=== PATIENT | female | born 1940 | race Caucasian/White ===

== ENCOUNTER 2017-08-09 20:47 | Emergency (ER) | payer MEDICARE ==
[~2017-08-09] VITALS: Ht 147.3 cm; Wt 53.1 kg
[~2017-08-09 20:47] MED LIST: ASPIRIN CHEW81 MG PO; CLONAZEPAM0.5 MG PO; DEXILANT60 MG PO; DICYCLOMINE HCL10 MG PO; GABAPENTIN300 MG PO; GLYBURID-METFO1 EAC3 PO; HUMALOG100 UNIT/1 SQ; HYDROCODON-ACE1 EA12 PO; HYDROCODONE AP PO; IRON PO; LANTUS100 UNITS/ SQ; LEVOTHYROXINE100 MCG PO; LIPITOR20 MG PO; LOSARTAN-HCTZ1 EAC2 PO; METFORMIN HCL500 MG PO; METOPROLOL TART25 MG PO; NORCO 5-325 TA1 EACH PO; NORCO 7.5-3251 EACH PO; ONDANSETRON ODT8 MG PO; PLAVIX75 MG PO; PROTONIX40 MG PO; RANITIDINE HCL150 MG PO; RESTORIL15 MG PO; ROPINIROLE PO; TEMAZEPAM15 MG PO; Z ERYTHROMYCIN OU; Z.0.CLONAZEPAM0.5 MG PO; Z.0.GABAPENTIN300 MG PO; Z.0.LANTUS100 UNIT/1 SC; Z.0.LEVOTHYROXINE88 PO; [UNRECOGNIZED DRUG - OTHER] PO
--- OUTSIDE RECORDS SUMMARY | 2017-08-09 20:49 | XMS REPORT | Continuity of Care Document ---
Author Author [facility] Organization [facility] Address [address] [place] [address] Phone Unavailable Care Team Providers Care Physical Testing Supervisor Name Role Phone ELIDAROSEANNE DUBOIS PCP Insurance Providers Guarantor Merissa Romo Address [address] [phone] Email [email or web address] Payer [facility] Policy Number [id number] Subscriber's Name RubiMerissa trujillo Relationship 18 Self / Same As Patient Group Name RETIRED Effective Date 17 Payer Medicare A & B Policy Number [id number] Subscriber's Name RubiMerissa Centeno Relationship 18 Self / Same As Patient Group Name RETIRED Effective Date 05 Advance Directives Directive Response Recorded Date/Time Does the patient have an advance directive? No 05/28/17 11:42pm If yes, is advance directive on file with [facility]? No 05/28/17 11:42pm If not on file with [facility] will patient provide a copy? No 05/28/17 11:42pm Do you have a Directive to Physician? No 05/28/17 3:54pm Do you have a Medical Power of Process Plant Operator? No 05/28/17 3:54pm Do you have an out of hospital Do Not Resuscitate Order? No 05/28/17 3:54pm Do you have any special needs we should be aware of? No 05/28/17 3:54pm Do you have a support person here with you today? Yes 05/28/17 3:54pm Did patient receive Notice of Privacy Practices? Yes 05/28/17 3:54pm Did patient receive patient rights and responsibilities? Yes 05/28/17 3:54pm Problems Medical Problem Onset Date Status Acute urinary tract infection 01/01/2014 Acute Closed intertrochanteric fracture of right hip Unknown Hip fracture, right Unknown Hypokalemia 01/01/2014 Acute Medications Current Home Medications Medication Dose Units Route Directions Days Qty Instructions Start Date Aspirin (Aspirin Chew) 81 Mg Chew 81 Mg Oral Daily 30 Tab Atorvastatin Calcium (Lipitor) 20 Mg Tablet 40 Mg Oral Daily 30 Tab Clonazepam 0.5 Mg Tablet 0.5 Mg Oral Daily Clopidogrel Bisulfate (Plavix) 75 Mg Tablet 75 Mg Oral Daily 30 Tab Dexlansoprazole (Dexilant) 60 Mg Cap. 60 Mg Oral Daily THERAPEUTIC INTERCHANGE WITH PROTONIX PER [facility] Dicyclomine Hcl 10 Mg Capsule 10 Mg Oral Daily Gabapentin 300 Mg Capsule 300 Mg Oral Three Times A Day 60 Cap Gabapentin 300 Mg Capsule 300 Mg Oral Three Times A Day 90 Cap Hydrocodone Bit/Acetaminophen ([place] 5-325 Tablet) 1 Each Tablet 1 Each Oral As Needed Hydrocodone Bit/Acetaminophen ([place] 5-325 Tablet) 1 Each Tablet 1 Each Oral Three Times A Day 90 Tab Insulin Glargine (Lantus) 100 Units/Ml Ml 25 Units Sub-Q Twice A Day Insulin Lispro (Humalog) 100 Unit/1 Ml Cartridge 8 Units Sub-Q Three Times A Day Levothyroxine Sodium 100 Mcg Tablet 100 Mcg Oral Daily Losartan/Hydrochlorothiazide (Losartan-Hctz 100-12.5 Mg Tab) 1 Each Tablet Oral Daily Metoprolol Tartrate 25 Mg Tablet 25 Mg Oral Twice A Day Ondansetron (Ondansetron Odt) 8 Mg Tab.rapdis 8 Mg Oral As Needed Pantoprazole Sodium (Protonix) 40 Mg Suspdr.pkt 40 Mg Oral Daily 30 Tab Temazepam (Restoril) 15 Mg Capsule 15 Mg Oral Bedtime 30 Tab Temazepam 15 Mg Capsule Oral Bedtime 30 Past Home Medications Medication Directions Ordered Status Hydrocodone Bit/Acetaminophen (Hydrocodon-Acetaminoph 7.5-325) 1 Each Tablet, Oral As Needed Discontinued Hydrocodone Bit/Acetaminophen ([place] 7.5-325 Tablet) 1 Each Tablet, 1 Ea Oral Every 4 Hours as needed for Pain Discontinued Ropinirole , 2 Mg Oral Daily Discontinued Social History Social History Problem Response Recorded Date/Time Onset Date Status Hx Psychiatric Problems No 05/28/2017 11:42pm Not Applicable Not Applicable Hx Eating Disorder No 05/28/2017 11:42pm Not Applicable Not Applicable Hx Substance Use Disorder No 05/28/2017 11:42pm Not Applicable Not Applicable Hx Depression No 05/28/2017 11:42pm Not Applicable Not Applicable Hx Alcohol Use No 05/28/2017 11:42pm Not Applicable Not Applicable Hx Substance Use Treatment No 05/28/2017 11:42pm Not Applicable Not Applicable Hx Physical Abuse No 05/28/2017 11:42pm Not Applicable Not Applicable Smoking Status Start Date Stop Date Never Smoker Hospital Discharge Instructions No hospital discharge instruction information available. Plan of Care Discharge Date 06/07/17 4:53pm Disposition HOME HEALTH SERVICE Prescriptions See Medication Section Functional Status Query Response Date Recorded FUNCTIONAL STATUS ` June 02, 2017 3:00pm Assistive Devices Small Base Quad Cane May 29, 2017 12:01am Ambulation Ability Independent May 29, 2017 12:01am Toileting Ability Total Assistance June 05, 2017 5:54pm Allergies, Adverse Reactions, Alerts No known allergies. Immunizations No immunization information available. Vital Signs Acute Vital Signs Vital Response Date/Time Temperature (Fahrenheit) 97.5 degrees F (97.6 - 99.5) 06/07/2017 3:24pm Pulse Pulse Rate (adult) 68 bpm (60 - 90) 06/07/2017 3:24pm Respiratory Rate 20 bpm (12 - 24) 06/07/2017 3:24pm Blood Pressure 129/63 mm Hg 06/07/2017 3:24pm Height 4 ft 10 in 05/28/2017 2:35pm Weight 117.25 lb 05/28/2017 10:00pm Body Mass Index 24.5 kg/m^2 05/28/2017 11:42pm Results Laboratory Results Test Name Result Units Flags Reference Collection Date/Time Result Date/ Time Comments White Blood Count 12.05 x10e3/uL H 4.8-10.8 06/01/2017 6:45am 2017 7:44am Red Blood Count 3.11 x10e6/uL L 3.6-5.1 06/01/2017 6:45am 06/01/2017 7: 44am Hemoglobin 9.6 g/dL L 12.0-16.0 06/04/2017 6:35am 06/04/2017 7:21am Hematocrit 27.9 % L 34.2-44.1 06/04/2017 6:35am 06/04/2017 7:21am Mean Corpuscular Volume 85.5 fL 81-99 06/01/2017 6:45am 06/01/2017 7: 44am Mean Corpuscular Hemoglobin 28.9 pg 28-32 06/01/2017 6:45am 06/01/2017 7:44am Mean Corpuscular Hemoglobin Concent 33.8 g/dL 31-35 06/01/2017 6:45am 06/01/2017 7:44am Red Cell Distribution Width 13.8 % 11.7-14.4 06/01/2017 6:45am 2017 7:44am Platelet Count 307 x10e3/uL 140-360 06/01/2017 6:45am 06/01/2017 7: 44am Neutrophils (%) (Auto) 84.6 % H 38.7-80.0 06/01/2017 6:45am 06/01/2017 7 :44am Lymphocytes (%) (Auto) 6.6 % L 18.0-39.1 06/01/2017 6:45am 06/01/2017 7: 44am Monocytes (%) (Auto) 8.0 % 4.4-11.3 06/01/2017 6:45am 06/01/2017 7: 44am Eosinophils (%) (Auto) 0.0 % 0.0-6.0 06/01/2017 6:45am 06/01/2017 7: 44am Basophils (%) (Auto) 0.1 % 0.0-1.0 06/01/2017 6:45am 06/01/2017 7:44am IM GRANULOCYTES % 0.7 % 0.0-1.0 06/01/2017 6:45am 06/01/2017 7:44am Neutrophils # (Auto) 10.2 H 2.1-6.9 06/01/2017 6:45am 06/01/2017 7: 44am Lymphocytes # (Auto) 0.8 L 1.0-3.2 06/01/2017 6:45am 06/01/2017 7: 44am Monocytes # (Auto) 1.0 H 0.2-0.8 06/01/2017 6:45am 06/01/2017 7:44am Eosinophils # (Auto) 0.0 0.0-0.4 06/01/2017 6:45am 06/01/2017 7:44am Basophils # (Auto) 0.0 0.0-0.1 06/01/2017 6:45am 06/01/2017 7:44am Absolute Immature Granulocyte (auto 0.09 x10e3/uL 0-0.1 06/01/2017 6: 45am 06/01/2017 7:44am Prothrombin Time 13.5 seconds 11.9-14.5 05/28/2017 8:15pm 05/28/2017 8: 27pm Prothromb Time International Ratio 1.11 05/28/2017 8:15pm 2017 8:27pm Oral Anticoagulant Therapy INR Values: 1. Low Intensity Therapy 1.5 - 2.0 2. Moderate Intensity Therapy 2.0 - 3.0 3. High Intensity Therapy(1) 2.5 - 3.5 4. High Intensity Therapy(2) 3.0 - 4.0 5. Panic Value INR > 5.0 Activated Partial Thromboplast Time 27.2 seconds 23.8-35.5 05/28/2017 8: 15pm 05/28/2017 8:27pm Urine Color YELLOW YELLOW 05/31/2017 3:10pm 05/31/2017 3:20pm Urine Clarity SL CLOUDY CLEAR 05/31/2017 3:10pm 05/31/2017 3:20pm Urine Specific [place] 1.015 1.010-1.025 05/31/2017 3:10pm 2017 3:20pm Urine pH 5 5 - 7 05/31/2017 3:10pm 05/31/2017 3:20pm Urine Leukocyte Esterase NEGATIVE NEGATIVE 05/31/2017 3:10pm 2017 3:20pm Urine Nitrite NEGATIVE NEGATIVE 05/31/2017 3:10pm 05/31/2017 3:20pm Urine Protein TRACE H NEGATIVE 05/31/2017 3:10pm 05/31/2017 3:20pm Urine Glucose (UA) 3+ H NEGATIVE 05/31/2017 3:10pm 05/31/2017 3:20pm Urine Ketones NEGATIVE NEGATIVE 05/31/2017 3:10pm 05/31/2017 3:20pm Urine Urobilinogen 0.2 mg/dL 0.2 - 1 05/31/2017 3:10pm 05/31/2017 3: 20pm Urine Bilirubin NEGATIVE NEGATIVE 05/31/2017 3:10pm 05/31/2017 3: 20pm Urine Blood 2+ H NEGATIVE 05/31/2017 3:10pm 05/31/2017 3:20pm Urine WBC NONE /HPF 0-5 05/31/2017 3:10pm 05/31/2017 3:50pm Urine RBC NONE /HPF 0-5 05/31/2017 3:10pm 05/31/2017 3:50pm Urine Bacteria NONE /HPF NONE 05/31/2017 3:10pm 05/31/2017 3:50pm Urine Epithelial Cells NONE /LPF NONE 05/31/2017 3:10pm 05/31/2017 3: 50pm Urine Mucus FEW H RARE 05/28/2017 8:40pm 05/28/2017 9:07pm Sodium Level 132 mmol/L L 136-145 06/06/2017 6:30am 06/06/2017 7:23am Potassium Level 3.7 mmol/L 3.5-5.1 06/06/2017 6:30am 06/06/2017 7:23am Chloride Level 96 mmol/L L 98-107 06/06/2017 6:30am 06/06/2017 7:23am Carbon Dioxide Level 24 mmol/L 06/06/2017 6:30am 06/06/2017 7: 23am Anion Gap 15.7 mmol/L 8-06/06/2017 6:30am 06/06/2017 7:23am Blood Urea Nitrogen 15 mg/dL 11-0806/06/2017 6:30am 06/06/2017 7:23am Creatinine 0.79 mg/dL 0.57-1.11 06/06/2017 6:30am 06/06/2017 7:23am BUN/Creatinine Ratio 19 6-25 06/06/2017 6:30am 06/06/2017 7:23am Estimat Glomerular Filtration Rate > 60 ML/MIN 60- 06/06/2017 6:30am 7:23am Ranges were taken from the National Kidney Disease Education Program and the National Kid[employer] Foundation literature. Reference ranges: 60 or greater: Normal 16-59 (for 3 consecutive months): Chronic kidney disease 15 or less: Kidney failure Glucose Level 201 mg/dL H 74-118 06/06/2017 6:30am 06/06/2017 7:23am Calcium Level 8.6 mg/dL 8.4-10.2 06/06/2017 6:30am 06/06/2017 7:23am Bedside Glucose 165 mg/dL H 70-120 06/07/2017 3:35pm 06/07/2017 3:43pm Meter ID: [id number] Uric Acid 3.9 mg/dL 2.6-8.0 06/03/2017 12:17pm 06/03/2017 12:49pm Phosphorus Level 3.2 MG/DL 2.3-4.7 06/06/2017 6:30am 06/06/2017 7:23am Magnesium Level 0.9 MG/DL *L 1.3-2.1 06/06/2017 6:30am 06/06/2017 8:05am Results called to TIGIST RODRIGUEZ at 0804 on 06/06/17 by Ramona Ernst. RB OK. Total Bilirubin 1.5 mg/dL H 0.2-1.2 06/06/2017 6:30am 06/06/2017 7:23am Aspartate Amino Transf (AST/SGOT) 36 IU/L H 5-34 06/06/2017 6:30am 06/06 7:23am Alanine Aminotransferase (ALT/SGPT) 27 IU/L 0-55 06/06/2017 6:30am 7:23am Total Protein 5.9 g/dL L 6.5-8.1 06/06/2017 6:30am 06/06/2017 7:23am Albumin 2.2 g/dL L 3.5-5.0 06/06/2017 6:30am 06/06/2017 7:23am Globulin 3.7 g/dL H 2.3-3.5 06/06/2017 6:30am 06/06/2017 7:23am Albumin/Globulin Ratio 0.6 L 0.8-2.0 06/06/2017 6:30am 06/06/2017 7: 23am Alkaline Phosphatase 102 IU/L 40-150 06/06/2017 6:30am 06/06/2017 7: 23am Triglycerides Level 110 MG/DL 0-149 06/03/2017 12:17pm 06/03/2017 12: 49pm Cholesterol Level 78 MD/DL 0-199 06/03/2017 12:17pm 06/03/2017 12:49pm Less than 200 mg/dL Low Risk 201 - 239 mg/dL Borderline Risk 240 mg/dl and greater High Risk LDL Cholesterol 37 MG/DL L 60-130 06/03/2017 12:17pm 06/03/2017 12:49pm HDL Cholesterol 19 MG/DL L 40-60 06/03/2017 12:17pm 06/03/2017 12:49pm Cholesterol/HDL Ratio 4.1 H 3.0-3.6 06/03/2017 12:17pm 06/03/2017 12: 49pm Creatine Kinase 77 IU/L 29-168 06/03/2017 6:44am 06/03/2017 8:44am Creatine Kinase MB 1.50 ng/mL 0-5.0 06/03/2017 6:44am 06/03/2017 8: 50am Troponin I 0.00 ng/mL 0.0-0.78 06/03/2017 6:44am 06/03/2017 8:50am Thyroid Stimulating Hormone (TSH) 5.356 uIU/mL H 0.350-4.940 06/03/2017 12:17pm 06/03/2017 1:08pm Procedures Procedure Status Date Provider(s) Computed tomography of brain without radiopaque contrast Active 05/28/17 LLUVIA DIEGO NP MRI jnt of lwr extre w/o dye Active 05/28/17 LLUVIA DIEGO NP Magnetic resonance imaging of pelvis without contrast Active 05/28/17 DIEGO ,LLUVIA L HOUSING PROPERTY MANAGER Encounters Encounter Location Arrival/Admit Date Discharge/Depart Date Attending Provider Discharged Inpatient [facility] 05/28/17 9:54pm 06/07/17 4:53pm ROSEANNE MARRERO
--- NOTE | 2017-08-09 21:41 | Diagnostic Imaging Report ---
HIP LEFT 2-3 VW (+/- PELVIS) HISTORY: Hip pain. COMPARISON: MRI of the pelvis on 05/28/2017 FINDINGS: Bones: No displaced fracture. Postsurgical repair of intertrochanteric fracture with intramedullary gabriela and interlocking screw on the right hip Osseous alignment is within normal limits. Joints: Mild degenerative change of the symphysis pubis and left hip joint. Degenerative changes of the lower lumbar spine. Soft tissues: The soft tissues appear unremarkable. IMPRESSION: No acute osseous abnormality. Signed by: Dr. Meng Lay M.D. on 08/09/2017 9:37 PM
--- NOTE | 2017-08-10 00:28 | Diagnostic Imaging Report ---
TECHNIQUE: Computed tomography imaging of the LEFT HIP was performed WITHOUT injected contrast. HISTORY: Pain, evaluate for occult fracture COMPARISON: None available. FINDINGS: No displaced fracture. 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 Calcification within the left hamstring origin. Vascular calcifications. The bladder is distended. IMPRESSION: No displaced left hip fracture. Calcium pyrophosphate deposition within the left hip Signed by: Dr. Ari Marrero M.D. on 08/10/2017 7:07 AM
[2017-08-10 00:38] VITALS: BP 127/77
== END 2017-08-10 00:46 | disposition home or self-care (01) ==
LOC: ER 20:47 → MERGE 20:47 → ER 08-10 00:46
DX: M25.552 Pain in left hip (principal); M16.12 Unilateral primary osteoarthritis, left hip; I10 Essential (primary) hypertension; E11.9 Type 2 diabetes mellitus without complications; E03.9 Hypothyroidism, unspecified
CPT/HCPCS: 99284

== ENCOUNTER → 2017-10-05 | Day surgery (SDC) | payer MEDICARE ==
[2017-10-02 15:52] LABS: BASOPHILS # (AUTO) 0.1 (0.0-0.1); BASOPHILS % 1.1 % (0.0-1.0); EOSINOPHILS # (AUTO) 0.2 (0.0-0.4); EOSINOPHILS % 3.3 % (0.0-6.0); HEMATOCRIT 34.1 % (34.2-44.1); HEMOGLOBIN 12.2 g/dL (12.0-16.0); LYMPHOCYTES # (AUTO) 2.3 (1.0-3.2); LYMPHOCYTES % 41.3 % (18.0-39.1); MEAN CORPUSCULAR HEMOGLOBIN 31.1 pg (28-32); MEAN CORPUSCULAR HGB CONC 35.8 g/dL (31-35); MONOCYTES # (AUTO) 0.5 (0.2-0.8); MONOCYTES % 8.6 % (4.4-11.3); NEUTROPHILS # (AUTO) 2.5 (2.1-6.9); NEUTROPHILS % 44.8 % (38.7-80.0); PLATELET COUNT 315 x10e3/uL (140-360); RED BLOOD COUNT 3.92 x10e6/uL (3.6-5.1); RED CELL DISTRIBUTION WIDTH 14.5 % (11.7-14.4)
[~2017-10-05] MED LIST changes: +LABETALOL HCL 20 ML ONE; +MIDAZOLAM HCL 2 MG/2 ML VIAL ONE; +PROPOFOL IV EMULSION 10 MG/ML 20 ML VIAL ONE
--- NOTE | 2017-10-05 17:23 | Operative Report ---
DATE OF PROCEDURE: October 05, 2017 REFERRING PHYSICIAN: Dr. Dupont. PROCEDURE PERFORMED: Esophagogastroduodenoscopy with esophageal dilatation and biopsy. INDICATIONS FOR ESOPHAGOGASTRODUODENOSCOPY: Dysphagia. MEDICATION: Patient was done under MAC. Please see anesthesiologist's note. PROCEDURE: With the patient in lateral decubitus position, flexible fiberoptic Olympus gastroscope was introduced into the esophagus under direct visualization without any difficulty. There was some patchy erythema noted in distal esophagus. There was a mild stricture noted at the GE junction that was dilated to size 52-[place] Peace. The scope was then advanced with ease into the stomach. Mucosa overlying the antrum and the body revealed some patchy areas of erythema. A minute gastric ulcer was noted in the peripyloric area without active bleeding and that was biopsied. The pylorus appeared to be of normal contour and shape. Was intubated with ease and the scope was advanced all the way to the 2nd portion of the duodenum. The scope was then withdrawn slowly. There were some mild inflammatory changes noted in the proximal 2nd portion. In the duodenal bulb several ulcers were noted. They were superficial up to 8 mm in size without active bleeding or stigmata of recent hemorrhage. The scope was then withdrawn back into the stomach and retroflexed, and mucosa overlying the fundus and the cardia appeared to be within normal limits. The scope was then straightened out and was subsequently withdrawn. Patient tolerated procedure well. IMPRESSION: 1. Distal esophagitis, mild. 2. Esophageal stricture at gastroesophageal junction dilated to a size 52-[place] Peace. 3. Gastritis, mild. 4. Gastric ulcer, antrum, biopsied. 5. Duodenal ulcers , bulb, multiple, largest approximately 8 mm in size without active bleeding or stigmata of recent hemorrhage. PLAN: Follow up histology. Initiate Protonix 40 mg 1 p.o. q.a.m. a.c. Job#: [id number] cc:ROSEANNE DUPONT MD
== END | disposition home or self-care (01) ==
LOC: OR 12:45
PROVIDERS: ATTEND Internal Medicine Gastroenterology
DX: K22.2 Esophageal obstruction (principal); K29.50 Unspecified chronic gastritis without bleeding; K25.9 Gastric ulcer, unspecified as acute or chronic, without hemorrhage or perforation; K26.9 Duodenal ulcer, unspecified as acute or chronic, without hemorrhage or perforation; K20.9 Esophagitis, unspecified; K21.9 Gastro-esophageal reflux disease without esophagitis; E11.9 Type 2 diabetes mellitus without complications; I10 Essential (primary) hypertension; I25.2 Old myocardial infarction; I25.10 Atherosclerotic heart disease of native coronary artery without angina pectoris; E03.9 Hypothyroidism, unspecified; G62.9 Polyneuropathy, unspecified; E78.00 Pure hypercholesterolemia, unspecified; R05 Cough; F41.9 Anxiety disorder, unspecified; Z01.810 Encounter for preprocedural cardiovascular examination; Z01.812 Encounter for preprocedural laboratory examination; Z79.02 Long term (current) use of antithrombotics/antiplatelets; Z79.4 Long term (current) use of insulin; Z79.82 Long term (current) use of aspirin; Z95.5 Presence of coronary angioplasty implant and graft
CPT/HCPCS: 36415; 43239; 43450; 85025; 88305; 88312; 93005; J2250; J3490

== ENCOUNTER → 2018-05-02 | Outpatient (CLI) | payer MEDICARE ==
[~2018-05-02] MED LIST changes: -LABETALOL HCL 20 ML ONE; -MIDAZOLAM HCL 2 MG/2 ML VIAL ONE; -PROPOFOL IV EMULSION 10 MG/ML 20 ML VIAL ONE
--- NOTE | 2018-05-03 07:47 | Diagnostic Imaging Report ---
MRI SPINE LUMBAR WO HISTORY: Sciatica, left hip pain COMPARISON: None. TECHNIQUE: Sagittal T1, sagittal T2, sagittal STIR, axial T2, coronal T2, and axial proton density weighted images of the lumbar spine were obtained without contrast. DISCUSSION: There are 5 nonrib-bearing lumbar vertebral bodies. L5 is sacralized with bilateral pseudoarthroses and rudimentary L5-S1 disc. There may be rudimentary ribs at T12. The vertebral bodies are numbered accordingly. Alignment: Slight straightening of the lumbar lordosis. Thoracolumbar levoscoliosis is centered at L1-L2. Vertebrae: No definite evidence for fracture or neoplasm. Conus medullaris: Normal, ends at L1. Cauda equina: There is mild cauda equina crowding at L3-L4. No masses or arachnoiditis. Posterior paraspinal muscles: There is bilateral paraspinal muscle atrophy at the lumbosacral junction. Soft tissues: No signal abnormalities. Multilevel disc degeneration is advanced at L1-L2, L3-L4, and L4-L5. There are nonspecific minimal multilevel inflammatory endplate changes. T12-L1: Patent canal and foramina. L1-L2: Mild canal stenosis due to disc bulge and ligamentum flavum thickening. Moderate right foraminal stenosis due to disc bulge and facet arthrosis. No significant left foraminal stenosis. L2-L3: Mild canal stenosis due to disc bulge and ligamentum flavum thickening. Mild to moderate right and mild left foraminal stenoses due to disc bulge and facet arthrosis. Small bilateral facet effusions are present, right greater than left. L3-L4: There is mild left lateral listhesis of L3 on L4. Moderate canal stenosis due to disc bulge and ligamentum flavum thickening. Both lateral recesses are effaced. Moderate to severe right and moderate left foraminal stenoses due to disc bulge and facet arthrosis. There is impingement of the exiting right L3 nerve root. Small bilateral facet effusions are present. L4-L5: Moderate canal stenosis due to disc bulge and ligamentum flavum thickening. Both lateral recesses are slightly effaced. Severe left foraminal stenosis due to disc bulge and facet arthrosis. There is impingement of the exiting left L4 nerve root. No significant right foraminal stenosis. Small bilateral facet effusions are present. L5-S1: Patent canal and foramina. IMPRESSION: 1. Multilevel disc degeneration, advanced at L1-L2, L3-L4, and L4-L5, with nonspecific minimal multilevel inflammatory endplate changes. Associated thoracolumbar levoscoliosis centered at L1-L2. 2. Multilevel degenerative canal stenoses - moderate at L3-L4 and L4-L5. 3. Multilevel bilateral degenerative foraminal stenoses - moderate to severe on the right at L3-L4 and severe on the left at L4-L5. Signed by: Dr. Dennis Resendiz M.D. on 05/03/2018 7:44 AM
== END ==
LOC: MRI 16:06
PROVIDERS: ATTEND Specialist
DX: M54.30 Sciatica, unspecified side (principal)
CPT/HCPCS: 72148

== ENCOUNTER → 2018-09-23 | Day surgery (SDC) | payer MEDICARE ==
[2018-09-16 17:26] LABS: BASOPHILS # (AUTO) 0.1 (0.0-0.1); BASOPHILS % 0.5 % (0.0-1.0); EOSINOPHILS # (AUTO) 0.1 (0.0-0.4); HEMATOCRIT 42.6 % (34.2-44.1); HEMOGLOBIN 13.9 g/dL (12.0-16.0); LYMPHOCYTES # (AUTO) 2.7 (1.0-3.2); LYMPHOCYTES % 25.6 % (18.0-39.1); MEAN CORPUSCULAR HEMOGLOBIN 30.2 pg (28-32); MEAN CORPUSCULAR HGB CONC 32.6 g/dL (31-35); MEAN CORPUSCULAR VOLUME 92.6 fL (81-99); MONOCYTES # (AUTO) 0.6 (0.2-0.8); MONOCYTES % 5.4 % (4.4-11.3); NEUTROPHILS % 66.8 % (38.7-80.0); PLATELET COUNT 277 x10e3/uL (140-360); RED CELL DISTRIBUTION WIDTH 13.9 % (11.7-14.4)
[~2018-09-23] MED LIST changes: +CLOPIDOGREL75 MG PO; +FENTANYL CITRATE/PF 100MCG/2 ML INJ ONE; +LIDOCAINE HCL 2% LOCAL INJ 5 ML SDV VIAL INJ ONE; +MIDAZOLAM HCL 2 MG/2 ML VIAL ONE; +OMEPRAZOLE40 MG PO; +PROPOFOL IV EMULSION 10 MG/ML 50 ML VIAL ONE
[2018-09-23 11:10] VITALS: BP 123/70
--- NOTE | 2018-09-23 17:16 | Operative Report ---
DATE OF PROCEDURE: 09/23/2018 SURGEON: Fidel Hilario MD REFERRING PHYSICIAN: Dr. Dupont. PROCEDURE: EGD with esophageal dilatation and pyloric channel dilatation per TTS balloon dilators. INDICATIONS FOR PROCEDURE: Dysphagia to solids. MEDICATIONS: The patient was done under MAC, please see anesthesiologist's note. PROCEDURE IN DETAIL: With the patient in left lateral decubitus position, flexible fiberoptic Olympus gastroscope was introduced into the esophagus under direct visualization without any difficulty. There was some patchy erythema noted in the distal esophagus. A mild stricture was noted at the GE junction and was dilated to size 52-[place] Peace. The scope was then advanced with ease into the stomach. Mucosa overlying the antrum and the distal body revealed some diffuse erythema and low-grade to moderate edema. Biopsies were obtained and sent to stain for H. pylori. Large amount of retained undigested food was also noted in the stomach precluding visualization of the fundus and the proximal half of the body. The pyloric channel was strictured and that was dilated to size 20 mm per TTS balloon dilators. The scope was then advanced with ease into the duodenum all the way to the second portion of the duodenum and it was then withdrawn slowly. Mucosa overlying the proximal and second portion and duodenal bulb appeared to be within normal limits. The scope was subsequently withdrawn. The patient tolerated the procedure well. IMPRESSION: 1. Distal esophagitis, mild. 2. Esophagus dilated to size 52-[place] Peace. 3. Gastritis, biopsied. Biopsies sent to stain for H. pylori. Large amount of retained undigested food in stomach precluding visualization of fundus and proximal half of the body. 4. Pyloric channel stricture dilated to size 20 mm per TTS balloon dilators. PLAN: Follow up histology. Increase omeprazole to 40 mg one p.o. a.c. b.i.d. Fidel Hilario MD [facility] [place] /[id number] cc: Diomedes Dupont MD
== END | disposition home or self-care (01) ==
LOC: OR 08:05
PROVIDERS: ATTEND Internal Medicine Gastroenterology
DX: K22.2 Esophageal obstruction (principal); R13.10 Dysphagia, unspecified; R12 Heartburn; R14.0 Abdominal distension (gaseous); Z01.810 Encounter for preprocedural cardiovascular examination; Z01.812 Encounter for preprocedural laboratory examination; K64.8 Other hemorrhoids; Z86.010 Personal history of colon polyps; K57.90 Diverticulosis of intestine, part unspecified, without perforation or abscess without bleeding; K20.8 Other esophagitis; I10 Essential (primary) hypertension; K26.9 Duodenal ulcer, unspecified as acute or chronic, without hemorrhage or perforation; E11.9 Type 2 diabetes mellitus without complications; E03.9 Hypothyroidism, unspecified; K21.9 Gastro-esophageal reflux disease without esophagitis; I25.2 Old myocardial infarction; Z95.5 Presence of coronary angioplasty implant and graft; Z80.9 Family history of malignant neoplasm, unspecified; Z83.3 Family history of diabetes mellitus; Z82.49 Family history of ischemic heart disease and other diseases of the circulatory system; K29.70 Gastritis, unspecified, without bleeding; K31.1 Adult hypertrophic pyloric stenosis; I25.10 Atherosclerotic heart disease of native coronary artery without angina pectoris
CPT/HCPCS: 36415 ×2; 43239; 43245; 43450; 82948; 85025; 88305; 88312; 93005; C1726; J2001; J2250; J2704

== ENCOUNTER 2019-07-31 05:55 | Inpatient (IN) | payer MEDICARE, OTHER ==
[2019-07-31] VITALS (11 sets, daily range): BP systolic 95–142; BP diastolic 55–88
[~2019-07-31] VITALS: Ht 147.3 cm; Wt 69.6 kg
[~2019-07-31 05:55] MED LIST changes: -FENTANYL CITRATE/PF 100MCG/2 ML INJ ONE; +KLONOPIN0.5 MG PO; +LEVOTHYROXINE100 MC1 PO; -LIDOCAINE HCL 2% LOCAL INJ 5 ML SDV VIAL INJ ONE; -MIDAZOLAM HCL 2 MG/2 ML VIAL ONE; +OMEPRAZOLE20 MG PO; -PROPOFOL IV EMULSION 10 MG/ML 50 ML VIAL ONE
--- OUTSIDE RECORDS SUMMARY | 2019-07-31 05:59 | XMS REPORT ---
Author Author [facility] Address Unknown Phone Unavailable Care Team Providers Care Financial Accounting Manager Name Role Phone NO, PCP PP Unavailable Sebastián NELSON Unavailable Unavailable KAM ARRINGTON Unavailable Unavailable Yang JACOBSEN Unavailable Unavailable ELIDA LUCIADAVARACHANI Unavailable Unavailable BANDHAKAVI, SUBHADRA Unavailable Unavailable NARESH PINEDA Unavailable Unavailable LYNSEY GARCIA Unavailable Unavailable Payers Payer Name Policy Type Policy Number Effective Date Expiration Date Medicare A & B [id number] 2005 00:00:00 [facility] [id number] [facility] [id number] 2017 00:00:00 Medicare A & B [id number] 2005 00:00:00 [facility] [id number] 2017 00:00:00 Medicare A & B [id number] 2005 00:00:00 Problems Condition Name Condition Details Condition Category Status Onset Date Resolution Date Last Treatment Date Treating Clinician Comments Acute urinary tract infection Problem Active 2014-01-01 00:00:00 Hypokalemia Problem Active 2014-01-01 00:00:00 Closed intertrochanteric fracture of right femur Closed intertrochanteric fracture of right hip Problem Active Fracture of right hip Hip fracture, right Problem Active Allergies, Adverse Reactions, Alerts This patient has no known allergies or adverse reactions. Medications Ordered Medication Name Filled Medication Name Start Date Stop Date Current Medication? Ordering Clinician Indication Dosage Frequency Signature (SIG) Comments Components Atorvastatin Calcium (Lipitor) 20 Mg Tablet Atorvastatin Calcium (Lipitor) 20 Mg Tablet Yes 40 Bedtime Clonazepam (Klonopin) 0.5 Mg Tablet Clonazepam (Klonopin) 0.5 Mg Tablet Yes .5 Daily Clopidogrel Bisulfate (Plavix) 75 Mg Tablet Clopidogrel Bisulfate (Plavix) 75 Mg Tablet Yes 75 Daily Hydrocodone Bit/Acetaminophen ([place] 5-325 Tablet) 1 Each Tablet Hydrocodone Bit/Acetaminophen ([place] 5-325 Tablet) 1 Each Tablet Yes 1 Every 8 Hours as needed for Pain Levothyroxine Sodium 100 Mcg Vial Levothyroxine Sodium 100 Mcg Vial Yes 150 Daily Metoprolol Tartrate 25 Mg Tablet Metoprolol Tartrate 25 Mg Tablet Yes 25 Twice A Day Omeprazole 20 Mg Capsule. Omeprazole 20 Mg Capsule. Yes 20 Daily Temazepam 15 Mg Capsule Temazepam 15 Mg Capsule Yes 15 Bedtime Aspirin (Aspirin Chew) 81 Mg Chew Aspirin (Aspirin Chew) 81 Mg Chew Yes 81 Daily Atorvastatin Calcium (Lipitor) 20 Mg Tablet Atorvastatin Calcium (Lipitor) 20 Mg Tablet Yes 40 Daily Clonazepam 0.5 Mg Tablet Clonazepam 0.5 Mg Tablet Yes .5 Daily Clopidogrel Bisulfate (Plavix) 75 Mg Tablet Clopidogrel Bisulfate (Plavix) 75 Mg Tablet Yes 75 Daily Dexlansoprazole (Dexilant) 60 Mg Cap. Dexlansoprazole (Dexilant) 60 Mg Cap. Yes 60 Daily Dicyclomine Hcl 10 Mg Capsule Dicyclomine Hcl 10 Mg Capsule Yes 10 Daily Gabapentin 300 Mg Capsule Gabapentin 300 Mg Capsule Yes 300 Three Times A Day Gabapentin 300 Mg Capsule Gabapentin 300 Mg Capsule Yes 300 Three Times A Day Hydrocodone Bit/Acetaminophen ([place] 5-325 Tablet) 1 Each Tablet Hydrocodone Bit/Acetaminophen ([place] 5-325 Tablet) 1 Each Tablet Yes 1 As Needed Hydrocodone Bit/Acetaminophen ([place] 5-325 Tablet) 1 Each Tablet Hydrocodone Bit/Acetaminophen ([place] 5-325 Tablet) 1 Each Tablet Yes 1 Three Times A Day Insulin Glargine (Lantus) 100 Units/Ml Ml Insulin Glargine (Lantus) 100 Units/Ml Ml Yes 25 Twice A Day Insulin Lispro (Humalog) 100 Unit/1 Ml Cartridge Insulin Lispro (Humalog) 100 Unit/1 Ml Cartridge Yes 8 Three Times A Day Levothyroxine Sodium 100 Mcg Tablet Levothyroxine Sodium 100 Mcg Tablet Yes 100 Daily Losartan/Hydrochlorothiazide (Losartan-Hctz 100-12.5 Mg Tab) 1 Each Tablet Losartan/Hydrochlorothiazide (Losartan-Hctz 100-12.5 Mg Tab) 1 Each Tablet Yes Daily Metoprolol Tartrate 25 Mg Tablet Metoprolol Tartrate 25 Mg Tablet Yes 25 Twice A Day Ondansetron (Ondansetron Odt) 8 Mg Tab.rapdis Ondansetron (Ondansetron Odt) 8 Mg Tab.rapdis Yes 8 As Needed Pantoprazole Sodium (Protonix) 40 Mg Suspdr.pkt Pantoprazole Sodium (Protonix) 40 Mg Suspdr.pkt Yes 40 Daily Temazepam (Restoril) 15 Mg Capsule Temazepam (Restoril) 15 Mg Capsule Yes 15 Bedtime Temazepam 15 Mg Capsule Temazepam 15 Mg Capsule Yes Bedtime Hydrocodone Bit/Acetaminophen (Hydrocodon-Acetaminoph 7.5-325) 1 Each Tablet, Oral Hydrocodone Bit/Acetaminophen (Hydrocodon-Acetaminoph 7.5-325) 1 Each Tablet, Oral 2016-06-21 00:00:00 No As Needed Hydrocodone Bit/Acetaminophen ([place] 7.5-325 Tablet) 1 Each Tablet, 1 Ea Oral Hydrocodone Bit/Acetaminophen ([place] 7.5-325 Tablet) 1 Each Tablet, 1 Ea Oral 2016-06-21 00:00:00 No 1 Every 4 Hours as needed for Pain Ropinirole , 2 Mg Oral Ropinirole , 2 Mg Oral 2014-01-01 00:00:00 No 2 Daily Procedures and Interventions Procedure Date / Time Performed Performing Clinician Computed tomography, lower extremity; without contrast material 2017-08-09 00:00:00 AUSTIN JACOBSEN TRANSFUSE NONAUT RED BLOOD CELLS IN PERIPH VEIN, PERC 2017-06-03 00:00:00 ELIDA, THANDAVARAJAN INSERTION OF INTRAMED FIX INTO R UP FEMUR, PERC APPROACH 2017-06-02 00:00:00 KAM ARRINGTON Computed tomography of brain without radiopaque contrast 2017-05-28 00:00:00 LLUVIA DIEGO MRI jnt of lwr extre w/o dye 2017-05-28 00:00:00 LLUVIA DIEGO Magnetic resonance imaging of pelvis without contrast 2017-05-28 00:00:00 LLUVIA DIEGO Encounters Start Date/Time End Date/Time Encounter Type Admission Type Attending Clinicians Care Facility Care Department Encounter ID 2018-08-06 17:47:00 2018-08-08 13:03:00 Discharged Inpatient (obs) 1 EDIL NELSON [facility] [id number] 2017-08-09 20:47:00 2017-08-10 00:46:00 Departed Emergency Room ER AUSTIN JACOBSEN [facility] [id number] 2017-05-28 21:54:00 2017-06-07 16:53:00 Discharged Inpatient ER ROSEANNE MARRERO [facility] [id number] Results Test Description Test Time Test Comments Text Results Atomic Results Result Comments Bedside Glucose 2018-08-08 07:27:00 Bedside Glucose (test ofum=25103-1) 295 70-120 Meter ID: [id number] Kinase ME2656-21-54 13:57:00* Test Item Value Reference Range Comments Creatine Kinase MB (test btko=85786-2) 1.90 0-5.0 Troponin E0051-95-49 13:57:00* Test Item Value Reference Range Comments Troponin I (test bvfw=JRG8380) 0.010 0-0.300 Creatine Kctzgj9625-41-59 13:49:00* Test Item Value Reference Range Comments Creatine Kinase (test rcjj=4888-6) 57 29-168 Triglycerides Jaupk0196-86-51 06:09:00* Test Item Value Reference Range Comments Triglycerides Level (test uiay=8788-1) 109 0-149 Cholesterol Bzfce7610-20-66 06:09:00* Test Item Value Reference Range Comments Cholesterol Level (test ppae=4692-4) 96 0-199 Less than 200 mg/dL Low Xgou340 - 239 mg/dL Borderline Kupa046 m g/dl and greater High Risk LDL Emxnyyhgtpc0862-34-20 06:09:00* Test Item Value Reference Range Comments LDL Cholesterol (test aify=0018-2) 38 60-130 HDL Nfraglkehkc8655-61-89 06:09:00* Test Item Value Reference Range Comments HDL Cholesterol (test liwd=5337-2) 36 40-60 Cholesterol/HDL Csogx6581-03-80 06:09:00* Test Item Value Reference Range Comments Cholesterol/HDL Ratio (test ccxh=4867-0) 2.7 3.0-3.6 Urine BII7250-72-59 15:23:00* Test Item Value Reference Range Comments Urine WBC (test jwdt=8537-5) NONE 0-5 Urine ZRB5374-55-83 15:23:00* Test Item Value Reference Range Comments Urine RBC (test jtmf=13585-5) NONE 0-5 Urine Yxfwngnj4633-45-27 15:23:00* Test Item Value Reference Range Comments Urine Bacteria (test tjyj=84425-4) FEW NONE Urine Epithelial Opfsl9376-61-96 15:23:00* Test Item Value Reference Range Comments Urine Epithelial Cells (test jvvm=35859-5) MODERATE NONE Influenza Virus Types A,B Zlkclke4772-48-18 15:10:00* Test Item Value Reference Range Comments Influenza Virus Types A,B Antigen (test hfoi=88671-0) NEGATIVE NEGATIVE CHEST SINGLE (PORTABLE)2018-08-06 15:10:00 [place] [address] Patient Name: DEMETRIUS ECHEVERRIA MR #: [id number] : 1940 Age/Sex: 77/F Req #: [id number] Adm Physician: Ordered by: SHAKIRA STROUD NP Report #: [id number] Location: ER Room/Bed: Procedure: [id number] DX/CHEST SINGLE (PORTABLE) Exam Date: 08/06/18 Exam Time: 1430 REPORT STATUS: Signed Examination: Single AP view of the chest. COMPARISON: None. INDICATI ON: Chest pain DISCUSSION: Lines/tubes: None. Lungs: The l ungs are well inflated and clear. No pneumonia or pulmonary edema. Pleura: No pleural effusion or pneumothorax. Heart and mediastinum: The heart and the mediastinum are unremarkable. Bones and soft tissues: No acute bony a bnormalities. IMPRESSION: 1. No acute cardiopulmonary abnormaliti es. Signed by: Dr. No Figueroa M.D. on 08/06/2018 3:11 PM Dictate d By: NO FIGUEROA MD 1511 COPY TO: MARIALUISA STROUD COMIC ARTIST B-Type Natriuretic Pnqvzpf2815-30-69 15:09:00* Test Item Value Reference Range Comments B-Type Natriuretic Peptide (test yecm=31656-8) 64.9 0-100 Sodium Neygv5243-57-18 15:03:00* Test Item Value Reference Range Comments Sodium Level (test pimg=9037-1) 135 136-145 Potassium Qynzr4761-06-69 15:03:00* Test Item Value Reference Range Comments Potassium Level (test fomd=0139-6) 3.4 3.5-5.1 Chloride Zagur4388-83-07 15:03:00* Test Item Value Reference Range Comments Chloride Level (test vvye=2872-6) 98 98-107 Carbon Dioxide Lcowk2407-61-83 15:03:00* Test Item Value Reference Range Comments Carbon Dioxide Level (test yqiy=9415-4) 26 22-29 Anion Apv5810-37-52 15:03:00* Test Item Value Reference Range Comments Anion Gap (test cmkg=12381-4) 14.4 8-16 Blood Urea Iuptilfb8938-14-70 15:03:00* Test Item Value Reference Range Comments Blood Urea Nitrogen (test vmwq=9709-2) 24 7-26 Dwcxlniprc9054-62-25 15:03:00* Test Item Value Reference Range Comments Creatinine (test fdjh=4294-2) 0.87 0.57-1.11 BUN/Creatinine Uidye5080-81-44 15:03:00* Test Item Value Reference Range Comments BUN/Creatinine Ratio (test ycsy=2043-7) 28 6-25 Estimat Glomerular Filtration Bnxg3522-77-34 15:03:00* Test Item Value Reference Range Comments Estimat Glomerular Filtration Rate (test oyui=098887971) > 60 >60 Ranges were taken from the National Kidney Disease Education Program and the [facility] Kidney Foundation literature.Reference ranges:60 or greater: Claxvm18-78 ( for 3 consecutive months): Chronic kidney disease 15 or less: Kidney failure Glucose Dnbxs3695-40-55 15:03:00* Test Item Value Reference Range Comments Glucose Level (test vobj=HAN9550) 185 74-118 Calcium Ccpvv1190-60-14 15:03:00* Test Item Value Reference Range Comments Calcium Level (test mgap=15372-2) 9.9 8.4-10.2 Magnesium Bhwqy8371-46-18 15:03:00* Test Item Value Reference Range Comments Magnesium Level (test pulq=66295-4) 1.4 1.3-2.1 Total Wlbbkbggo8211-36-90 15:03:00* Test Item Value Reference Range Comments Total Bilirubin (test kkcv=5614-7) 1.3 0.2-1.2 Aspartate Amino Transf (AST/SGOT)2018-08-06 15:03:00* Test Item Value Reference Range Comments Aspartate Amino Transf (AST/SGOT) (test code=Aspartate Amino Transf (AST/SGOT)) 34 5-34 Alanine Aminotransferase (ALT/SGPT)2018-08-06 15:03:00* Test Item Value Reference Range Comments Alanine Aminotransferase (ALT/SGPT) (test nxjo=0441-3) 83 0-55 Total Solupnj8349-70-52 15:03:00* Test Item Value Reference Range Comments Total Protein (test mani=8866-8) 6.8 6.5-8.1 Bouelhh5516-25-20 15:03:00* Test Item Value Reference Range Comments Albumin (test dsit=8578-9) 3.3 3.5-5.0 Aiultyhv3361-69-03 15:03:00* Test Item Value Reference Range Comments Globulin (test zzsu=11508-9) 3.5 2.3-3.5 Albumin/Globulin Edqlb8370-15-18 15:03:00* Test Item Value Reference Range Comments Albumin/Globulin Ratio (test shnr=7410-8) 0.9 0.8-2.0 Alkaline Wzaulstgnir8553-90-95 15:03:00* Test Item Value Reference Range Comments Alkaline Phosphatase (test qkbr=8938-5) 91 40-150 Urine Yllqg9429-52-40 15:01:00* Test Item Value Reference Range Comments Urine Color (test usys=7148-6) YELLOW YELLOW Urine Mkwcgpv1850-95-80 15:01:00* Test Item Value Reference Range Comments Urine Clarity (test uact=41235-9) SL CLOUDY CLEAR Urine Specific Djyxufe7928-45-46 15:01:00* Test Item Value Reference Range Comments Urine Specific [place] (test cqoq=9712-0) 1.015 1.010-1.025 Urine tI4091-98-09 15:01:00* Test Item Value Reference Range Comments Urine pH (test yois=92976-2) 6 5-7 Urine Leukocyte Blheeiha8876-13-13 15:01:00* Test Item Value Reference Range Comments Urine Leukocyte Esterase (test korj=7891-9) TRACE NEGATIVE Urine Alflxpw0998-66-24 15:01:00* Test Item Value Reference Range Comments Urine Nitrite (test gzqt=01303-6) NEGATIVE NEGATIVE Urine Laprdcf5704-00-01 15:01:00* Test Item Value Reference Range Comments Urine Protein (test wkus=0548-5) 1+ NEGATIVE Urine Glucose (UA)2018-08-06 15:01:00* Test Item Value Reference Range Comments Urine Glucose (UA) (test mmfc=2991-7) 2+ NEGATIVE Urine Qxqvqvs0352-89-36 15:01:00* Test Item Value Reference Range Comments Urine Ketones (test qwup=55508-9) 1+ NEGATIVE Urine Pgzwecilldje4835-67-24 15:01:00* Test Item Value Reference Range Comments Urine Urobilinogen (test wcfv=91903-1) 0.2 0.2-1 Urine Iedtflcco8713-31-77 15:01:00* Test Item Value Reference Range Comments Urine Bilirubin (test khlo=5195-0) 1+ NEGATIVE Urine Unsqy8667-98-09 15:01:00* Test Item Value Reference Range Comments Urine Blood (test yefh=82544-8) NEGATIVE NEGATIVE Prothrombin Laot9899-01-15 14:59:00* Test Item Value Reference Range Comments Prothrombin Time (test vcyw=2124-8) 13.2 11.9-14.5 Prothromb Time International Wgipj6754-32-62 14:59:00* Test Item Value Reference Range Comments Prothromb Time International Ratio (test qoye=1044-7) 0.95 Oral Anticoagulant Therapy INR Values:1. Low Intensity Therapy 1.5 - 2.02 . Moderate Intensity Therapy 2.0 - 3.03. High Intensity Therapy(1) 2.5 - 3. 54. High Intensity Therapy(2) 3.0 - 4.05. Panic Value INR > 5.0 Activated Partial Thromboplast Iqgw5347-14-06 14:59:00* Test Item Value Reference Range Comments Activated Partial Thromboplast Time (test zkcf=70942-0) 20.0 23.8-35.5 NO CLOT DETECTED White Blood Fpxbq6580-57-89 14:49:00* Test Item Value Reference Range Comments White Blood Count (test bfhk=8537-9) 9.71 4.8-10.8 Red Blood Pkeym9097-46-79 14:49:00* Test Item Value Reference Range Comments Red Blood Count (test noxu=041-8) 4.46 3.6-5.1 Hxypgnyrbt4682-69-01 14:49:00* Test Item Value Reference Range Comments Hemoglobin (test hdqu=05672-4) 13.6 12.0-16.0 Khhcmrxkal3998-61-42 14:49:00* Test Item Value Reference Range Comments Hematocrit (test riga=6393-4) 38.2 34.2-44.1 Mean Corpuscular Uwqctg4655-47-16 14:49:00* Test Item Value Reference Range Comments Mean Corpuscular Volume (test kxsl=211-1) 85.7 81-99 Mean Corpuscular Osxixubfgn6937-55-59 14:49:00* Test Item Value Reference Range Comments Mean Corpuscular Hemoglobin (test ggdc=680-5) 30.5 28-32 Mean Corpuscular Hemoglobin Jxvzdyp1921-78-40 14:49:00* Test Item Value Reference Range Comments Mean Corpuscular Hemoglobin Concent (test fuej=840-4) 35.6 31-35 Red Cell Distribution Lushn9595-51-62 14:49:00* Test Item Value Reference Range Comments Red Cell Distribution Width (test ujsy=58539-0) 12.4 11.7-14.4 Platelet Bgkkt4793-98-64 14:49:00* Test Item Value Reference Range Comments Platelet Count (test qeys=648-7) 295 140-360 Neutrophils (%) (Auto)2018-08-06 14:49:00* Test Item Value Reference Range Comments Neutrophils (%) (Auto) (test ztqw=51370-5) 67.5 38.7-80.0 Lymphocytes (%) (Auto)2018-08-06 14:49:00* Test Item Value Reference Range Comments Lymphocytes (%) (Auto) (test rqdr=833-4) 25.5 18.0-39.1 Monocytes (%) (Auto)2018-08-06 14:49:00* Test Item Value Reference Range Comments Monocytes (%) (Auto) (test tqda=0160-0) 5.8 4.4-11.3 Eosinophils (%) (Auto)2018-08-06 14:49:00* Test Item Value Reference Range Comments Eosinophils (%) (Auto) (test biil=866-4) 0.3 0.0-6.0 Basophils (%) (Auto)2018-08-06 14:49:00* Test Item Value Reference Range Comments Basophils (%) (Auto) (test ukse=453-0) 0.2 0.0-1.0 IM GRANULOCYTES %2018-08-06 14:49:00* Test Item Value Reference Range Comments IM GRANULOCYTES % (test code=IM GRANULOCYTES %) 0.7 0.0-1.0 Neutrophils # (Auto)2018-08-06 14:49:00* Test Item Value Reference Range Comments Neutrophils # (Auto) (test remd=692-4) 6.6 2.1-6.9 Lymphocytes # (Auto)2018-08-06 14:49:00* Test Item Value Reference Range Comments Lymphocytes # (Auto) (test gins=13219-2) 2.5 1.0-3.2 Monocytes # (Auto)2018-08-06 14:49:00* Test Item Value Reference Range Comments Monocytes # (Auto) (test virn=691-6) 0.6 0.2-0.8 Eosinophils # (Auto)2018-08-06 14:49:00* Test Item Value Reference Range Comments Eosinophils # (Auto) (test mntw=003-4) 0.0 0.0-0.4 Basophils # (Auto)2018-08-06 14:49:00* Test Item Value Reference Range Comments Basophils # (Auto) (test hypl=588-5) 0.0 0.0-0.1 Absolute Immature Granulocyte (diny3620-20-46 14:49:00* Test Item Value Reference Range Comments Absolute Immature Granulocyte (auto (test code=Absolute Immature Granulocyte (auto) 0.07 0-0.1 MRI SPINE LUMBAR DV5258-71-73 07:30:00 [place] [address] Patient Name: TALA ROMO MR #: [id number] : 1940 Age/Sex: 77/F Req #: [id number] Adm Physician: Ordered by: KAM ARRINGTON MD Report #: [id number] Location: MRI Room/Bed: Procedure: [id number] MRI/MRI SPINE LUMBAR WO Exam Date: 05/02/18 Exam Time: 1650 REPORT STATUS: Signed MRI SPINE LUMBAR WO HISTORY: Sciatica, left hip pain COMPARISON: No ne. TECHNIQUE: Sagittal T1, sagittal T2, sagittal STIR, axial T2, coronal T2, and axial proton density weighted images of the lumbar spine were obtained without contrast. DISCUSSION: There are 5 nonrib-bearing lumbar ve rtebral bodies. 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 There may be rudimentary ribs at T12. The vertebral bodies are n umbered accordingly. Alignment: Slight straightening of the lumbar lordosis . Thoracolumbar levoscoliosis is centered at L1-L2. Vertebrae: No definite e vidence for fracture or neoplasm. Conus medullaris: Normal, ends at L1. Caud a equina: There is mild cauda equina crowding at L3-L4. No masses or arachnoi ditis. Posterior paraspinal muscles: There is bilateral paraspinal muscle atro phy at the lumbosacral junction. Soft tissues: No signal abnormalities. Multilevel disc degeneration is advanced at L1-L2, L3-L4, and L4-L5. There are nonspecific minimal multilevel inflammatory endplate changes. T12-L1: Pat ent canal and foramina. L1-L2: Mild canal stenosis due to disc bulge and li gamentum flavum thickening. Moderate right foraminal stenosis due to disc bulg e and facet arthrosis. No significant left foraminal stenosis. L2-L3: Mil d canal stenosis due to disc bulge and ligamentum flavum thickening. Mild to m oderate right and mild left foraminal stenoses due to disc bulge and facet art hrosis. Small bilateral facet effusions are present, right greater than left. L3-L4: There is mild left lateral listhesis of L3 on L4. Moderate canal s tenosis due to disc bulge and ligamentum flavum thickening. Both lateral reces ses are effaced. Moderate to severe right and moderate left foraminal stenoses due to disc bulge and facet arthrosis. There is impingement of the exiting ri ght L3 nerve root. Small bilateral facet effusions are present. L4-L5: Mode rate canal stenosis due to disc bulge and ligamentum flavum thickening. Both l ateral recesses are slightly effaced. Severe left foraminal stenosis due to di sc bulge and facet arthrosis. There is impingement of the exiting left L4 nerv e root. No significant right foraminal stenosis. Small bilateral facet effusio ns are present. L5-S1: Patent canal and foramina. IMPRESSION: 1. Mu ltilevel disc degeneration, advanced at L1-L2, L3-L4, and L4-L5, with nonspeci fic minimal multilevel inflammatory endplate changes. Associated thoracolumbar levoscoliosis centered at L1-L2. 2. Multilevel degenerative canal stenoses - moderate at L3-L4 and L4-L5. 3. Multilevel bilateral degenerative foraminal stenoses - moderate to severe on the right at L3-L4 and severe on the left at L4-L5. Signed by: Dr. Dennis Resendiz M.D. on 05/03/2018 7:44 AM Dict ated By: DENNIS RESENDIZ MD 3 COPY TO: KAM ARRINGTON MD 25-Hydroxy Vitamin D Faqnw5222-20-51 06:30:00* Test Item Value Reference Range Comments 25-Hydroxy Vitamin D Total (test jprs=50052-1) 15 . Reference Range:All Ages: Target levels 30 - [address]5839-[place] Vitamin Y98426-91-19 06:30:00* Test Item Value Reference Range Comments 25-Hydroxy Vitamin D3 (test yblc=13857-3) 15 . Performed at: [facility] [address] [place] [address] [id number] Director: Go Gold MD, Phone: [phone]-Gacrcax Vitamin T22430-37-18 06:30:00* Test Item Value Reference Range Comments 25-Hydroxy Vitamin D2 (test htxy=4680-0) -1.0 . Bedside Izfofso2152-68-20 15:43:00* Test Item Value Reference Range Comments Bedside Glucose (test ztbd=48381-0) 165 70-120 Meter ID: [id number] Iblyk5141-63-13 08:05:00* Test Item Value Reference Range Comments Magnesium Level (test rnje=82276-5) 0.9 1.3-2.1 Results called to TIGIST RODRIGUEZ at 0804 on 06/06/17 by Ramona Ernst. RB OK. Sodium Enlan4948-95-37 07:23:00* Test Item Value Reference Range Comments Sodium Level (test cavz=6584-6) 132 136-145 Potassium Lcjlz2369-46-20 07:23:00* Test Item Value Reference Range Comments Potassium Level (test kwja=2053-4) 3.7 3.5-5.1 Chloride Sjknk6109-43-39 07:23:00* Test Item Value Reference Range Comments Chloride Level (test jpaq=3537-4) 96 98-107 Carbon Dioxide Txhim3188-74-68 07:23:00* Test Item Value Reference Range Comments Carbon Dioxide Level (test qxuh=8541-6) 24 22-29 Anion Lhe9232-22-02 07:23:00* Test Item Value Reference Range Comments Anion Gap (test qvnp=24017-7) 15.7 8-16 Blood Urea Gnztzmzo1607-37-08 07:23:00* Test Item Value Reference Range Comments Blood Urea Nitrogen (test qmfs=6081-0) 15 7-26 Gcdnxlulcx0792-34-14 07:23:00* Test Item Value Reference Range Comments Creatinine (test rpex=0461-1) 0.79 0.57-1.11 BUN/Creatinine Meoej1797-15-45 07:23:00* Test Item Value Reference Range Comments BUN/Creatinine Ratio (test sfqi=1393-8) 19 6-25 Estimat Glomerular Filtration Crka4617-36-46 07:23:00* Test Item Value Reference Range Comments Estimat Glomerular Filtration Rate (test eyse=97291-3) 60- >60 Ranges were taken from the National Kidney Disease Education Program and the [facility] Kid[facility] Foundation literature.Reference ranges:60 or greater: Lshsto28-26 ( for 3 consecutive months): Chronic kidney disease 15 or less: Kidney failure Glucose Hveky6628-77-02 07:23:00* Test Item Value Reference Range Comments Glucose Level (test qmuq=NQS5663) 201 74-118 Calcium Zaguu5248-45-58 07:23:00* Test Item Value Reference Range Comments Calcium Level (test cuhm=71340-1) 8.6 8.4-10.2 Phosphorus Smupq4609-10-46 07:23:00* Test Item Value Reference Range Comments Phosphorus Level (test qnwo=QBN3843) 3.2 2.3-4.7 Total Nptxsqwfi2796-23-11 07:23:00* Test Item Value Reference Range Comments Total Bilirubin (test odyd=4477-4) 1.5 0.2-1.2 Aspartate Amino Transf (AST/SGOT)2017-06-06 07:23:00* Test Item Value Reference Range Comments Aspartate Amino Transf (AST/SGOT) (test code=Aspartate Amino Transf (AST/SGOT)) 36 5-34 Alanine Aminotransferase (ALT/SGPT)2017-06-06 07:23:00* Test Item Value Reference Range Comments Alanine Aminotransferase (ALT/SGPT) (test evzn=5300-1) 27 0-55 Total Xdsevyw3686-26-97 07:23:00* Test Item Value Reference Range Comments Total Protein (test fxet=6589-3) 5.9 6.5-8.1 Gvbxusx5951-10-17 07:23:00* Test Item Value Reference Range Comments Albumin (test ukjc=5797-1) 2.2 3.5-5.0 Xpbxbcno2167-75-14 07:23:00* Test Item Value Reference Range Comments Globulin (test nvcr=77306-9) 3.7 2.3-3.5 Albumin/Globulin Ywjdv3027-18-68 07:23:00* Test Item Value Reference Range Comments Albumin/Globulin Ratio (test igkh=5546-7) 0.6 0.8-2.0 Alkaline Vnnaxwntwdu4467-30-97 07:23:00* Test Item Value Reference Range Comments Alkaline Phosphatase (test nejy=7477-2) 102 40-150 Iooxkvcoky0412-15-45 07:21:00* Test Item Value Reference Range Comments Hemoglobin (test xlbt=70322-4) 9.6 12.0-16.0 Vzcdsmshea7924-36-60 07:21:00* Test Item Value Reference Range Comments Hematocrit (test vekx=6116-5) 27.9 34.2-44.1 Thyroid Stimulating Hormone (TSH)2017-06-03 13:08:00* Test Item Value Reference Range Comments Thyroid Stimulating Hormone (TSH) (test yhuo=23593-7) 5.356 0.350-4.940 Uric Lhwt1814-84-07 12:49:00* Test Item Value Reference Range Comments Uric Acid (test secp=3749-6) 3.9 2.6-8.0 Triglycerides Sdekx7138-73-77 12:49:00* Test Item Value Reference Range Comments Triglycerides Level (test zspm=0741-4) 110 0-149 Cholesterol Gkjox1607-82-46 12:49:00* Test Item Value Reference Range Comments Cholesterol Level (test ivbz=3002-4) 78 0-199 Less than 200 mg/dL Low Encu518 - 239 mg/dL Borderline Tniq741 m g/dl and greater High Risk LDL Zfgguphxpsg3379-42-22 12:49:00* Test Item Value Reference Range Comments LDL Cholesterol (test drev=3209-8) 37 60-130 HDL Kamjabqizxy8568-38-66 12:49:00* Test Item Value Reference Range Comments HDL Cholesterol (test nllp=2991-1) 19 40-60 Cholesterol/HDL Yzwbc5436-88-20 12:49:00* Test Item Value Reference Range Comments Cholesterol/HDL Ratio (test meat=8543-3) 4.1 3.0-3.6 Creatine Kinase KL7881-20-46 08:50:00* Test Item Value Reference Range Comments Creatine Kinase MB (test byxo=14974-6) 1.50 0-5.0 Troponin S6990-68-29 08:50:00* Test Item Value Reference Range Comments Troponin I (test mncy=UNG2175) 0.00 0.0-0.78 Creatine Snnjmz7316-87-95 08:44:00* Test Item Value Reference Range Comments Creatine Kinase (test irga=1361-4) 77 29-168 White Blood Rgxlm9394-23-73 07:44:00* Test Item Value Reference Range Comments White Blood Count (test plco=1964-0) 12.05 4.8-10.8 Red Blood Mwesc2515-16-32 07:44:00* Test Item Value Reference Range Comments Red Blood Count (test ywih=049-9) 3.11 3.6-5.1 Mean Corpuscular Jiwtxb1622-82-43 07:44:00* Test Item Value Reference Range Comments Mean Corpuscular Volume (test afcz=491-4) 85.5 81-99 Mean Corpuscular Rrhwysupne6433-04-86 07:44:00* Test Item Value Reference Range Comments Mean Corpuscular Hemoglobin (test dpyh=457-1) 28.9 28-32 Mean Corpuscular Hemoglobin Hiqonyx4046-00-08 07:44:00* Test Item Value Reference Range Comments Mean Corpuscular Hemoglobin Concent (test ahko=135-7) 33.8 31-35 Red Cell Distribution Tggvj8282-20-83 07:44:00* Test Item Value Reference Range Comments Red Cell Distribution Width (test tsfg=69418-3) 13.8 11.7-14.4 Platelet Voxmy1274-33-23 07:44:00* Test Item Value Reference Range Comments Platelet Count (test yabd=499-4) 307 140-360 Neutrophils (%) (Auto)2017-06-01 07:44:00* Test Item Value Reference Range Comments Neutrophils (%) (Auto) (test vbzi=92234-9) 84.6 38.7-80.0 Lymphocytes (%) (Auto)2017-06-01 07:44:00* Test Item Value Reference Range Comments Lymphocytes (%) (Auto) (test gyxz=891-3) 6.6 18.0-39.1 Monocytes (%) (Auto)2017-06-01 07:44:00* Test Item Value Reference Range Comments Monocytes (%) (Auto) (test indl=5157-6) 8.0 4.4-11.3 Eosinophils (%) (Auto)2017-06-01 07:44:00* Test Item Value Reference Range Comments Eosinophils (%) (Auto) (test wpjl=036-0) 0.0 0.0-6.0 Basophils (%) (Auto)2017-06-01 07:44:00* Test Item Value Reference Range Comments Basophils (%) (Auto) (test fvlx=318-2) 0.1 0.0-1.0 IM GRANULOCYTES %2017-06-01 07:44:00* Test Item Value Reference Range Comments IM GRANULOCYTES % (test code=IM GRANULOCYTES %) 0.7 0.0-1.0 Neutrophils # (Auto)2017-06-01 07:44:00* Test Item Value Reference Range Comments Neutrophils # (Auto) (test hhwz=563-5) 10.2 2.1-6.9 Lymphocytes # (Auto)2017-06-01 07:44:00* Test Item Value Reference Range Comments Lymphocytes # (Auto) (test uzvq=49959-0) 0.8 1.0-3.2 Monocytes # (Auto)2017-06-01 07:44:00* Test Item Value Reference Range Comments Monocytes # (Auto) (test lgtr=181-0) 1.0 0.2-0.8 Eosinophils # (Auto)2017-06-01 07:44:00* Test Item Value Reference Range Comments Eosinophils # (Auto) (test sdds=273-8) 0.0 0.0-0.4 Basophils # (Auto)2017-06-01 07:44:00* Test Item Value Reference Range Comments Basophils # (Auto) (test ascv=667-5) 0.0 0.0-0.1 Absolute Immature Granulocyte (dnkv3995-46-74 07:44:00* Test Item Value Reference Range Comments Absolute Immature Granulocyte (auto (test code=Absolute Immature Granulocyte (auto) 0.09 0-0.1 Urine PVT0455-61-94 15:50:00* Test Item Value Reference Range Comments Urine WBC (test plrs=4032-4) NONE 0-5 Urine ZYD5953-95-74 15:50:00* Test Item Value Reference Range Comments Urine RBC (test sjgh=66181-0) NONE 0-5 Urine Ywvfqleu9826-71-31 15:50:00* Test Item Value Reference Range Comments Urine Bacteria (test fgqw=54440-2) NONE NONE Urine Epithelial Qpqbb0034-15-18 15:50:00* Test Item Value Reference Range Comments Urine Epithelial Cells (test mfxm=22354-7) NONE NONE Urine Jlscy9076-33-16 15:20:00* Test Item Value Reference Range Comments Urine Color (test gxgm=0088-4) YELLOW YELLOW Urine Uebsumr2408-74-37 15:20:00* Test Item Value Reference Range Comments Urine Clarity (test lkvf=42119-0) SL CLOUDY CLEAR Urine Specific Ixylysj5708-73-05 15:20:00* Test Item Value Reference Range Comments Urine Specific [place] (test xiho=8388-3) 1.015 1.010-1.025 Urine aX5333-71-36 15:20:00* Test Item Value Reference Range Comments Urine pH (test okvx=37771-7) 5 5-7 Urine Leukocyte Wooebbdr6166-55-29 15:20:00* Test Item Value Reference Range Comments Urine Leukocyte Esterase (test sotu=2148-3) NEGATIVE NEGATIVE Urine Ttwubks0526-57-77 15:20:00* Test Item Value Reference Range Comments Urine Nitrite (test elyv=71086-1) NEGATIVE NEGATIVE Urine Bqggufs6105-71-22 15:20:00* Test Item Value Reference Range Comments Urine Protein (test gmbq=5101-5) TRACE NEGATIVE Urine Glucose (UA)2017-05-31 15:20:00* Test Item Value Reference Range Comments Urine Glucose (UA) (test drpm=9179-5) 3+ NEGATIVE Urine Egnscno8568-53-06 15:20:00* Test Item Value Reference Range Comments Urine Ketones (test tugy=84295-8) NEGATIVE NEGATIVE Urine Glsshnppfiyp4671-36-08 15:20:00* Test Item Value Reference Range Comments Urine Urobilinogen (test xrpj=79632-7) 0.2 0.2-1 Urine Ldvogkpwt0173-43-70 15:20:00* Test Item Value Reference Range Comments Urine Bilirubin (test grhj=8170-4) NEGATIVE NEGATIVE Urine Yjhzt4876-79-76 15:20:00* Test Item Value Reference Range Comments Urine Blood (test hfvt=03758-3) 2+ NEGATIVE Urine Uavny6552-51-86 21:07:00* Test Item Value Reference Range Comments Urine Mucus (test dsom=8863-8) FEW RARE Prothrombin Gqeo1783-04-99 20:27:00* Test Item Value Reference Range Comments Prothrombin Time (test pvwb=3084-2) 13.5 11.9-14.5 Prothromb Time International Wfrft5448-95-44 20:27:00* Test Item Value Reference Range Comments Prothromb Time International Ratio (test epyz=3036-0) 1.11 Oral Anticoagulant Therapy INR Values:1. Low Intensity Therapy 1.5 - 2.02 . Moderate Intensity Therapy 2.0 - 3.03. High Intensity Therapy(1) 2.5 - 3. 54. High Intensity Therapy(2) 3.0 - 4.05. Panic Value INR > 5.0 Activated Partial Thromboplast Iqdr0339-74-63 20:27:00* Test Item Value Reference Range Comments Activated Partial Thromboplast Time (test tgcf=43479-5) 27.2 23.8-35.[address] [facility] [address] [address] Patient Name: TALA ROMO MR #: [id number] : 1940 Age/Sex: 76/F Req #: [id number] Adm Physician: Ordered by: AUSTIN JACOBSEN MD Report #: [id number] Location: ER Room/Bed: Procedure: [id number] CT/CT HIP LEFT WO Exam Date: 08/09/17 Exam Time: 3 REPORT STAT US: Signed TECHNIQUE: Computed tomography imaging of the LEFT HIP was perfo rmed WITHOUT injected contrast. HISTORY: Pain, evaluate for occult frac ture COMPARISON: None available. FINDINGS: No displaced fracture. 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 Calcification within the left ham string origin. Vascular calcifications. The bladder is distended. IMPRESSION: No displaced left hip fracture. Calcium pyrophospha te deposition within the left hip Signed by: Dr. No Figueroa M.D. on 7:07 AM Dictated By: NO FIGUEROA MD 0707 Transcribed By: EFREM on 08/10/17 070 7 COPY TO: AUSTIN JACOBSEN MD CT HIP LEFT WO [place] [address] Patient Name: TALA ROMO MR #: [id number] : 1940 Age/Sex: 76/F Req #: [id number] Adm Physician: Ordered by: AUSTIN JACOBSEN MD Report #: [id number] Location: ER Room/Bed: Procedure: CT/CT HIP LEFT WO Exam Date: 08/09/17 Exam Time: 2243 REPORT STAT US: Signed TECHNIQUE: Computed tomography imaging of the LEFT HIP was perfo rmed WITHOUT injected contrast. HISTORY: Pain, evaluate for occult frac ture COMPARISON: None available. FINDINGS: No displaced fracture. 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 Calcification within the left ham string origin. Vascular calcifications. The bladder is distended. IMPRESSION: No displaced left hip fracture. Calcium pyrophospha te deposition within the left hip Signed by: Dr. No Figueroa M.D. on 7:07 AM Dictated By: NO FIGUEROA MD Transcribed By: EFREM on 08/10/17 070 7 COPY TO: AUSTIN JACOBSNE MD HIP LEFT 2-3 VW (+/- PELVIS) [place] [address] Patient Name: TALA ROMO MR #: [id number] D OB: 1940 Age/Sex: 76/F Req #: [id number] Adm Physic rodrick: Ordered by: AUSTIN JACOBSEN MD Report #: [id number] Location: E R Room/Bed: Procedure: DX/HIP LEFT 2-3 VW (+/- PELVIS) Exam Date: Exam Time: REPORT ST ATUS: Signed HIP LEFT 2-3 VW (+/- PELVIS) HISTORY: Hip pain. IRAJ RISON: MRI of the pelvis on 05/28/2017 FINDINGS: Bones: No displace d fracture. Postsurgical repair of intertrochanteric fracture with intramedu llary gabriela and interlocking screw on the right hip Osseous alignment is within normal limits. Joints: Mild degenerative change of the symphysis pubis an d left hip joint. Degenerative changes of the lower lumbar spine. Soft ti ssues: The soft tissues appear unremarkable. IMPRESSION: No acute o sseous abnormality. Signed by: Dr. Megn Lay M.D. on 08/09/2017 9:37 PM Dictated By: MENG CARTER MD 36 Transcribed By: EFREM on 08/09/172136 C OPY TO: AUSTIN JACOBSEN MD HIP LEFT 2-3 VW (+/- PELVIS) [place] [address] Patient Name: TALA ROMO MR #: [id number] : 1940 Age/Sex: 76/F Req #: [id number] Adm Physician: Ordered by: AUSTIN JACOBSEN MD Report #: [id number] Location: ER Room/Bed: Procedure: [id number] DX/HIP LEFT 2-3 VW (+/- PELVIS) Exam Date: Exam Time: REPORT ST ATUS: Signed HIP LEFT 2-3 VW (+/- PELVIS) HISTORY: Hip pain. IRAJ RISON: MRI of the pelvis on 05/28/2017 FINDINGS: Bones: No displace d fracture. Postsurgical repair of intertrochanteric fracture with intramedu llary gabriela and interlocking screw on the right hip Osseous alignment is within normal limits. Joints: Mild degenerative change of the symphysis pubis an d left hip joint. Degenerative changes of the lower lumbar spine. Soft ti ssues: The soft tissues appear unremarkable. IMPRESSION: No acute o sseous abnormality. Signed by: Dr. Meng Lay M.D. on 08/09/2017 9:37 PM Dictated By: MENG CARTER MD 36 Transcribed By: EFREM on 08/09/172136 C OPY TO: AUSTIN JACOBSEN MD CHEST SINGLE (PORTABLE) [place] [address] Patient Name: TALA ROMO MR #: [id number] : 1940 Age/Sex: 76/F Req #: [id number] Adm Physician: ROSEANNE MARRERO Ordered by: ELIDA FLORES, ROSEANNE FLORES Report #: [id number] Location: MED/SURG Room/Bed: [facility] Procedure: [id number] DX/CHEST SINGLE (PORTABLE) Exam Date: 06/05/17 Exam Time: 1130 REPORT STATUS: Signed PROCEDU RE: A single AP view of the chest. COMPARISON: [facility], DX, CHEST SINGLE (PORTABLE), 05/28/2017, 20:22. INDICATIONS: WHEEZING FINDINGS: Lines/tubes: None. Lungs: Lungs are well-inflated. Mild bibasilar atelectatic changes. No definite consolidation. Mild perihilar interstitial opacities and peribronchial cuffing Pleura: There is no pleural effusion or pneumothorax. Heart and mediastinum: Cardiac silhouett e is unremarkable. Mild central pulmonary venous congestion Bones: No acute bony abnormality. IMPRESSION: 1. mild perihilar interstitial opacities and peribronchial cuffing and central vascular venous congestion. T his may reflect reactive airway disease versus viral infection. No definite c onsolidation. Hakan Bowie M.D. Dictated by: Hakan rodrigues M.D. on 06/05/2017 at 12:00 Electronically approved by: Hakan mccloud M.D. on 06/05/2017 at 12:00 Dictated By: HAKAN BOWIE MD 1200 Transcribed B y: INFCE on 06/05/17 1200 COPY TO: ROSEANNE MARRERO CHEST SINGLE (PORTABLE) [place] [address] Patient Name: TALA ROMO MR #: [id number] : 1940 Age/Sex: 76/F Req #: [id number] Adm Physician: ROSEANNE MARRERO Ordered by: ELIDA FLORES, ROSEANNE FLORES Report #: [id number] Location: MED/SURG Room/Bed: [facility] Procedure: [id number] DX/CHEST SINGLE (PORTABLE) Exam Date: 06/05/17 Exam Time: 1130 REPORT STATUS: Signed PROCEDU RE: A single AP view of the chest. COMPARISON: [facility], DX, CHEST SINGLE (PORTABLE), 05/28/2017, 20:22. INDICATIONS: WHEEZING FINDINGS: Lines/tubes: None. Lungs: Lungs are well-inflated. Mild bibasilar atelectatic changes. No definite consolidation. Mild perihilar interstitial opacities and peribronchial cuffing Pleura: There is no pleural effusion or pneumothorax. Heart and mediastinum: Cardiac silhouett e is unremarkable. Mild central pulmonary venous congestion Bones: No acute bony abnormality. IMPRESSION: 1. mild perihilar interstitial opacities and peribronchial cuffing and central vascular venous congestion. T his may reflect reactive airway disease versus viral infection. No definite c onsolidation. Hakan Bowie M.D. Dictated by: Hakan rodrigues M.D. on 06/05/2017 at 12:00 Electronically approved by: Hakan mccloud M.D. on 06/05/2017 at 12:00 Dictated By: HAKAN BOWIE MD 1200 Transcribed B y: INFCE on 06/05/17 1200 COPY TO: ROSEANNE MARRERO PELVIS AP 1-2 VIEWS [place] [address] Patient Name: TALA ROMO MR #: [id number] : 1940 Age/Sex: 76/F Req #: [id number] Adm Physician: ROSEANNE MARRERO Ordered by: KAM ARRINGTON MD Report #: [id number] Location: MED/SURG Room/Bed: 106-1 Proce dure: [id number] DX/PELVIS AP 1-2 VIEWS Exam Date: 06/02/17 Exam Time: 1215 REPORT STATUS: Signed HIP RIGHT ONE VW (+/- PELV IS), PELVIS AP 1-2 VIEWS HISTORY: Closed, postop COMPARISON: Hip and pe lvic MRI 05/28/2017 FINDINGS: See impression. IMPRESSION: Pos tsurgical changes related to placement of a right femoral intramedullary gabriela w ithout radiographically apparent complications. Signed by: DR. Harlan rueda MD on 06/02/2017 12:56 PM Dictated By: HARLAN ZIMMERMAN MD 1256 Transcribed By: EFREM on 1256 COPY TO: KAM ARRINGTON MD HIP RIGHT ONE VW (+/- PELVIS) [place] [address] Patient Name: TALA ROMO MR #: [id number] D OB: 1940 Age/Sex: 76/F Req #: [id number] Adm Physic rodrick: ROSEANNE MARRERO Ordered by: KAM ARRINGTON MD Report #: [id number] Location: MED/SURG Room/Bed: [facility] Proce dure: [id number] DX/HIP RIGHT ONE VW (+/- PELVIS) Exam Date: Exam Time: REPORT STATUS: Signed HIP RIGHT ONE VW (+/- PELVIS ), PELVIS AP 1-2 VIEWS HISTORY: Closed, postop COMPARISON: Hip and pelv ic MRI 05/28/2017 FINDINGS: See impression. IMPRESSION: Posts urgical changes related to placement of a right femoral intramedullary gabriela wit hout radiographically apparent complications. Signed by: DR. Harlan Zimmerman MD on 06/02/2017 12:56 PM Dictated By: HARLAN ZIMMERMAN MD Electronically S igned By: HARLAN ZIMMERMAN MD on 06/02/171255 Transcribed By: EFREM on 06/02/171255 COPY TO: KAM ARRINGTON MD PELVIS AP 1-2 VIEWS [place] [address] Patient Name: TALA ROMO MR #: [id number] : 1940 Age/Sex: 76/F Req #: [id number] Adm Physician: ROSEANNE MARRERO Ordered by: KAM ARRINGTON MD Report #: [id number] Location: MED/SURG Room/Bed: [facility] Proce dure: [id number] DX/PELVIS AP 1-2 VIEWS Exam Date: 06/02/17 Exam Time: 1215 REPORT STATUS: Signed HIP RIGHT ONE VW (+/- PELV IS), PELVIS AP 1-2 VIEWS HISTORY: Closed, postop COMPARISON: Hip and pe lvic MRI 05/28/2017 FINDINGS: See impression. IMPRESSION: Pos tsurgical changes related to placement of a right femoral intramedullary gabriela w ithout radiographically apparent complications. Signed by: DR. Harlan rueda MD on 06/02/2017 12:56 PM Dictated By: HARLAN ZIMMERMAN MD 55 Transcribed By: EFREM on 125 COPY TO: KAM ARRINGTON MD HIP RIGHT ONE VW (+/- PELVIS) [place] [address] Patient Name: TALA ROMO MR #: [id number] D OB: 1940 Age/Sex: 76/F Req #: [id number] Adm Physic rodrick: ROSEANNE MARRERO Ordered by: KAM ARRINGTON MD Report #: [id number] Location: MED/SURG Room/Bed: 106-1 Proce dure: [id number] DX/HIP RIGHT ONE VW (+/- PELVIS) Exam Date: Exam Time: REPORT STATUS: Signed HIP RIGHT ONE VW (+/- PELVIS ), PELVIS AP 1-2 VIEWS HISTORY: Closed, postop COMPARISON: Hip and pelv ic MRI 05/28/2017 FINDINGS: See impression. IMPRESSION: Posts urgical changes related to placement of a right femoral intramedullary gabriela wit hout radiographically apparent complications. Signed by: DR. Harlan Zimmerman MD on 06/02/2017 12:56 PM Dictated By: HARLAN ZIMMERMAN MD Electronically S igned By: HARLAN ZIMMERMAN MD on 06/02/17 1256 Transcribed By: EFREM on 06/02/17 1256 COPY TO: KAM ARRINGTON MD [facility] (PORTABLE) [place] [address] Patient Name: TALA ROMO MR #: [id number] : 1940 Age/Sex: 76/F Req #: [id number] Adm Physician: ROSEANNE MARRERO Ordered by: LLUVIA DIEGO NP Report #: [id number] Location: MED/SURG Room/Bed: 106 Proce dure: DX/CHEST SINGLE (PORTABLE) Exam Date: Exam Time: REPORT STATUS: Signed Examination: Single AP view of the chest. COMPARISON: None. INDICATION: Preoperative evaluation DISCUSSION: Lines/tubes: None. Lungs: The lungs are well inflated and clear. No pneumonia or pulmonary edema. Pleura: There is no pleural ef fusion or pneumothorax. Heart and mediastinum: The heart and the mediastin um are unremarkable. Bones and soft tissues: No acute bony abnormalities. IMPRESSION: 1. No acute cardiopulmonary abnormalities. Si gned by: Dr. No Figueroa M.D. on 05/28/2017 8:43 PM Dictated By: RIA FIGUEROA MD 42 Transcribed By: EFREM on 05/28/172042 COPY TO: LLUVIA DIEGO NP CHEST SINGLE (PORTABLE) [place] [address] Patient Name: TALA ROMO MR #: [id number] : 1940 Age/Sex: 76/F Req #: [id number] Adm Physician: Ordered by: LLUVIA DIEGO NP Report #: [id number] Location: ER Room/Bed: Procedure: [id number] DX/CHEST SINGLE (PORTAB LE) Exam Date: Exam Time: REPORT STATUS: Sig suresh Examination: Single AP view of the chest. COMPARISON: None. IND ICATION: Preoperative evaluation DISCUSSION: Lines/tubes: None. Lungs: The lungs are well inflated and clear. No pneumonia or pulmonary ed kristine. Pleura: There is no pleural effusion or pneumothorax. Heart and mediastinum: The heart and the mediastinum are unremarkable. Bones and sof t tissues: No acute bony abnormalities. IMPRESSION: 1. No acu te cardiopulmonary abnormalities. Signed by: Dr. No Figueroa M.D. on 03/2018 8:43 PM Dictated By: NO FIGUEROA MD 42 Transcribed By: EFREM on 05/28/17 COPY TO: LLUVIA DIEGO NP MRI PELVIS WO [place] [address] Patient Name: TALA ROMO MR #: [id number] : 1940 Age/Sex: 76/F Req #: [id number] Adm Physician: ROSEANNE MARRERO Ordered by: LLUVIA DIEGO NP Report #: [id number] Location: MED/SURG Room/Bed: [facility] Proce dure: [id number] MRI/MRI PELVIS WO Exam Date: Exam T rj: REPORT STATUS: Signed TECHNIQUE: Magnetic resonance imaging of the pelvis and right hip was performed WITHOUT injected contrast using standar d departmental protocols. HISTORY: Right hip pain COMPARISON: None. FINDINGS: Bone and bone marrow: Nondisplaced fracture of the intertr ochanteric region of the right femur. No other fracture. Articular cartil age: Partial thickness cartilage loss. Soft tissues: Iliopsoas tendon s intact. Mild proximal branching origin tendinosis. Gluteal tendon insertions are intact. Soft tissue edema adjacent to the right proximal femur. I MPRESSION: Nondisplaced right intertrochanteric femur fracture. Venus d by: Dr. No Figueroa M.D. on 05/28/2017 6:33 PM Dictated By: NO FIGUEROA MD 32 Tra nscribed By: EFREM on 05/28/171832 COPY TO: LLUVIA DIEGO NP MRI HIP RIGHT WO [place] [address] Patient Name: TALA ROMO MR #: [id number] : 1940 Age/Sex: 76/F Req #: [id number] Adm Physician: ROSEANNE MARRERO Ordered by: LLUVIA DIEGO NP Report #: [id number] Location: MED/SURG Room/Bed: [facility] Proce dure: [id number] MRI/MRI HIP RIGHT WO Exam Date: Time: REPORT STATUS: Signed TECHNIQUE: Magnetic resonance imaging of the pelvis and right hip was performed WITHOUT injected contrast using [facility] departmental protocols. HISTORY: Right hip pain COMPARISON: None . FINDINGS: Bone and bone marrow: Nondisplaced fracture of the inte rtrochanteric region of the right femur. No other fracture. Articular car tilage: Partial thickness cartilage loss. Soft tissues: Iliopsoas ten dons intact. Mild proximal branching origin tendinosis. Gluteal tendon inserti ons are intact. Soft tissue edema adjacent to the right proximal femur. IMPRESSION: Nondisplaced right intertrochanteric femur fracture. Si gned by: Dr. No Figueroa M.D. on 05/28/2017 6:33 PM Dictated By: RIA FIGUEROA MD 32 Transcribed By: EFREM on 05/28/171832 COPY TO: LLUVIA DIEGO NP MRI PELVIS WO [place] [address] Patient Name: TALA ROMO MR #: [id number] : 1940 Age/Sex: 76/F Req #: [id number] Adm Physician: Ordered by: LLUVIA DIEGO NP Report #: [id number] Location: ER Room/Bed: Procedure: [id number] MRI/MRI PELVIS WO Exam Date: Exam Time: REPORT STATUS: Signed TE CHNIQUE: Magnetic resonance imaging of the pelvis and right hip was performed WITHOUT injected contrast using standard departmental protocols. HISTORY: Right hip pain COMPARISON: None. FINDINGS: Bone and bone marrow: Nondisplaced fracture of the intertrochanteric region of the right femur. No other fracture. Articular cartilage: Partial thickness cartilage loss. Soft tissues: Iliopsoas tendons intact. Mild proximal branching origin tendinosis. Gluteal tendon insertions are intact. Soft tissue edema adjacent to the right proximal femur. IMPRESSION: Nondisplaced right int ertrochanteric femur fracture. Signed by: Dr. No Figueroa M.D. on 2017 6:33 PM Dictated By: NO FIGUEROA MD 32 Transcribed By: EFREM on 05/28/171832 COPY TO: LLUVIA DIEGO NP MRI HIP RIGHT WO [place] [id number] [place] [address] Patient Name: TALA ROMO MR #: [id number] : 1940 Age/Sex: 76/F Req #: [id number] Adm Physician: Ordered by: LLUVIA DIEGO NP Report #: [id number] Location: ER Room/Bed: Procedure: [id number] MRI/MRI HIP RIGHT WO E xam Date: Exam Time: REPORT STATUS: Signed TECHNIQUE: Magnetic resonance imaging of the pelvis and right hip was perform ed WITHOUT injected contrast using standard departmental protocols. HISTO RY: Right hip pain COMPARISON: None. FINDINGS: Bone and bone marrow : Nondisplaced fracture of the intertrochanteric region of the right femur . No other fracture. Articular cartilage: Partial thickness cartilage loss. Soft tissues: Iliopsoas tendons intact. Mild proximal branching or igin tendinosis. Gluteal tendon insertions are intact. Soft tissue edema adjac ent to the right proximal femur. IMPRESSION: Nondisplaced right intertrochanteric femur fracture. Signed by: Dr. No Figueroa M.D. on 03/2018 6:33 PM Dictated By: NO FIGUEROA MD 32 Transcribed By: EFREM on 05/28/17 COPY TO: LLUVIA DIEGO NP CT BRAIN WO [facility] [address] [place] [address] Patient Name: TALA ROMO MR #: [id number] : 1940 Age/Sex: 76/F Req #: [id number] Adm Physician: ROSEANNE MARRERO Ordered by: LLUVIA DIEGO NP Report #: [id number] Location: MED/SURG Room/Bed: [facility] Proce dure: [id number] CT/CT BRAIN WO Exam Date: Exam Time : REPORT STATUS: Signed EXAMINATION: Head CT HISTORY: Status pos t fall, trauma, pain COMPARISON: Head CT from 01/01/2014 TECHNIQUE: Multidete ctor axial images were obtained without contrast from the foramen magnum to th e vertex . The images were reconstructed using brain and bone algorithms. Thi n section brain images were reformatted into coronal and sagittal planes. Mo tion/streaking artifact limits the evaluation of the skull base and posterior cranial fossa. FINDINGS: Parenchyma: 1. Persistent mild chron ic microvascular ischemic changes. Otherwise no abnormal density in the brain parenchyma. 2. No mass or hemorrhage. No CT evidence of acute territorial vas cular insult. Extra-axial spaces:No abnormal density. No extra- axial fluid collections Brain volume: Normal for age. Ventricles : No hydrocephalus or displacement. Arteries: No density suggestive of thrombus. Dural sinuses: No abnormal density. Extra-axial spaces : No abnormal density. Foramen magnum: No mass, Chiari malformation, or basilar invagination. Sella: No obvious mass. Paranasal/mastoid sinuses: Imaged portions unremarkable. Skull/Scalp: No lytic or blastic lesions. No fractures. IMPRESSION: 1. No acute post traumatic intr acranial abnormalities, particularly no hemorrhage. 2. Unchanged mild ch ronic microvascular ischemic changes. Signed by: Dr. Cynthia Sutherland M.D. on 3:20 PM Dictated By: CYNTHIA SUTHERLAND MD 152 Transcribed By: EFREM on 05/28/17 1520 C OPCrista TO: LLUVIA DIEGO NP HIP RIGHT 2-3 VW (+/- PELVIS) [place] [address] Patient Name: TALA ROMO MR #: [id number] : 1940 Age/Sex: 76/F Req #: [id number] Adm Physician: ROSEANNE MARRERO Ordered by: LLUVIA DIEGO NP Report #: [id number] Location: MED/SURG Room/Bed: [facility] [place] Proce dure: [id number] DX/HIP RIGHT 2-3 VW (+/- PELVIS) Exam Date: Exam Time: REPORT STATUS: Signed PROCEDURE: HIP RIGHT 2-3 VW (+/- PELVIS) COMPARISON: To priors. INDICATIONS: FALL, RIGHT HIP AND LEG PAIN FINDINGS: BONES: No evidence of fracture or disloca tion. Mild degenerative changes are present. The adjacent pubic rami appear i ntact. There is no diastases the pubic symphysis and sacroiliac joints. The l eft hip is intact with mild degenerative changes. There are moderate changes of the lower lumbar spine superimposed on dextroscoliosis. SOFT TISSUES : There are calcifications in the soft tissues and in the vascular structur es. OTHER: Negative. CONCLUSION: No evidence of fracture or dislocation by x-ray. If there is persistent clinical concern, li mited CT of the bony pelvis performed for further characterization. Di ctated by: Kathie Paredes M.D. on 05/28/2017 at 16:27 Electronically ap proved by: Kathie Paredes M.D. on 05/28/2017 at 16:27 Dictat ed By: KATHIE PAREDES MD 26 COPY TO: ANDREAS DIEGO COMIC ARTIST FEMUR TWO VIEW MINIMUM RIGHT [place] [address] Patient Name: TALA ROMO MR #: [id number] : 1940 Age/Sex: 76/F Req #: [id number] Adm Physician: ROSEANNE MARRERO Ordered by: LLUVIA DIEGO COMIC ARTIST Report #: [id number] Location: MED/SURG Room/Bed: [facility] [place] Proce dure: [id number] DX/FEMUR TWO VIEW MINIMUM RIGHT Exam Date: Exam Time: REPORT STATUS: Signed PROCEDURE: FEMUR TWO VIEW M INIMUM RIGHT COMPARISON: Hip x-rays performed at the same time IND ICATIONS: FALL, RIGHT HIP AND LEG PAIN FINDINGS: There are mild deg enerative changes of the right hip. The femur is intact and normally minerali zed without focal osseous lesions. A traction enthesophyte arises from the gr eater trochanter. There are degenerative changes of the knee. Visualize d bones of the pelvis are intact. There calcifications in the soft tissues and in the vascular structures. CONCLUSION: No evidence of fracture or dislocation. Degenerative changes as described above. Di ctated by: Kathie Paredes M.D. on 05/28/2017 at 16:29 Electronically ap proved by: Kathie Paredes M.D. on 05/28/2017 at 16:29 Dictat ed By: KATHIE PAREDES MD 28 COPY TO: ANDREAS DIEGO COMIC ARTIST CT BRAIN WO [place] [id number] [place] [address] Patient Name: TALA ROMO MR #: [id number] : 1940 Age/Sex: 76/F Req #: [id number] Adm Physician: Ordered by: LLUVIA DIEGO NP Report #: [id number] Location: ER Room/Bed: Procedure: [id number] CT/CT BRAIN WO Exam Da te: Exam Time: REPORT STATUS: Signed EXAMI NATION: Head CT HISTORY: Status post fall, trauma, pain COMPARISON: Head CT from 01/01/2014 TECHNIQUE: Multidetector axial images were obtained without contrast from the foramen magnum to the vertex . The images were reconstructed using brain and bone algorithms. Thin section brain images were reformatted into coronal and sagittal planes. Motion/streaking artifact limits the eval uation of the skull base and posterior cranial fossa. FINDINGS: Parenchyma: 1. Persistent mild chronic microvascular ischemic changes. Othe rwise no abnormal density in the brain parenchyma. 2. No mass or hemorrhage . No CT evidence of acute territorial vascular insult. Extra-ax ial spaces:No abnormal density. No extra-axial fluid collections Brain v olume: Normal for age. Ventricles: No hydrocephalus or displacement. Arteries: No density suggestive of thrombus. Dural sinuses: No abn ormal density. Extra-axial spaces: No abnormal density. Foramen magnum: No mass, Chiari malformation, or basilar invagination. Sella: No obvious mass. Paranasal/mastoid sinuses: Imaged portions unremarkable. Skull/Scalp: No lytic or blastic lesions. No fractures. IMPRESSI ON: 1. No acute post traumatic intracranial abnormalities, particularly no hemorrhage. 2. Unchanged mild chronic microvascular ischemic changes. Signed by: Dr. Cynthia Sutherland M.D. on 05/28/2017 3:20 PM Dictated By: JERMAINE SUTHERLAND MD 1520 Transcr ibed By: EFREM on 05/28/17 1520 COPY TO: LLUVIA DIEGO NP HIP RIGHT 2-3 VW (+/- PELVIS) [place] [address] Patient Name: TALA ROMO MR #: [id number] : 1940 Age/Sex: 76/F Req #: [id number] Adm Physician: Ordered by: LLUVIA DIEGO COMIC ARTIST Report #: [id number] Location: ER Room/Bed: Procedure: [id number] DX/HIP RIGHT 2-3 VW (+/ - PELVIS) Exam Date: Exam Time: REPORT STATU S: Signed PROCEDURE: HIP RIGHT 2-3 VW (+/- PELVIS) COMPARISON: To p riors. INDICATIONS: FALL, RIGHT HIP AND LEG PAIN FINDINGS: BERNADETTE QUIN: No evidence of fracture or dislocation. Mild degenerative changes are present. The adjacent pubic rami appear intact. There is no diastases the pub ic symphysis and sacroiliac joints. The left hip is intact with mild degenera tive changes. There are moderate changes of the lower lumbar spine superimpos ed on dextroscoliosis. SOFT TISSUES: There are calcifications in the sof t tissues and in the vascular structures. OTHER: Negative. CONCLUSION: No evidence of fracture or dislocation by x-ray. If th ere is persistent clinical concern, limited CT of the bony pelvis performed f or further characterization. Dictated by: Kathie Paredes M.D. on 03/2018 at 16:27 Electronically approved by: Kathie Paredes M.D. on 03/2018 at 16:27 Dictated By: KATHIE PAREDES MD Electronic ally Signed By: KATHIE PAREDES MD on 05/28/171626 Transcribed By: QIAN on 05/28/171626 COPY TO: LLUVIA DIEGO NP FEMUR TWO VIEW MINIMUM RIGHT [place] [address] Patient Name: TALA ROMO MR #: [id number] : 1940 Age/Sex: 76/F Req #: [id number] Adm Physician: Ordered by: LLUVIA DIEGO NP Report #: [id number] Location: ER Room/Bed: Procedure: [id number] DX/FEMUR TWO VIEW MINIM UM RIGHT Exam Date: Exam Time: REPORT STATUS : Signed PROCEDURE: FEMUR TWO VIEW MINIMUM RIGHT COMPARISON: Hip x- rays performed at the same time INDICATIONS: FALL, RIGHT HIP AND LEG TORSTEN N FINDINGS: There are mild degenerative changes of the right hip. The femur is intact and normally mineralized without focal osseous lesions. A traction enthesophyte arises from the greater trochanter. There are degenera tive changes of the knee. Visualized bones of the pelvis are intact. There calcifications in the soft tissues and in the vascular structures. CONCLUSION: No evidence of fracture or dislocation. Degenerative changes as described above. Dictated by: Kathie Paredes M.D. on 03/2018 at 16:29 Electronically approved by: Kathie Paredes M.D. on 03/2018 at 16:29 Dictated By: KATHIE PAREDES MD Electronic ally Signed By: KATHIE PAREDES MD on 05/28/171628 Transcribed By: QIAN on 05/28/171628 COPY TO: LLUVIA DIEGO NP CT ABDOMEN/PELVIS W [place] [address] Patient Name: TALA ROMO MR #: [id number] D OB: 1940 Age/Sex: 76/F Req #: [id number] Adm Physic rodrick: QUINTON VILLAR MD Ordered by: UNA REYNOSO MD Report #: [id number] Location: [facility] Room/Bed: [facility] Procedure: [id number] CT/CT ABDOMEN/PELVIS W Exam Date: 01/01/14 Ex am Time: 1650 REPORT STATUS: Signed PROCEDURE: CT ABDOMEN AND PELVIS CONTRAST TECHNIQUE: The abdomen and pelvis were scanned utilizing a multidetector helical scanner from the diaphragm to the lesser trochanter aft er the IV administration of 100 cc of Omnipaque 350 and the oral administrati on of Gastrografin. Coronal and sagittal multiplanar reformations were ob tained. COMPARISON: None. INDICATIONS: RUQ PAIN, VOMITING, NAUSEA FINDINGS: LOWER THORAX: Lung bases are clear. Atherosclerotic calcificat ion of the coronary arteries HEPATOBILIARY: No focal hepatic lesions. No b iliary ductal dilatation. Gallbladder is unremarkable, without radiopaque sto quin, wall thickening or pericholecystic fluid. SPLEEN: No splenomegaly. P ANCREAS: No focal masses or ductal dilatation. Fatty replacement, predominant ly in the pancreatic head and uncinate process ADRENALS: No adrenal nodules. KIDNEYS/URETERS: No hydronephrosis, stones, or solid mass lesions. PELVIC ORG ANS/BLADDER: Markedly distended bladder with mild circumferential wall thicke rafy. Uterus is absent. No adnexal masses. PERITONEUM / RETROPERITONEUM: No fr ee air or fluid. LYMPH NODES: No intra-abdominal, retroperitoneal, pelvic or i nguinal adenopathy. VESSELS: Celiac trunk, superior and inferior mesenteric and bilateral renal arteries are patent. Portal, superior mesenteric and spl enic veins are patent. Atherosclerotic calcification of the infrarenal abd ominal aorta and proximal iliac vessels. GI TRACT: Mild wall thickening in the stomach antrum (series 2, image 34). The bowel shows no wall thickening or d ilation. No evidence of obstruction. Appendix is well identified and normal i n caliber. BONES AND SOFT TISSUES: No acute bony abnormalities. Marked dege nerative disc disease predominantly at L2-L3, L4-L5 and L5-S1. Degenerative j oint disease in the form of facet hypertrophy is noted that L4-L5 and L5-S1. No lytic lesions. Soft tissues are unremarkable.. IMPRESSION: 1. mil d wall thickening in the stomach antrum. This may reflect gastritis, in the s etting of abdominal pain and vomiting. Rest of the bowel is unremarkable, wit hout wall thickening, dilation or evidence of obstruction. 2. Markedly dist ended bladder with mild circumferential wall thickening. Correlate for cystit is and bladder outlet obstruction. Hakan Bowie M.D. Dic tated by: Hakan Bowie M.D. on 01/01/2014 at 17:40 Electronically a pproved by: Hakan Bowie M.D. on 01/01/2014 at 17:40 Dic tated By: HAKAN BOWIE MD 1740 COPY TO: UNA REYNOSO MD CT BRAIN WO [place] [address] Patient Name: TALA ROMO MR #: [id number] : 1940 Age/Sex: 76/F Req #: [id number] Adm Physician: QUINTON VILLAR MD Ordered by: UNA REYNOSO MD Report #: [id number] Location: MED/SURG3 Room/Bed: [facility] Procedure: [id number] CT/CT BRAIN WO Exam Date: 01/01/14 Exam Time: 1650 REPORT STATUS: Signed History: Vomiting Comparison studies:None Technique: Axial images were obtained from the skull base to the vertex. Coronal and sagittal images reconstructed from the axial data. Intravenous contrast: None Findings: Scalp: No abnormalities. Bones: No fracture s, blastic or lytic lesions. Extra-axial spaces: No masses. No fluid colle ctions. Brain sulci: Normal Ventricles: Mild compensatory dilatation. No hydrocephalus. Parenchyma: Mild supratentorial white matter hypodensitie s are nonspecific , likely small vessel ischemic changes. No masses, hemorrh age, acute or chronic vascular insults. Sellar/suprasellar region: No abnor malities. Craniocervical junction: Patent foramen magnum. No Chiari one malfor mation. Incidental findings: Atherosclerotic calcifications in the caroti d siphons . Impression: 1. No acute abnormalities. 2. Mild s upratentorial microvascular white matter small vessel ischemic changes. D iscussed with Dr Reynoso on January 01, 2014 at 5:32 pm Dictated By: MAYO HERMOSILLO MD 33 Trans cribed By: EFREM on 01/01/141732 COPY TO: UNA REYNOSO MD CHEST [facility] (PORTABLE) [place] [address] Patient Name: TALA ROMO MR #: [id number] : 1940 Age/Sex: 76/F Req #: [id number] Adm Physician: NARESH PINEDA MD Ordered by: LISA ARCE MD, MD Report #: [id number] Location: ICU Room/Bed: ICU [facility] Procedure: [id number] DX/CHEST SINGLE (PORTABLE) Exam Date: 11/06/13 Exam Time: 1140 REPORT STATUS: Signed PROCEDURE: CHEST SINGLE (POR TABLE) COMPARISON: None. INDICATIONS: CHEST PAIN FINDINGS: SHERIDAN GS: Bibasilar and perihilar airspace opacities is most compatible with pulmon tera edema. PLEURA: No effusions or pneumothorax. HEART MEDIASTI NUM: The heart is enlarged. BONES SOFT TISSUES: No acute findings. CONCLUSION: Bibasilar and perihilar air space opacities most compat ible with pulmonary edema. Dayo Bray D.O. Dictated by: Deirdre Bray D.O. on 11/06/2013 at 12:05 Electronically approved by: Nai Bray D.O. on 11/06/2013 at 12:05 Dictated By: DAYO FITZGERALD DO 1152 Transcribed By: QIAN on 11/06/13 1205 COPY TO: LISA ARCE BA. [place] [address] Patient Name: TALA ROMO MR #: [id number] : 1940 Age/Sex: 76/F Req #: [id number] Adm Physician: Ordered by: LYNSEY GARCIA MD Report #: [id number] Location: DX Room/Bed: Procedure: [id number] DX/MODIFIED BA. SWALLOW Exam Date: 08/04/13 Exam Time: 1406 REPORT STAT US: Signed PROCEDURE: X-RAY MODIFIED BARIUM SWALLOW COMPARISON: Non e. INDICATIONS: DYSPHAGIA, ESOPHAGEAL REFLUX DISCUSSION: Fluoros copic examination was performed in conjunction with speech pathology, during swallowing of a variety of thin and thick liquid consistencies. CONCLUS ION: Flash penetration. No aspiration. Please see the report from speech pathology for complete details. Dictated by: Gm Martinez M.D. on at 14:28 Electronically approved by: Gm Martinez M.D. on 2013 at 14:28 Dictated By: GM MARTINEZ MD 1426 Transcribed By: QIAN on 08/04/13 1424 COPY TO: LYNSEY GARCIA MD
[2019-07-31] MEDS ORDERED: SODIUM CHLORIDE 0.9% 1000ML 1,000 ML IV SCH ×2 (06:00→08:34)
[2019-07-31] MEDS ORDERED: INSULIN REGULAR, HUMAN 100 UNIT/1 ML 3ML VIAL SQ ONE (06:00)
[2019-07-31] MEDS ORDERED: INSULIN REGULAR, HUMAN 100 UNIT/1 ML 3ML VIAL IV ONE (06:00)
[2019-07-31] MEDS ORDERED: SODIUM CHLORIDE 0.9% 1000ML 1,000 ML ONE (06:11)
[2019-07-31] MEDS ORDERED: INSULIN REGULAR, HUMAN 100 UNIT/1 ML 3ML VIAL ONE (06:11)
[2019-07-31 06:18] LABS: BASOPHILS # (AUTO) 0.1 (0.0-0.1); BASOPHILS % 0.6 % (0.0-1.0); EOSINOPHILS # (AUTO) 0.1 (0.0-0.4); EOSINOPHILS % 1.1 % (0.0-6.0); HEMATOCRIT 39.9 % (34.2-44.1); HEMOGLOBIN 12.9 g/dL (12.0-16.0); LYMPHOCYTES # (AUTO) 3.6 (1.0-3.2); LYMPHOCYTES % 43.2 % (18.0-39.1); MEAN CORPUSCULAR HEMOGLOBIN 30.4 pg (28-32); MEAN CORPUSCULAR HGB CONC 32.3 g/dL (31-35); MEAN CORPUSCULAR VOLUME 94.1 fL (81-99); MONOCYTES # (AUTO) 0.8 (0.2-0.8); NEUTROPHILS # (AUTO) 3.8 (2.1-6.9); NEUTROPHILS % 45.5 % (38.7-80.0); PLATELET COUNT 304 x10e3/uL (140-360); RED BLOOD COUNT 4.24 x10e6/uL (3.6-5.1); RED CELL DISTRIBUTION WIDTH 12.9 % (11.7-14.4)
[2019-07-31 06:25] LABS: INR 1.06; PROTHROMBIN TIME 14.5 seconds (11.9-14.5)
[2019-07-31 06:26] LABS: PARTIAL THROMBOPLASTIN TIME 22.3 seconds (23.8-35.5)
--- NOTE | 2019-07-31 06:30 | NUR ---
Patient had seizure x3 since admission in ED lasted 20 mins [address] Mendez at bedside when pt had a tonic-clonic seizure with no post ictal episode. Pt AAOx3 post seizure, no chest pain or SOB.
--- NOTE | 2019-07-31 06:38 | Diagnostic Imaging Report ---
CT BRAIN WO HISTORY: Seizure COMPARISON: None. Technique: Noncontrast axial scans were obtained from skull base to the vertex. Coronal and sagittal reconstructions obtained from the axial data. One or more of the following dose reduction techniques were used: Automated exposure control, adjustment of the mA and/or kV according to patient size, and/or utilization of iterative reconstruction technique. DISCUSSION: Scalp/Skull: Unremarkable. Brain sulci: Mildly prominent. Ventricles: Compensatory dilatation. Extra-axial spaces: No masses or fluid collections. Carotid and vertebral artery calcifications are present. Parenchyma: Mild bilateral deep white matter hypodensity is likely chronic microvascular ischemic change. Otherwise, no masses, hemorrhage, or large vascular territory acute infarct. Dural sinuses: No abnormal densities. Sellar/Suprasellar region: Intact. Skull base: Intact. Incidental findings: Bilateral ocular lens replacement. IMPRESSION: 1. No acute intracranial abnormalities. 2. Mild supratentorial chronic microvascular ischemic change. Mild generalized cerebral volume loss. Signed by: Dr. Dennis Resendiz M.D. on 07/31/2019 6:34 AM
[2019-07-31 06:41] LABS: ALANINE AMINOTRANSFERASE 22 IU/L (0-55); ALBUMIN 3.9 g/dL (3.5-5.0); ALBUMIN/GLOBULIN RATIO 1.2 (0.8-2.0); ALKALINE PHOSPHATASE 130 IU/L (40-150); ANION GAP 23.8 mmol/L (8-16); BLOOD UREA NITROGEN 31 mg/dL (7-26); BUN/CREATININE RATIO 15 (6-25); CARBON DIOXIDE 18 mmol/L (22-29); CHLORIDE 82 mmol/L (98-107); CREATINE KINASE 31 IU/L (29-168); CREATININE, SERUM 2.01 mg/dL (0.57-1.11); EST GLOMERULAR FILTRATION RATE 24 ML/MIN (60-); POTASSIUM 4.8 mmol/L (3.5-5.1)
[2019-07-31 06:45] LABS: GLUCOSE 1295 mg/dL (74-118)
[2019-07-31 06:46] LABS: CALCIUM 10.6 mg/dL (8.4-10.2)
[2019-07-31] MEDS ORDERED: DEXTROSE 5%/0.45% SOD CHL 1,000 ML IV SCH ×2 (06:50→08:34)
--- NOTE | 2019-07-31 06:54 | NUR ---
Handoff report given to FLOR Sanchez.
[2019-07-31] MEDS: SODIUM CHLORIDE 0.9% 1000ML 1,000 ML IV SCH ×5 (06:57→22:50)
[2019-07-31] MEDS ORDERED: POTASSIUM CHLORIDE 20MEQ/100ML 200 ML IV PRN ×2 (07:00→08:45)
[2019-07-31] MEDS ORDERED: INSULIN REGULAR, HUMAN 3ML VL 100 UNIT in SODIUM CHLORIDE 0.9% 99 ML IV SCH ×4 (07:00→08:45)
[2019-07-31] MEDS ORDERED: MAGNESIUM SULF 1GRAM/DEXTROSE 100 ML IV PRN ×2 (07:00→08:45)
--- NOTE | 2019-07-31 07:00 | Diagnostic Imaging Report ---
EXAMINATION: CHEST SINGLE (PORTABLE) INDICATION: New onset seizure COMPARISON: None FINDINGS: TUBES and LINES: None. LUNGS: Normal lung volumes. Mild right perihilar/infrahilar haziness No consolidations. PLEURA: No pleural effusion or pneumothorax. HEART AND MEDIASTINUM: The cardiomediastinal silhouette is within normal size limits. Aortic calcifications.. Calcific coronary artery atherosclerosis. BONES AND SOFT TISSUES: No acute osseous lesion. Soft tissues are unremarkable. Degenerative changes in the spine and shoulders. UPPER ABDOMEN: No free air under the diaphragm. IMPRESSION: Nonspecific right perihilar/infrahilar haziness, possibly due to atelectasis. Calcific coronary artery disease. Signed by: Ariel Mcmahan DO on 07/31/2019 6:56 AM
[2019-07-31 07:01] LABS: CLARITY,URINE CLEAR (CLEAR); COLOR,URINE YELLOW (YELLOW); LEUKOCYTE ESTERASE ,URINE NEGATIVE (NEGATIVE); NITRITE,URINE NEGATIVE (NEGATIVE)
[2019-07-31 07:02] LABS: BILIRUBIN,URINE NEGATIVE (NEGATIVE); KETONES,URINE NEGATIVE (NEGATIVE); PROTEIN,URINE DIPSTICK NEGATIVE (NEGATIVE); URINE UROBILINOGEN 0.2 mg/dL (0.2 - 1)
--- NOTE | 2019-07-31 07:15 | NUR ---
Patient experienced an approximately 30 second tonic clonic seizure at 0712, witnessed by documenting nurse. Patient immediately alert and oriented x3 after the seizure. Bedside fingerstick glucose attempted at 0715. Result was "HIGH". Insulin drip started at 5units per hour and NS infusing at 250ml/hr. Will continue to monitor.
[2019-07-31 07:18] LABS: BACTERIA,URINE RARE /HPF; EPITHELIAL CELLS,URINE RARE /LPF
--- NOTE | 2019-07-31 07:38 | NUR ---
0735 - Patient had another tonic clonic seizure lasting approximately 45 - 60 seconds. No loss of bowel or bladder control. Pure Wik placed for urine control.
--- NOTE | 2019-07-31 08:24 | NUR ---
Bedside fingerstick glucose at [address] Snyder made aware.
[2019-07-31 08:34] LABS: POTASSIUM 2.9 mmol/L (3.6-5.1)
[2019-07-31] MEDS ORDERED: POTASSIUM CHLORIDE 20MEQ/100ML 100 ML INJ PRN (08:45)
[2019-07-31 08:56] LABS: SODIUM 119 mmol/L (136-145)
[2019-07-31] MEDS ORDERED: POTASSIUM CHLORIDE 20MEQ/100ML 100 ML IV PRN (09:00)
--- NOTE | 2019-07-31 09:29 | NUR ---
Bedside glucose at 0920 was 562. Insulin drip protocol ongoing. Patient without seizure activity in almost two hours. Will continue to monitor.
[2019-07-31] MEDS ORDERED: HYDROCODONE/APAP 5MG-325MG TAB PO ONE (09:30)
[2019-07-31 09:39] LABS: CALCIUM 10.5 mg/dL (8.4-10.2); CREATININE, SERUM 1.65 mg/dL (0.57-1.11); MAGNESIUM 1.5 MG/DL (1.3-2.1)
[2019-07-31 09:50] LABS: ANION GAP 23.9 mmol/L (8-16)
--- NOTE | 2019-07-31 10:20 | NUR ---
1020 - Bedside fingerstick glucose obtained with a value of 460. Insulin infusing per protocol at 5u/hr.
[2019-07-31 10:23] LABS: ANION GAP 14.3 mmol/L (8-16); CALCIUM 9.6 mg/dL (8.4-10.2); CREATININE, SERUM 1.18 mg/dL (0.57-1.11); MAGNESIUM 1.3 MG/DL (1.3-2.1); POTASSIUM 3.3 mmol/L (3.5-5.1)
--- NOTE | 2019-07-31 13:28 | Consultation ---
DATE OF CONSULTATION: Pulmonary Critical Care Consultation CHIEF COMPLAINT: Obtundation and abnormal movements. HISTORY OF PRESENT ILLNESS: The patient is a 78-year-old woman. She has a history of diabetes and peripheral neuropathy. She also has a history of retinopathy and hypothyroidism. She has had prior problems with esophageal strictures. She came to the emergency department with obtundation. She had some abnormal movements, which were believed to be seizure-like movements. After arrival in the emergency department, she was found to have an elevated blood sugar and anion gap consistent with diabetic ketoacidosis. She received intravenous fluids as well as an insulin drip. PAST SURGICAL HISTORY: 1. Status post repair of right intertrochanteric fracture on May of 2018. 2. History of an esophageal dilatation. PAST MEDICAL HISTORY: 1. Diabetes. 2. Peripheral neuropathy. 3. Esophagitis distal esophageal strictures. 4. Osteoporosis. SOCIAL HISTORY: The patient is not an active smoker or drinker. FAMILY HISTORY: Family history is noncontributory. ALLERGIES: THERE ARE NO KNOWN DRUG ALLERGIES. REVIEW OF SYSTEMS: The patient did not have fevers. She was more obtunded. She was not having headache or neck pain. There was no chest pain. She did not have difficulty breathing. There was no nausea or vomiting. She did have some abnormal possible seizure-like movements. PHYSICAL EXAMINATION: VITAL SIGNS: The blood pressure is 128/71, saturation is 98% and the pulse is 109. HEENT: Shows no facial swelling or erythema. The nasal mucosa is normal. The oropharynx is normal. LYMPHATIC: Shows no submandibular, cervical, or supraclavicular adenopathy. CARDIAC: Reveals a regular rate and rhythm with normal S1, S2. LUNGS: Auscultation of lungs reveals clear breath sounds bilaterally. There is no wheezing. ABDOMEN: Soft, nontender. There is no rebound or guarding. EXTREMITIES: Show no leg edema or calf tenderness. NEUROLOGICAL: Shows the patient to be awake. She is moving all extremities well. LABORATORY DATA: The sodium is 119, which has improved to 134. BUN to creatinine was 31/2.01 and has improved to 24/1.18. Her potassium is 3.3 and her carbon dioxide has improved from 18-23. Her anion gap is decreased to 14. White blood cell count is 8.4 and hemoglobin is 12.9. The platelet count is 304. RADIOGRAPHIC DATA: Chest x-ray shows some perihilar haziness of unclear etiology. CT scan of the brain shows no acute abnormalities. IMPRESSION: 1. Diabetic ketoacidosis. 2. Obtundation secondary to hyperosmolar state. 3. Acute kidney injury. 4. Anemia secondary to chronic blood loss. 5. Hypokalemia. 6. Hypothyroidism. 7. Diabetes with neuropathy and retinopathy. 8. History of esophageal problems. PLAN: 1. Continue IV hydration. 2. Continue insulin drip according to DKA protocol. 3. Continue to monitor renal status. 4. Continue to monitor neurological status. 5. Continue to monitor neurological function. Pedro Shah MD [facility]/MODL /[id number]
--- NOTE | 2019-07-31 15:00 | NUR ---
CALL PLACED TO PT'S DAUGHTER TO BRING PT'S DENTURES/GLASSES
[2019-07-31 15:29] LABS: ANION GAP 10.4 mmol/L (8-16); BLOOD UREA NITROGEN 17 mg/dL (7-26); BUN/CREATININE RATIO 23 (6-25); CALCIUM 8.8 mg/dL (8.4-10.2); CARBON DIOXIDE 22 mmol/L (22-29); CHLORIDE 108 mmol/L (98-107); CREATININE, SERUM 0.75 mg/dL (0.57-1.11); EST GLOMERULAR FILTRATION RATE > 60 ML/MIN (60-); GLUCOSE 114 mg/dL (74-118); MAGNESIUM 1.6 MG/DL (1.3-2.1); POTASSIUM 3.4 mmol/L (3.5-5.1); SODIUM 137 mmol/L (136-145)
--- NOTE | 2019-07-31 16:00 | NUR ---
DR. MULLER AT BS SPEAKING WITH PT
[2019-07-31] MEDS: HYDROCODONE/APAP 7.5MG-325MG 1 EA TAB PO PRN (16:30)
--- NOTE | 2019-07-31 16:36 | NUR ---
CONSULT CALLED TO DR. LACKEY
[2019-07-31] MEDS ORDERED: SODIUM CHLORIDE 0.45% 1,000 ML IV ONE (16:45)
--- NOTE | 2019-07-31 16:53 | NUR ---
1653: PT SITTING UP IN THE BED EATING DINNER
--- NOTE | 2019-07-31 17:00 | NUR ---
PT'S DAUGHTER BROUGHT PT'S DENTURES AND GLASSES
[2019-07-31] MEDS ORDERED: DEXTROSE 50% SYRINGE 50 ML IV PRN (18:00)
[2019-07-31] MEDS: INSULIN LISPRO 100 UNIT/1 ML 3ML VIAL SQ SCH ×2 (18:00→18:25)
[2019-07-31] MEDS: METOPROLOL TARTRATE 25 MG TAB PO SCH (18:41)
[2019-07-31 18:47] LABS: ANION GAP 7.5 mmol/L (8-16); CALCIUM 8.4 mg/dL (8.4-10.2); CREATININE, SERUM 0.93 mg/dL (0.57-1.11); MAGNESIUM 1.5 MG/DL (1.3-2.1); POTASSIUM 3.5 mmol/L (3.5-5.1)
--- NOTE | 2019-07-31 20:29 | History and Physical ---
CHIEF COMPLAINT: Seizures. HISTORY OF PRESENT ILLNESS: A 78-year-old female patient with history of diabetes mellitus, coronary artery disease, history of myocardial infarction, stent placement, hypertension, chronic radiculopathy, osteoporosis, DJD on pain medication, brought to the emergency room with seizures witnessed in the ER from home. The patient was having uncontrolled diabetes and hyperosmolar state with a blood sugar of more than 800. Her potassium was 2.9. Anion gap of 23.9. The patient admitted for diabetic ketoacidosis, hyperosmolar state, and hypokalemia, pseudohyponatremia. She is more awake now this morning because she denies any fever. She did not miss her pain medication. PAST MEDICAL HISTORY: Hypertension, diabetes mellitus, hypothyroidism, esophageal stricture status post dilatation, hyperlipidemia, osteoporosis, and gastroesophageal reflux disease, coronary artery disease status post stent placement. SOCIAL HISTORY: No history of smoking, alcohol, or drug use. PAST SURGICAL HISTORY: Right hip replacement and cardiac stent placement. MEDICATIONS: 1. Pantoprazole 40 mg daily. 2. Levothyroxine 150 mcg daily. 3. [place] 5/325 one p.o. t.i.d. 4. Plavix 100 mg daily. 5. Atorvastatin 40 mg daily. PHYSICAL EXAMINATION: VITAL SIGNS: Blood pressure 169/87, pulse of 130. HEAD AND ENT: Normal. NECK: No JVD. LUNGS: Clear. CVS: Normal. ABDOMEN: Soft. Bowel sounds normal. EXTREMITIES: Lower extremities, no edema. EEO OFFICER: Awake, alert, and oriented x3. Has mild cognitively impairment. ASSESSMENT: 1. Seizure, secondary to electrolyte abnormality from hyperosmolar state. 2. Diabetes mellitus, poorly controlled due to noncompliance. PLAN: Continue IV fluids and insulin. May transfer to the [facility] when stable. Diomedes Dupont MD [facility]/MODL /[id number]
[2019-07-31] MEDS ORDERED: INSULIN GLARGINE 100 UNITS/ML VIAL SQ SCH (21:00)
[2019-07-31] MEDS: INSULIN GLARGINE 100 UNITS/ML VIAL SQ SCH (21:24)
[2019-07-31] MEDS: TEMAZEPAM 15 MG CAP PO SCH (21:25)
[2019-08-01] VITALS (20 sets, daily range): BP systolic 95–166; BP diastolic 47–92
[2019-08-01] MEDS: HYDROCODONE/APAP 7.5MG-325MG 1 EA TAB PO PRN ×3 (00:34→20:35)
[2019-08-01 01:52] LABS: ANION GAP 9.4 mmol/L (8-16); BLOOD UREA NITROGEN 14 mg/dL (7-26); BUN/CREATININE RATIO 18 (6-25); CALCIUM 8.3 mg/dL (8.4-10.2); CARBON DIOXIDE 21 mmol/L (22-29); CHLORIDE 106 mmol/L (98-107); CREATININE, SERUM 0.78 mg/dL (0.57-1.11); EST GLOMERULAR FILTRATION RATE > 60 ML/MIN (60-); GLUCOSE 159 mg/dL (74-118); MAGNESIUM 1.4 MG/DL (1.3-2.1); POTASSIUM 3.4 mmol/L (3.5-5.1); SODIUM 133 mmol/L (136-145)
[2019-08-01] MEDS: SODIUM CHLORIDE 0.9% 1000ML 1,000 ML IV SCH ×2 (03:00→06:50)
[2019-08-01 04:52] LABS: BASOPHILS # (AUTO) 0.1 (0.0-0.1); BASOPHILS % 0.6 % (0.0-1.0); EOSINOPHILS # (AUTO) 0.2 (0.0-0.4); HEMATOCRIT 31.6 % (34.2-44.1); HEMOGLOBIN 10.9 g/dL (12.0-16.0); LYMPHOCYTES # (AUTO) 3.4 (1.0-3.2); LYMPHOCYTES % 36.4 % (18.0-39.1); MEAN CORPUSCULAR HEMOGLOBIN 29.7 pg (28-32); MEAN CORPUSCULAR HGB CONC 34.5 g/dL (31-35); MONOCYTES # (AUTO) 0.6 (0.2-0.8); MONOCYTES % 6.7 % (4.4-11.3); NEUTROPHILS # (AUTO) 5.1 (2.1-6.9); NEUTROPHILS % 53.8 % (38.7-80.0); PLATELET COUNT 253 x10e3/uL (140-360); RED BLOOD COUNT 3.67 x10e6/uL (3.6-5.1); RED CELL DISTRIBUTION WIDTH 13.2 % (11.7-14.4)
[2019-08-01 04:54] LABS: MEAN CORPUSCULAR VOLUME 86.1 fL (81-99)
[2019-08-01 05:12] LABS: ANION GAP 8.4 mmol/L (8-16); BLOOD UREA NITROGEN 13 mg/dL (7-26); BUN/CREATININE RATIO 17 (6-25); CALCIUM 8.2 mg/dL (8.4-10.2); CARBON DIOXIDE 21 mmol/L (22-29); CHLORIDE 108 mmol/L (98-107); CREATININE, SERUM 0.77 mg/dL (0.57-1.11); EST GLOMERULAR FILTRATION RATE > 60 ML/MIN (60-); GLUCOSE 187 mg/dL (74-118); POTASSIUM 3.4 mmol/L (3.5-5.1); SODIUM 134 mmol/L (136-145)
[2019-08-01] MEDS: LEVOTHYROXINE SODIUM 75 MCG TAB PO SCH (06:30)
[2019-08-01] MEDS: CLOPIDOGREL BISULFATE 75 MG TAB PO SCH (08:03)
[2019-08-01] MEDS: METOPROLOL TARTRATE 25 MG TAB PO SCH ×2 (08:03→18:08)
[2019-08-01] MEDS: ATORVASTATIN 40 MG TAB PO SCH (08:03)
[2019-08-01] MEDS: INSULIN LISPRO 100 UNIT/1 ML 3ML VIAL SQ SCH ×7 (08:04→21:00)
[2019-08-01] MEDS: INSULIN GLARGINE 100 UNITS/ML VIAL SQ SCH ×2 (08:05→21:00)
[2019-08-01] MEDS: PANTOPRAZOLE SOD 40 MG TABEC PO SCH (08:05)
[2019-08-01] MEDS ORDERED: ATORVASTATIN 20 MG TAB PO SCH (09:00)
[2019-08-01] MEDS ORDERED: LEVOTHYROXINE SODIUM 88 MCG TAB PO SCH (09:00)
[2019-08-01 13:46] LABS: FREE T4 (FREE THYROXINE) 1.21 ng/dL (0.8-1.8); THYROID STIMULATING HORMONE 0.963 uIU/mL (0.350-4.940)
[2019-08-01] MEDS: DEXTROSE 5%/0.9% SOD CHL 1,000 ML IV SCH (14:22)
--- NOTE | 2019-08-01 15:03 | Progress Note ---
DATE: SUBJECTIVE: The patient is better. She is eating. She is off the insulin drip. PHYSICAL EXAMINATION: VITAL SIGNS: The blood pressure is 119/63, saturation is 99%. HEENT: Shows no facial swelling or erythema. CARDIAC: Reveals a regular rate and rhythm with a normal S1 and S2. LUNGS: Auscultation of lungs reveals decreased breath sounds at the bases. There is no wheezing. ABDOMEN: Soft and nontender. There is no rebound or guarding. EXTREMITIES: Shows no leg edema or calf tenderness. There is no cyanosis or clubbing. SKIN: Shows no rashes. NEUROLOGICAL: Shows no focal abnormalities. LABORATORY DATA: BUN to creatinine ratio is normal. Other electrolytes are within normal limits. Hemoglobin A1c is 19.2. IMPRESSION: 1. Diabetic ketoacidosis. 2. Peripheral neuropathy. 3. History of esophageal strictures. 4. Acute kidney injury. 5. Anemia. PLAN: 1. Transition to subcu insulin. 2. Continue to monitor renal status. 3. Continue to monitor neurological status. 4. Transfer out of intensive care unit. Pedro Shah MD [facility]/MODL /[id number]
--- NOTE | 2019-08-01 18:28 | Consultation ---
DATE OF CONSULTATION: 07/31/2019 Endocrine Consultation Thank you very much for referring this patient. This is a patient of Dr. Mcclelland. HISTORY OF PRESENT ILLNESS: This is a 78-year-old white female, who was referred to me for evaluation of uncontrolled diabetes mellitus and diabetic ketoacidosis. The patient is a known diabetic for almost 25 years and takes a combination of Lantus 50 units twice a day and Humalog 15 to 20 three times a day. According the patient, she came to the hospital with altered mental status, nausea, and vomiting. She was found in severe diabetic ketoacidosis. Her blood sugar was 1295, anion gap was 23.8, and the sodium was only 119. On direct questioning, the patient states that she has not been taking her insulin. Her hemoglobin A1c was 19.7, which is significantly elevated. The patient has history of coronary artery disease, congestive cardiac failure in the past. She also has history of hypertension and GERD. No history of CVA in the past. Her other routine medications besides insulin include Plavix 75 mg once daily, synthroid 0.15 mg once daily. PHYSICAL EXAMINATION: GENERAL: Today, the patient is alert, awake, and little bit apprehensive. She looks slightly dehydrated. VITAL SIGNS: Her heart rate is around 72, blood pressure is 118/70 mmHg. HEENT: Essentially unremarkable. Thyroid is palpable. Clinically, she looks near euthyroid. CHEST: Bilateral vesicular breathing. She has mild bronchospasm. CARDIAC: First and second heart sounds. There is no third or fourth heart sound. Ejection systolic murmur grade 2/6. 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 CLINICAL IMPRESSION: 1. Diabetes mellitus type 2. 2. Diabetic ketoacidosis. 3. Dehydration. 4. Noncompliance of taking the medications. 5. Coronary artery disease. 6. Altered mental status. 7. Rule out seizures. 8. Hypothyroidism. PLAN: At this time insulin drip has been tapered off. I adjust IV fluids and we also start her on the combination of the Lantus and Humalog insulin. The patient also has been advised to increase her p.o. feedings. Thanks again for referring this patient. I will be following this patient with you. MD KACY Marcum/JEREMIAHL /[id number]
[2019-08-01] MEDS: TEMAZEPAM 15 MG CAP PO SCH (20:35)
[2019-08-02] VITALS (8 sets, daily range): BP systolic 107–158; BP diastolic 58–73
[2019-08-02] MEDS: LEVOTHYROXINE SODIUM 75 MCG TAB PO SCH (06:37)
[2019-08-02] MEDS: INSULIN LISPRO 100 UNIT/1 ML 3ML VIAL SQ SCH ×7 (07:30→21:00)
--- NOTE | 2019-08-02 07:47 | NUR ---
RECEIVED REPORT FROM PRESCHOOL TEACHER'S ASSISTANT NURSE, PATIENT IS SLEEPING IN BED, NO DISTRESS NOTED. BED IS LOW AND LOCKED, SIDE RAILS UPX2, CALL LIGHT WITHIN REACH.
[2019-08-02] MEDS: INSULIN GLARGINE 100 UNITS/ML VIAL SQ SCH ×2 (08:30→21:31)
[2019-08-02] MEDS ORDERED: POTASSIUM CHLORIDE 20 MEQ TAB CR PO NR (09:15)
[2019-08-02] MEDS: ATORVASTATIN 40 MG TAB PO SCH (09:27)
[2019-08-02] MEDS: PANTOPRAZOLE SOD 40 MG TABEC PO SCH (09:27)
[2019-08-02] MEDS: METOPROLOL TARTRATE 25 MG TAB PO SCH ×2 (09:28→18:00)
[2019-08-02] MEDS: CLOPIDOGREL BISULFATE 75 MG TAB PO SCH (09:28)
[2019-08-02] MEDS: DEXTROSE 5%/0.9% SOD CHL 1,000 ML IV SCH ×2 (10:58→17:51)
--- NOTE | 2019-08-02 19:26 | NUR ---
GAVE REPORT TO SENIOR SECURITY ARCHITECT NURSE, PATIENT AWAKE IN BED, A&OX3, NO DISTRESS NOTED. BED LOW AND LOCKED, SIDE RAILS UPX2, CALL LIGHT WITHIN REACH.
[2019-08-02] MEDS: HYDROCODONE/APAP 7.5MG-325MG 1 EA TAB PO PRN (21:31)
[2019-08-02] MEDS: TEMAZEPAM 15 MG CAP PO SCH (23:03)
[2019-08-03] VITALS (8 sets, daily range): BP systolic 101–152; BP diastolic 57–74
[2019-08-03] MEDS: DEXTROSE 5%/0.9% SOD CHL 1,000 ML IV SCH ×3 (00:28→22:27)
[2019-08-03] MEDS: LEVOTHYROXINE SODIUM 75 MCG TAB PO SCH (05:35)
--- NOTE | 2019-08-03 07:00 | NUR ---
RECEIVED PATIENT AWAKE RESTING IN BED NO S/S OF DISTRESS. BED LOW, WHEELS LOCKED, SIDE RAILS X2. CALL LIGHT IN REACH WILL CONTINUE TO MONITOR PATIENT.
[2019-08-03] MEDS: INSULIN LISPRO 100 UNIT/1 ML 3ML VIAL SQ SCH ×7 (07:30→20:53)
[2019-08-03] MEDS: PANTOPRAZOLE SOD 40 MG TABEC PO SCH (08:52)
[2019-08-03] MEDS: ATORVASTATIN 40 MG TAB PO SCH (08:52)
[2019-08-03] MEDS: METOPROLOL TARTRATE 25 MG TAB PO SCH ×2 (08:53→17:00)
[2019-08-03] MEDS: CLOPIDOGREL BISULFATE 75 MG TAB PO SCH (08:53)
[2019-08-03] MEDS: INSULIN GLARGINE 100 UNITS/ML VIAL SQ SCH ×2 (08:55→20:53)
[2019-08-03] MEDS ORDERED: POTASSIUM CHLORIDE 20 MEQ TAB CR PO NR (12:30)
[2019-08-03] MEDS: HYDROCODONE/APAP 7.5MG-325MG 1 EA TAB PO PRN ×2 (12:47→22:30)
[2019-08-03] MEDS: TEMAZEPAM 15 MG CAP PO SCH (20:53)
[2019-08-04] VITALS (8 sets, daily range): BP systolic 112–142; BP diastolic 55–71
[2019-08-04] MEDS: LEVOTHYROXINE SODIUM 75 MCG TAB PO SCH (05:36)
[2019-08-04 06:11] LABS: ANION GAP 10.7 mmol/L (8-16); BLOOD UREA NITROGEN 8 mg/dL (7-26); BUN/CREATININE RATIO 11 (6-25); CALCIUM 8.5 mg/dL (8.4-10.2); CARBON DIOXIDE 23 mmol/L (22-29); CHLORIDE 110 mmol/L (98-107); CREATININE, SERUM 0.74 mg/dL (0.57-1.11); EST GLOMERULAR FILTRATION RATE > 60 ML/MIN (60-); GLUCOSE 115 mg/dL (74-118); POTASSIUM 3.7 mmol/L (3.5-5.1); SODIUM 140 mmol/L (136-145)
[2019-08-04] MEDS: INSULIN LISPRO 100 UNIT/1 ML 3ML VIAL SQ SCH ×7 (07:30→20:25)
[2019-08-04] MEDS: CLOPIDOGREL BISULFATE 75 MG TAB PO SCH (09:12)
[2019-08-04] MEDS: ATORVASTATIN 40 MG TAB PO SCH (09:12)
[2019-08-04] MEDS: PANTOPRAZOLE SOD 40 MG TABEC PO SCH (09:12)
[2019-08-04] MEDS: METOPROLOL TARTRATE 25 MG TAB PO SCH ×2 (09:12→17:28)
[2019-08-04] MEDS: INSULIN GLARGINE 100 UNITS/ML VIAL SQ SCH ×2 (12:04→20:57)
[2019-08-04] MEDS: HYDROCODONE/APAP 7.5MG-325MG 1 EA TAB PO PRN (12:32)
[2019-08-04] MEDS: DEXTROSE 5%/0.9% SOD CHL 1,000 ML IV SCH (12:45)
[2019-08-04] MEDS: TEMAZEPAM 15 MG CAP PO SCH (20:37)
[2019-08-04] MEDS: ACETAMINOPHEN 325 MG TAB PO PRN (20:37)
[2019-08-05] VITALS (8 sets, daily range): BP systolic 105–159; BP diastolic 58–77
[2019-08-05] MEDS: HYDROCODONE/APAP 7.5MG-325MG 1 EA TAB PO PRN (04:11)
[2019-08-05] MEDS: LEVOTHYROXINE SODIUM 75 MCG TAB PO SCH (05:48)
[2019-08-05] MEDS: DEXTROSE 5%/0.9% SOD CHL 1,000 ML IV SCH ×2 (05:48→17:12)
[2019-08-05] MEDS: INSULIN LISPRO 100 UNIT/1 ML 3ML VIAL SQ SCH ×7 (07:30→20:31)
[2019-08-05] MEDS: CLOPIDOGREL BISULFATE 75 MG TAB PO SCH (09:16)
[2019-08-05] MEDS: PANTOPRAZOLE SOD 40 MG TABEC PO SCH (09:17)
[2019-08-05] MEDS: ATORVASTATIN 40 MG TAB PO SCH (09:17)
[2019-08-05] MEDS: METOPROLOL TARTRATE 25 MG TAB PO SCH ×2 (09:17→17:01)
--- NOTE | 2019-08-05 10:31 | Discharge Summary ---
HOSPITAL COURSE: A 78-year-old female patient admitted with a seizure. The patient's blood sugar was uncontrolled. She was hyperosmolar and DKA, also other electrolyte abnormality. The patient was treated with fluids and IV insulin. Her symptoms improved. She has uncontrolled diabetes. Her A1c was more than 15. The patient has been noncompliant. During the hospital course, her sugar is controlled, stable. She will be discharged home. Medication called into pharmacy. DISCHARGE DIAGNOSES: 1. Diabetic ketoacidosis, hyperosmolar state. 2. Seizure secondary to electrolyte abnormality and hyperosmolar state. DISCHARGE MEDICATIONS: Reconciled. Diomedes Dupont MD [facility]/MODL /[id number]
[2019-08-05] MEDS: INSULIN GLARGINE 100 UNITS/ML VIAL SQ SCH ×2 (10:37→21:06)
--- NOTE | 2019-08-05 11:25 | NUR ---
Pt. expressed no spiritual or emotional concerns at this time. Senior [employer] Programmer provided hospitality and information on how to reach bandoleer straightener stamper, if needed. No need to follow at this time. KAITLIN BATES Senior [employer] Programmer Spiritual Care Department O: [phone]
--- NOTE | 2019-08-05 15:15 | NUR ---
call to Dr. Coleman about pt temperature, temp. 102.1, orders to have cxr and consult Dr. Chávez.
--- NOTE | 2019-08-05 15:30 | NUR ---
call to Dr. Chávez, he will see pt.
--- NOTE | 2019-08-05 15:51 | NUR ---
CONSULT [id number]
[2019-08-05] MEDS: CEFTRIAXONE SOD 1 GM/NS 50 ML 50 ML IV SCH (17:01)
--- NOTE | 2019-08-05 17:08 | Diagnostic Imaging Report ---
EXAMINATION: CHEST SINGLE (PORTABLE) INDICATION: ^temperature. ^[id number] ^1620 COMPARISON: 07/31/2019 FINDINGS: AP view TUBES and LINES: None. LUNGS: Lungs are well inflated. No definite focal consolidation. Minimal bibasilar haziness. PLEURA: No pleural effusion or pneumothorax. HEART AND MEDIASTINUM: The cardiomediastinal silhouette is unremarkable. BONES AND SOFT TISSUES: No acute osseous lesion. Soft tissues are unremarkable. UPPER ABDOMEN: No free air under the diaphragm. IMPRESSION: Minimal bibasilar haziness, likely subsegmental atelectasis. However, developing pneumonia cannot be entirely excluded in the appropriate clinical context. Signed by: Dr. Abhinav Gutierrez MD on 08/05/2019 5:05 PM
[2019-08-05] MEDS: ACETAMINOPHEN 325 MG TAB PO PRN (17:12)
--- NOTE | 2019-08-05 19:30 | NUR ---
walking round complete, report given to on coming nurse.
--- NOTE | 2019-08-05 19:32 | NUR ---
Received bedside report from day nurse. Patient awake and resting in bed, no s/s of distress at this time. Bed locked and in low position, alarm on, call light placed within reach. Instructed to call for assistance if needed, verbalized understanding. All safety measures in place. Will continue to monitor.
[2019-08-05 20:30] LABS: BILIRUBIN,URINE NEGATIVE (NEGATIVE); CLARITY,URINE HAZY (CLEAR); COLOR,URINE YELLOW (YELLOW); KETONES,URINE NEGATIVE (NEGATIVE); LEUKOCYTE ESTERASE ,URINE LARGE (NEGATIVE); NITRITE,URINE NEGATIVE (NEGATIVE); PROTEIN,URINE DIPSTICK 1+ (NEGATIVE); URINE UROBILINOGEN 1 mg/dL (0.2 - 1)
[2019-08-05 20:43] LABS: BACTERIA,URINE MODERATE /HPF; WBC,URINE (MAN) >50 /HPF (0-5)
[2019-08-05] MEDS: TEMAZEPAM 15 MG CAP PO SCH (21:06)
--- NOTE | 2019-08-05 21:48 | Consultation ---
DATE OF CONSULTATION: HISTORY OF PRESENT ILLNESS: Ms. Craven is a 78-year-old white female, who originally came on July 31, 2019, to the emergency room with seizure. The patient, who does have history of diabetes mellitus, coronary artery disease, myocardial infarction, status post stent placement, chronic radiculopathy, osteoporosis, disease, comes to the emergency room for seizure. Patient has been here, she was getting better, she was going to be discharged home today. She spiked fever. I was asked to see her. The patient was lying in bed comfortably. She denies any cough, shortness of breath. She says she has been living with her daughter for weeks, no visitors because of the COVID-19. She also tells me that she has been having some urgency, frequency today. PAST MEDICAL HISTORY: Hypertension, diabetes mellitus, hypothyroidism, esophageal strictures, status post dilatation, hyperlipidemia, osteoporosis, gastroesophageal reflux disease, coronary artery disease, status post stent placement. PAST SURGICAL HISTORY: Hip replacement, cardiac stent SOCIAL HISTORY: There is no smoking or drug abuse or alcohol use. HOME MEDICATION: Levothyroxine, [place], Plavix, and atorvastatin. REVIEW OF SYSTEMS: At the present time: HEENT: Negative. PULMONARY: Negative. CARDIAC: Negative. : There is some urgency, frequency, otherwise unremarkable. LABORATORY DATA: White count is 9.4. Hemoglobin 10.9. Sodium of 140, potassium 3.7, her total bilirubin 1.3. PHYSICAL EXAMINATION: GENERAL: She is currently alert, oriented, does not seem to be in acute distress. VITAL SIGNS: Stable, afebrile. HEENT: Normocephalic, not icteric. NECK: Supple. CHEST: Clear. HEART: S1 and S2. ABDOMEN: Soft. Bowel sounds present. EXTREMITIES: No edema. SKIN: No rash. IMPRESSION: Fever, concerned about urinary tract infection. We will get blood cultures, urine cultures. We will her Cipro 1 g a day with a chest x-ray to rule out aspiration pneumonia. Further recommendations to follow. MD MOHINDER Zamarripa/MIKA /[id number]
[2019-08-06] VITALS (7 sets, daily range): BP systolic 117–151; BP diastolic 58–81
[2019-08-06] MEDS: HYDROCODONE/APAP 7.5MG-325MG 1 EA TAB PO PRN ×2 (01:42→21:09)
[2019-08-06 05:53] LABS: BASOPHILS % 0.4 % (0.0-1.0); EOSINOPHILS # (AUTO) 0.2 (0.0-0.4); EOSINOPHILS % 2.3 % (0.0-6.0); HEMATOCRIT 27.9 % (34.2-44.1); HEMOGLOBIN 9.3 g/dL (12.0-16.0); LYMPHOCYTES % 26.2 % (18.0-39.1); MEAN CORPUSCULAR HEMOGLOBIN 30.3 pg (28-32); MEAN CORPUSCULAR HGB CONC 33.3 g/dL (31-35); MEAN CORPUSCULAR VOLUME 90.9 fL (81-99); MONOCYTES % 12.9 % (4.4-11.3); NEUTROPHILS # (AUTO) 4.4 (2.1-6.9); NEUTROPHILS % 57.6 % (38.7-80.0); PLATELET COUNT 283 x10e3/uL (140-360); RED BLOOD COUNT 3.07 x10e6/uL (3.6-5.1); RED CELL DISTRIBUTION WIDTH 13.5 % (11.7-14.4)
[2019-08-06] MEDS: LEVOTHYROXINE SODIUM 75 MCG TAB PO SCH (06:21)
--- NOTE | 2019-08-06 07:00 | NUR ---
RECEIVED PATIENT AWAKE RESTING IN BED NO S/S OF DISTRESS. BED LOW, WHEELS LOCKED, SIDE RAILS X2. CALL LIGHT IN REACH WILL CONTINUE TO MONITOR PATIENT.
--- NOTE | 2019-08-06 07:01 | NUR ---
Bedside report given to day nurse. Patient awake and resting in bed, no s/s of distress at this time. All safety measures in place.
[2019-08-06] MEDS: INSULIN LISPRO 100 UNIT/1 ML 3ML VIAL SQ SCH ×7 (07:30→21:00)
[2019-08-06] MEDS: INSULIN GLARGINE 100 UNITS/ML VIAL SQ SCH ×2 (09:00→21:00)
[2019-08-06] MEDS: DEXTROSE 5%/0.9% SOD CHL 1,000 ML IV SCH ×2 (09:02→21:57)
[2019-08-06] MEDS: ATORVASTATIN 40 MG TAB PO SCH (09:02)
[2019-08-06] MEDS: METOPROLOL TARTRATE 25 MG TAB PO SCH ×2 (09:02→17:16)
[2019-08-06] MEDS: PANTOPRAZOLE SOD 40 MG TABEC PO SCH (09:02)
[2019-08-06] MEDS: CLOPIDOGREL BISULFATE 75 MG TAB PO SCH (09:02)
--- NOTE | 2019-08-06 09:49 | Progress Note ---
DATE: SUBJECTIVE: Ms. Venegas is a pleasant 78-year-old female, who was originally admitted secondary to seizure disorder. The patient was about to be discharged when she spiked a 102 temperature. Infectious Disease was consulted for evaluation for fever. The patient had some complaint of dysuria and urgency at that time. Urine culture was ordered and the patient was placed on IV antibiotics. REVIEW OF SYSTEMS: Currently, no nausea, no vomiting, no fever, no chills, no chest pain, no shortness of breath. She has poor appetite and no new complaints. OBJECTIVE: VITAL SIGNS: Temperature 99.8, pulse is 86, respirations 16, blood pressure 151/69, fever has resolved since yesterday afternoon at 1640. GENERAL: Alert and oriented, in no acute distress. CV: S1 and S2. CHEST: Equal expansion, clear to auscultation. No acute distress. HEENT: Moist. No pallor. No JVD. EXTREMITIES: No edema. Weak. MEDICATIONS: Medication list reviewed. As far as Infectious Disease point of view, the patient is on Rocephin. LABORATORY STUDIES: White blood cells 7.7, hemoglobin 9.3, and platelets 283. No new BMP from today; however, the last estimated GFR was greater than 60, which has improved from 24. MICROBIOLOGY STUDIES: Blood culture and urine culture pending. RADIOLOGY STUDIES: She had a chest x-ray yesterday, which was 08/05/2019, showing minimal bibasilar haziness, likely subsegmental atelectasis; however, developing pneumonia cannot be entirely excluded in the appropriate clinical context. ASSESSMENT AND PLAN: 1. Fever, improved. 2. Concerning urinary tract infection. 3. Concerning pneumonia per chest x-ray. 4. Hypothyroidism. 5. Diabetes. 6. History of coronary artery disease, status post stent placement in the past. 7. Chronic radiculopathy. 8. Osteoporosis. Follow up with the cultures, which are pending so far. Fever resolved. Continue with ceftriaxone. Further management of this patient is based on daily findings on laboratory and physical examination. Discussed with Dr. Chávez in detail. Please refer to chart for more information. Dictated by Nino Schroeder PA-C (Al) Silvia Chávez MD /MODL /[id number]
--- NOTE | 2019-08-06 15:49 | NUR ---
Nutrition Screen Note RD Recommendation for Physician: -Continue 1800 kcal consistent carbohydrate diet -Recommend Glucerna nutrition supplement as needed (if meal intake is <50%) Plan of Care: RD following, monitoring for tolerance and adequacy Nutrition reason for involvement: Length of stay Primary Diagnose(s): HHNC (hyperglycemic hyperosmolar nonketotic coma) PMH: Hypertension, diabetes mellitus, hypothyroidism, esophageal stricture status post dilatation, hyperlipidemia, osteoporosis, and gastroesophageal reflux disease, coronary artery disease status post stent placement. Ht: 58 in Wt:101 lb BMI: 21.1 kg/m2 IBW:[address] Assessment: (08/06/19) Chart reviewed. Labs and meds reviewed. Pt is a 78 year old female admitted with HHNC (hyperglycemic hyperosmolar nonketotic coma). It is noted that pts HgbA1c lab value is 19.2%. Pt reports eating most of her meals. Per meal consumption record in chart pt has varied intake ranging from 0-100% of meals during admission. No weight loss reported and pt mentioned she usually weighs 97 lbs. No N/V/D/C or chewing/swallowing issues. Recommend Glucerna nutrition supplement as needed (if meal intake is <50%) Will continue to monitor. Current Diet: 1800 kcal consistent carbohydrate diet Malnutrition Evaluation (08/06/19) The patient does not meet criteria for a specified degree of malnutrition at this time. Will re-evaluate at follow-up as appropriate. Diet Education Needs Assessment: Diet education indicated, but pt declined Nutrition Care Level: low Signed: Ladonna Calderon, RD, LD
[2019-08-06] MEDS: CEFTRIAXONE SOD 1 GM/NS 50 ML 50 ML IV SCH (17:16)
--- NOTE | 2019-08-06 20:45 | NUR ---
PATIENT IS RESTING IN BED IN STABLE CONDITION, NO SIGNS OF DISTRESS NOTED. IV FLUIDS ARE RUNNING AT ORDERED RATE AND PATIENT VOICES PAIN AT A LEVEL OF 8 AND WILL BE MEDICATED ORDERED. BED IS IN LOWEST POSITION, BOTH SIDE RAILS ARE UP, CALL LIGHT IS WITHIN EASY REACH, WILL CONTINUE TO MONITOR.
[2019-08-06] MEDS: TEMAZEPAM 15 MG CAP PO SCH (20:59)
[2019-08-07] VITALS (8 sets, daily range): BP systolic 107–153; BP diastolic 57–73
[2019-08-07] MEDS: LEVOTHYROXINE SODIUM 75 MCG TAB PO SCH (05:47)
[2019-08-07] MEDS: HYDROCODONE/APAP 7.5MG-325MG 1 EA TAB PO PRN (05:47)
--- NOTE | 2019-08-07 07:00 | NUR ---
RECEIVED PATIENT AWAKE RESTING IN BED NO S/S OF DISTRESS. BED LOW, WHEELS LOCKED, SIDE RAILS X2. CALL LIGHT IN REACH WILL CONTINUE TO MONITOR PATIENT.
[2019-08-07] MEDS: INSULIN LISPRO 100 UNIT/1 ML 3ML VIAL SQ SCH ×7 (07:30→21:00)
[2019-08-07] MEDS: PANTOPRAZOLE SOD 40 MG TABEC PO SCH (08:47)
[2019-08-07] MEDS: METOPROLOL TARTRATE 25 MG TAB PO SCH ×2 (08:47→17:37)
[2019-08-07] MEDS: ATORVASTATIN 40 MG TAB PO SCH (08:47)
[2019-08-07] MEDS: CLOPIDOGREL BISULFATE 75 MG TAB PO SCH (08:47)
[2019-08-07] MEDS: INSULIN GLARGINE 100 UNITS/ML VIAL SQ SCH ×2 (09:00→22:18)
--- NOTE | 2019-08-07 09:29 | Progress Note ---
DATE: SUBJECTIVE: This is a 78-year-old female, very pleasant, admitted with fever, fever has been improving. REVIEW OF SYSTEMS: No nausea, no vomiting, no fever, no chills. No chest pain. No shortness of breath. No headache. No dysuria. No polyuria. PHYSICAL EXAMINATION: VITAL SIGNS: Temperature 98.4, pulse is 80, respirations 16, blood pressure 118/57. I reviewed the temperature and the maximum temperature is 100.1 in the past 24 hours, which was actually last night between 8:00 to 8:45. GENERAL: Alert and oriented, no acute distress. CV: S1 and S2. CHEST: Equal expansion. Decreased breath sounds. No acute distress. ABDOMEN: Soft. Positive bowel sounds. Nontender. HEENT: Moist. No pallor. No JVD. EXTREMITIES: Moves all, weak. No edema. LABORATORY DATA: White count 7.7, hemoglobin 9.3, platelet 283. No new BMP available. Estimated GFR last one is greater than 60. MICROBIOLOGY: Urine culture and blood culture negative. RADIOLOGY: No new radiology, however, chest x-ray on 08/04 shows minimal bibasilar haziness, likely subsegmental atelectasis, may be developing pneumonia cannot be entirely excluded. ASSESSMENT AND PLAN: 1. Fever, improving. 2. Pneumonia, possibly. 3. Possible urinary tract infection. 4. Seizure disorder. 5. Hypothyroidism. 6. Status post diabetic ketoacidosis. 7. Diabetes. 8. Cultures negative so far. Continue with Rocephin. Please refer to chart for further information. Discussed with Dr. Chávez in details. Dictated by Nino Schroeder PA-C (Al) Silvia Chávez MD /MODL /[id number]
[2019-08-07] MEDS: DEXTROSE 5%/0.9% SOD CHL 1,000 ML IV SCH ×2 (11:58→22:31)
--- NOTE | 2019-08-07 15:30 | NUR ---
PATIENT STATES "I FEEL SHAKY." BLOOD SUGAR CHECKED, 48. PATIENT ALERT AND CONSCIOUS. APPLE JUICE GIVEN X2. WILL RECHECK BLOOD SUGAR. CALL LIGHT IN REACH WILL CONTINUE TO MONITOR PATIENT.
--- NOTE | 2019-08-07 16:00 | NUR ---
BLOOD SUGAR 80. PATIENT STATES SHE FEELS BETTER. CALL LIGHT IN REACH WILL CONTINUE TO MONITOR PATIENT.
[2019-08-07] MEDS: CEFTRIAXONE SOD 1 GM/NS 50 ML 50 ML IV SCH (17:37)
[2019-08-08] VITALS (8 sets, daily range): BP systolic 123–162; BP diastolic 62–74
[2019-08-08] MEDS: ACETAMINOPHEN 325 MG TAB PO PRN ×3 (01:30→22:08)
[2019-08-08] MEDS: LEVOTHYROXINE SODIUM 75 MCG TAB PO SCH (05:33)
[2019-08-08] MEDS: INSULIN LISPRO 100 UNIT/1 ML 3ML VIAL SQ SCH ×7 (07:30→22:00)
[2019-08-08] MEDS: PANTOPRAZOLE SOD 40 MG TABEC PO SCH (08:20)
[2019-08-08] MEDS: INSULIN GLARGINE 100 UNITS/ML VIAL SQ SCH ×2 (09:56→22:00)
[2019-08-08] MEDS: METOPROLOL TARTRATE 25 MG TAB PO SCH ×2 (09:57→17:35)
[2019-08-08] MEDS: ATORVASTATIN 40 MG TAB PO SCH (09:57)
--- NOTE | 2019-08-08 09:57 | NUR ---
BEDSIDE SHIFT REPORT RECEIVED PT IN STABLE CONDITION, BO PAIN AT THIS TIME, UPDATED ON POC VOCIED UNDERSTANDING, CALL LIGHT IN REACH WILL CONTINUE TO MONITOR
[2019-08-08] MEDS: CLOPIDOGREL BISULFATE 75 MG TAB PO SCH (09:58)
--- NOTE | 2019-08-08 13:23 | Diagnostic Imaging Report ---
EXAMINATION: CHEST SINGLE (PORTABLE) INDICATION: Pneumonia COMPARISON: Chest radiograph of 08/05/2019 FINDINGS: LINES/TUBES:EKG leads overlie the chest. LUNGS:The lungs are moderately inflated. Perihilar interstitial opacities and bronchial wall thickening. Mild bibasilar patchy opacities. PLEURA:No pleural effusion or pneumothorax. MEDIASTINUM:The cardiomediastinal silhouette appears unchanged in size and shape. BONES/SOFT TISSUES:No acute osseous injury. ABDOMEN:No free air under the diaphragm. IMPRESSION: Perihilar interstitial opacities and bronchial wall thickening could represent atypical pneumonia in the proper clinical setting. Signed by: Katie Aj MD on 08/08/2019 1:20 PM
--- NOTE | 2019-08-08 16:08 | Progress Note ---
DATE: SUBJECTIVE: The patient still reports some coughing. Coughing is more notable after eating. She has no fever. PHYSICAL EXAMINATION: VITAL SIGNS: Blood pressure is 156/68, saturation is 92% on 2 L. HEENT: Shows no facial swelling or erythema. CARDIAC: Reveals regular rate and rhythm with normal S1, S2. LUNGS: Auscultation of lungs reveals rhonchorous breath sounds bilaterally. There is no wheezing. ABDOMEN: Soft, nontender. There is no rebound or guarding. EXTREMITIES: Show no leg edema or calf tenderness. There is no cyanosis or clubbing. IMPRESSION: 1. Aspiration pneumonia. 2. Urinary tract infection. 3. Seizure disorder. 4. Hypothyroidism. 5. Diabetes. PLAN: 1. Continue current antibiotics. 2. Speech therapy evaluation. 3. Repeat chemistries and CBC. Pedro Shah MD [facility]/MODL /[id number]
[2019-08-08] MEDS: DEXTROSE 5%/0.9% SOD CHL 1,000 ML IV SCH (18:32)
[2019-08-09] VITALS (8 sets, daily range): BP systolic 122–167; BP diastolic 58–86
[2019-08-09] MEDS: LEVOTHYROXINE SODIUM 75 MCG TAB PO SCH (06:32)
[2019-08-09] MEDS: INSULIN LISPRO 100 UNIT/1 ML 3ML VIAL SQ SCH ×7 (07:30→20:41)
[2019-08-09] MEDS: INSULIN GLARGINE 100 UNITS/ML VIAL SQ SCH ×2 (09:00→20:41)
[2019-08-09] MEDS: METOPROLOL TARTRATE 25 MG TAB PO SCH ×2 (09:14→16:40)
[2019-08-09] MEDS: CLOPIDOGREL BISULFATE 75 MG TAB PO SCH (09:14)
[2019-08-09] MEDS: PANTOPRAZOLE SOD 40 MG TABEC PO SCH (09:14)
[2019-08-09] MEDS: ATORVASTATIN 40 MG TAB PO SCH (09:14)
[2019-08-09] MEDS: DEXTROSE 5%/0.9% SOD CHL 1,000 ML IV SCH ×2 (09:57→21:27)
--- NOTE | 2019-08-09 12:12 | NUR ---
CC: Fever SUBJECTIVE: This is a 78-year-old female, very pleasant, admitted with fever and pneumonia. REVIEW OF SYSTEMS: No nausea, no vomiting, no fever, no chills. No chest pain. No shortness of breath. No headache. No dysuria. No polyuria. 14 point system reviewed and negative PHYSICAL EXAMINATION: VITAL SIGNS: 98.5, 156/74, 71, 18 GENERAL: Alert in bed, no acute distress CV: S1 and S2. CHEST: Equal expansion. Decreased breath sounds. No acute distress. ABDOMEN: Soft. Positive bowel sounds. Nontender. HEENT: Moist. No pallor. No JVD. EXTREMITIES: Moves all, weak. No edema. LABS: Urine culture and blood culture negative. RADIOLOGY: Perihilar interstitial opacities and bronchial wall thickening could represent atypical pneumonia in the proper clinical setting. ASSESSMENT 1. Fever, improving. 2. Aspiration pneumonia 3. Seizure disorder. 4. Hypothyroidism. 5. Status post diabetic ketoacidosis, T2DM PLAN: 08/08/19: Supportive care, Speech eval and reqs appreciated. 5 days of Azithromycin and Rocephin. Increased risk for aspiration PNA.
[2019-08-09] MEDS: CEFTRIAXONE SOD 1 GM/NS 50 ML 50 ML IV SCH (12:38)
--- NOTE | 2019-08-09 13:58 | NUR ---
bedside swallow eval was done. LATHE TENDER strongly recommends MBS and nectar thickened liquids.
[2019-08-09] MEDS: AZITHROMYCIN 250MG/NS 100 ML 100 ML IV SCH (14:27)
[2019-08-09] MEDS ORDERED: LEVALBUTEROL HCL SOLN NEBU 0.63 MG/3 ML NEB INH ONE (15:00)
[2019-08-09] MEDS ORDERED: METHYLPREDNISOLONE SOD SUCC 40 MG/ML VIAL 1ML IV ONE (15:00)
--- NOTE | 2019-08-09 15:42 | Progress Note ---
DATE: SUBJECTIVE: The patient has increased congestion today. She has some increased cough. Speech therapy evaluated the patient and suspects aspiration based on clinical examination. PHYSICAL EXAMINATION: VITAL SIGNS: The blood pressure is 167/86 and the saturation is 99% on 2 L. The patient is afebrile. LYMPHATIC: Shows no submandibular, cervical, or supraclavicular adenopathy. CARDIAC: Reveals regular rate and rhythm with normal S1 and S2. LUNGS: Auscultation of lungs reveals wheezes in both lung abreu. There is prolonged expiratory phase. ABDOMEN: Soft and nontender. There is no rebound or guarding. EXTREMITIES: Shows no leg edema or calf tenderness. There is no cyanosis or clubbing. SKIN: Shows no rashes. IMPRESSION: 1. Aspiration pneumonia. 2. Urinary tract infection. 3. Diabetes. 4. Hypothyroidism. PLAN: 1. Modified barium swallow. 2. Low-dose Solu-Medrol at 30 mg x1 dose. 3. Bronchodilators. 4. Repeat chemistries and CBC. 5. Discussed intravenous dextrose and insulin with Dr. Ruffin. 6. Repeat CBC, electrolytes, BUN and creatinine tomorrow. Pedro Shah MD [facility]/MODL /[id number]
[2019-08-09] MEDS: ACETAMINOPHEN 325 MG TAB PO PRN (19:58)
--- NOTE | 2019-08-09 22:24 | NUR ---
SPOKE TO DR. VILLAR COVERING FOR DR. MARRERO AT THIS TIME REGARDING PT C/O BACK PAIN. NEW ORDER RECEIVED FOR NORCO 7.5 Q8H PRN.
[2019-08-09] MEDS: HYDROCODONE/APAP 7.5MG-325MG 1 EA TAB PO PRN (22:32)
[2019-08-10] VITALS (8 sets, daily range): BP systolic 122–150; BP diastolic 59–67
[2019-08-10 06:00] LABS: BASOPHILS % 0.4 % (0.0-1.0); EOSINOPHILS % 0.1 % (0.0-6.0); HEMATOCRIT 26.9 % (34.2-44.1); HEMOGLOBIN 8.8 g/dL (12.0-16.0); LYMPHOCYTES # (AUTO) 1.9 (1.0-3.2); LYMPHOCYTES % 27.6 % (18.0-39.1); MEAN CORPUSCULAR HEMOGLOBIN 29.5 pg (28-32); MEAN CORPUSCULAR HGB CONC 32.7 g/dL (31-35); MEAN CORPUSCULAR VOLUME 90.3 fL (81-99); MONOCYTES # (AUTO) 0.6 (0.2-0.8); MONOCYTES % 9.5 % (4.4-11.3); NEUTROPHILS # (AUTO) 4.2 (2.1-6.9); NEUTROPHILS % 61.8 % (38.7-80.0); PLATELET COUNT 314 x10e3/uL (140-360); RED BLOOD COUNT 2.98 x10e6/uL (3.6-5.1)
[2019-08-10] MEDS: LEVOTHYROXINE SODIUM 75 MCG TAB PO SCH (06:00)
[2019-08-10 06:17] LABS: ALANINE AMINOTRANSFERASE 19 IU/L (0-55); ALBUMIN 2.3 g/dL (3.5-5.0); ALBUMIN/GLOBULIN RATIO 0.7 (0.8-2.0); ALKALINE PHOSPHATASE 158 IU/L (40-150); ANION GAP 12.8 mmol/L (8-16); BLOOD UREA NITROGEN 15 mg/dL (7-26); BUN/CREATININE RATIO 18 (6-25); CALCIUM 8.8 mg/dL (8.4-10.2); CARBON DIOXIDE 25 mmol/L (22-29); CHLORIDE 104 mmol/L (98-107); CREATININE, SERUM 0.84 mg/dL (0.57-1.11); EST GLOMERULAR FILTRATION RATE > 60 ML/MIN (60-); GLUCOSE 369 mg/dL (74-118); POTASSIUM 3.8 mmol/L (3.5-5.1); SODIUM 138 mmol/L (136-145)
--- NOTE | 2019-08-10 07:00 | NUR ---
received bedside report. pt is asleep in bed, no s/s of distress. call light within reach and bed safety in place .
[2019-08-10] MEDS: INSULIN LISPRO 100 UNIT/1 ML 3ML VIAL SQ SCH ×7 (07:30→21:00)
[2019-08-10] MEDS: ATORVASTATIN 40 MG TAB PO SCH (08:27)
[2019-08-10] MEDS: CLOPIDOGREL BISULFATE 75 MG TAB PO SCH (08:27)
[2019-08-10] MEDS: INSULIN GLARGINE 100 UNITS/ML VIAL SQ SCH ×2 (08:27→21:37)
[2019-08-10] MEDS: METOPROLOL TARTRATE 25 MG TAB PO SCH ×2 (08:27→16:56)
[2019-08-10] MEDS: PANTOPRAZOLE SOD 40 MG TABEC PO SCH (08:27)
--- NOTE | 2019-08-10 10:35 | NUR ---
INFECTIOUS DISEASE PROGRESS NOTE 08/10/19 CC: Fever SUBJECTIVE: This is a 78-year-old female, very pleasant, admitted with fever and pneumonia. REVIEW OF SYSTEMS: No nausea, no vomiting, no fever, no chills. No chest pain. No shortness of breath. No headache. No dysuria. No polyuria. 14 point system reviewed and negative PHYSICAL EXAMINATION: VITAL SIGNS: 97.4, 145/67, 80, 20 GENERAL: Alert in bed, no acute distress CV: S1 and S2, without s3, s4 CHEST: Equal expansion. Decreased breath sounds. No acute distress. ABDOMEN: Soft. Positive bowel sounds. Nontender. HEENT: Moist. No pallor. No JVD. EXTREMITIES: Moves all, weak. No edema. LABS: Urine culture and blood culture negative. RADIOLOGY: Perihilar interstitial opacities and bronchial wall thickening could represent atypical pneumonia in the proper clinical setting. ASSESSMENT 1. Fever, improving. 2. Aspiration pneumonia 3. Seizure disorder. 4. Hypothyroidism. 5. Status post diabetic ketoacidosis, T2DM PLAN: 08/10/19: Doing well, "feels like there is something stuck in my throat". Speech eval planned for tomorrow morning. Continues on Azithromycin and Rocephin. Remains afebrile. 08/09/19: Supportive care, Speech eval and reqs appreciated. 5 days of Azithromycin and Rocephin. Increased risk for aspiration PNA. DISCUSSED WITH DR. JULIO
--- NOTE | 2019-08-10 11:20 | Progress Note ---
DATE: SUBJECTIVE: The patient is slightly improved with the Solu-Medrol yesterday and bronchodilators. She has no fever. PHYSICAL EXAMINATION: VITAL SIGNS: Stable. Saturation is 99% on 2 L. HEENT: Shows no facial swelling or erythema. CARDIAC: Reveals regular rate and rhythm with normal S1 and S2. LUNGS: Auscultation of lungs reveals rhonchorous breath sounds bilaterally. There is no wheezing. ABDOMEN: Soft and nontender. There is no rebound or guarding. EXTREMITIES: Shows no leg edema or calf tenderness. There is no cyanosis or clubbing. SKIN: Shows no rashes. NEUROLOGICAL: Shows no focal abnormalities. LABORATORY DATA: Blood sugars 362. BUN to creatinine ratio is normal. Other electrolytes within normal limits. Albumin is 2.3. White blood cell count is 6.7 and hemoglobin is 8.8. The platelet count is 314. IMPRESSION: 1. Aspiration pneumonia. 2. Urinary tract infection. 3. Diabetes. 4. Hypothyroidism. PLAN: 1. Continue bronchodilators. 2. Stop D5 and IV fluids, and adjust insulin as needed. 3. Await modified barium swallow tomorrow. Pedro Shah MD [facility]/MODL /[id number]
[2019-08-10] MEDS: CEFTRIAXONE SOD 1 GM/NS 50 ML 50 ML IV SCH (11:46)
[2019-08-10] MEDS: DEXTROSE 5%/0.9% SOD CHL 1,000 ML IV SCH (11:46)
[2019-08-10] MEDS: LEVALBUTEROL HCL SOLN NEBU 0.63 MG/3 ML NEB INH SCH ×2 (12:45→19:20)
[2019-08-10] MEDS: AZITHROMYCIN 250MG/NS 100 ML 100 ML IV SCH (14:00)
--- NOTE | 2019-08-10 19:01 | NUR ---
RECEIVED REPORT FROM [facility] NURSE. AAOX3. RESTING IN BED. L UA 20G INFUSING D5LR. NO SIGNS OF INFILTRATION. BED LOCKED AND IN LOW POSITION. BED ALARM ON. CALL LIGHT WITHIN REACH. Addendum: 08/11/19 at 0233 by Veronique Luque RN PLEASE DISREGARD D5LR. INCLUDE INFUSING D5NS WITH NO ADVERSE SIGNS.
[2019-08-10] MEDS: HYDROCODONE/APAP 7.5MG-325MG 1 EA TAB PO PRN (21:44)
[2019-08-11] VITALS (8 sets, daily range): BP systolic 123–161; BP diastolic 59–89
[2019-08-11] MEDS: LEVALBUTEROL HCL SOLN NEBU 0.63 MG/3 ML NEB INH SCH ×4 (01:15→19:45)
[2019-08-11] MEDS: DEXTROSE 5%/0.9% SOD CHL 1,000 ML IV SCH ×2 (02:03→16:21)
[2019-08-11] MEDS: LEVOTHYROXINE SODIUM 75 MCG TAB PO SCH (05:45)
--- NOTE | 2019-08-11 07:18 | NUR ---
ASSUMED CARE. PATIENT AWAKE AND ALERT. ACYANOTIC. RESTING IN BED. NO DISTRESS NOTED. CALL LIGHT IN REACH. SIDE RAILS UP X2. BED LOW. BED ALARM ARMED.
--- NOTE | 2019-08-11 07:19 | NUR ---
[facility]. RESTING IN BED. AAOX3. L UA INFUSING D5NS. NO SIGNS OF INFILTRATION. SR UOX2. BED ALARM ON. BED LOCKED AND IN LOW POSITION. CALL LIGHT WITHIN REACH.
[2019-08-11] MEDS: INSULIN LISPRO 100 UNIT/1 ML 3ML VIAL SQ SCH ×7 (07:30→20:28)
[2019-08-11] MEDS: ATORVASTATIN 40 MG TAB PO SCH (08:30)
[2019-08-11] MEDS: METOPROLOL TARTRATE 25 MG TAB PO SCH ×2 (08:30→16:24)
[2019-08-11] MEDS: PANTOPRAZOLE SOD 40 MG TABEC PO SCH (08:30)
[2019-08-11] MEDS: CLOPIDOGREL BISULFATE 75 MG TAB PO SCH (08:30)
[2019-08-11] MEDS: HYDROCODONE/APAP 7.5MG-325MG 1 EA TAB PO PRN ×2 (08:30→21:39)
[2019-08-11] MEDS: INSULIN GLARGINE 100 UNITS/ML VIAL SQ SCH ×2 (09:00→20:56)
[2019-08-11] MEDS ORDERED: ASPIRIN 81 MG CHEW TAB PO PRN (09:00)
[2019-08-11] MEDS ORDERED: ASPIRIN 81 MG CHEW TAB PO ONE (09:15)
[2019-08-11 09:54] LABS: CREATINE KINASE 33 IU/L (29-168)
--- NOTE | 2019-08-11 11:17 | Progress Note ---
DATE: SUBJECTIVE: The patient is seen and evaluated, and discussed with Dr. Chávez in details. Available labs and notes reviewed. possibly for today. REVIEW OF SYSTEMS: No nausea. No vomiting. No fever. No chills. PHYSICAL EXAMINATION: VITAL SIGNS: Temperature 98, pulse 97, respiration 18, and blood pressure 161/89. GENERAL: Alert and oriented, not in acute distress. CV: S1 and S2. CHEST: Equal expansion. Clear to auscultation. No acute distress. ABDOMEN: Soft and nontender. No distention. HEENT: Moist. No pallor. No JVD. MICROBIOLOGY: Blood culture and urine culture negative. LABORATORY STUDIES: Sodium 138, potassium 3.8, and creatinine 0.84. White blood cells 6.77, hemoglobin 8.8, and platelet 314. RADIOLOGY: No new radiology studies available. ASSESSMENT AND PLAN: 1. Fever, resolved. 2. Aspiration pneumonia, status post antibiotic. 3. Diabetes. 4. Electrolyte abnormalities. 5. Hypothyroidism. 6. Status post diabetic ketoacidosis. 7. The patient is on Zithromax and Rocephin. Continue to monitor the patient clinically and follow with the labs. 8. Discussed with Dr. Chávez. 9. Please refer to chart for more information. Dictated by Nino Schroeder PA-C (Al) Silvia Chávez MD /MODL /[id number]
[2019-08-11] MEDS: CEFTRIAXONE SOD 1 GM/NS 50 ML 50 ML IV SCH (12:53)
[2019-08-11] MEDS: ACETAMINOPHEN 325 MG TAB PO PRN (12:53)
[2019-08-11] MEDS: AZITHROMYCIN 250MG/NS 100 ML 100 ML IV SCH (13:55)
--- NOTE | 2019-08-11 14:48 | Progress Note ---
DATE: SUBJECTIVE: The patient is still awaiting her modified barium swallow. No fever or cough. PHYSICAL EXAMINATION: VITAL SIGNS: The patient is afebrile. The vital signs are stable. Saturation is 100%. Pulse is 86. HEENT: Shows no facial swelling or erythema. CARDIAC: Reveals regular rate and rhythm with normal S1, S2. LUNGS: Auscultation of lungs reveals rhonchorous breath sounds bilaterally. There is no wheezing. ABDOMEN: Soft, nontender. There is no rebound or guarding. EXTREMITIES: Show no leg edema or calf tenderness. IMPRESSION: 1. Aspiration pneumonia. 2. Diabetes. 3. Hypothyroidism. PLAN: 1. Await modified barium swallow. 2. Continue current antibiotics. 3. Adjust insulin as needed and discussed with Endocrinology. Pedro Shah MD [facility]/MODL /[id number]
--- NOTE | 2019-08-11 16:03 | Discharge Summary ---
ADDENDUM: Discharge was held due to fever. Chest x-ray showed atypical pneumonia. She was treated with azithromycin and ceftriaxone. The patient's symptoms improved. No fever. She is receiving therapy. She will be discharged home today. DISCHARGE DIAGNOSES: 1. Atypical pneumonia. 2. Diabetic ketoacidosis. 3. Seizure from diabetic ketoacidosis. 4. Hypothyroidism. 5. Uncontrolled diabetes. 6. Dementia. Diomedes Dupont MD [facility]/MODL /[id number]
[2019-08-11] MEDS: FAMOTIDINE 20 MG/2 ML VIAL IV SCH (16:23)
[2019-08-11 16:28] LABS: CREATINE KINASE MB 1.9 ng/mL (0-5.0)
--- NOTE | 2019-08-11 19:10 | NUR ---
Bedside report and walking rounds completed with off going nurse. Patient in bed with call light within reach. No issues or concerns noted. Will continue to monitor closely.
[2019-08-12] VITALS (8 sets, daily range): BP systolic 129–174; BP diastolic 61–85
--- NOTE | 2019-08-12 00:24 | Consultation ---
DATE OF CONSULTATION: 08/11/2019 Cardiology Consult Note REASON FOR CONSULT: Chest pain. CHIEF COMPLAINT: Confusion and weakness. HISTORY OF PRESENT ILLNESS: The patient is a 78-year-old female, with known history of coronary artery disease, status post multiple stents and anomalies in the past, who presents with hyperglycemia and altered mental status. Currently feeling better. We were consulted because the patient yesterday complained about some chest pain. Currently, denies any chest pain. Reports some generalized weakness. No orthopnea or PND. PAST MEDICAL HISTORY: History of poorly-controlled diabetes, hypertension, hyperlipidemia, CAD, status post six stents in the past. SOCIAL HISTORY: Does not smoke, drink, or abuse drugs. FAMILY HISTORY: Noncontributory. REVIEW OF SYSTEMS: As per HPI, otherwise negative. OUTPATIENT MEDICATIONS: Reviewed. ALLERGIES: REVIEWED. OBJECTIVE: VITAL SIGNS: Temperature afebrile, pulse 73, respiratory rate 18, blood pressure 138/80, saturating 100% on 2 L cannula. GENERAL: Elderly female, in no acute distress. CARDIOVASCULAR: Regular rate and rhythm. No murmurs, rubs, or gallops. LUNGS: Clear to auscultation bilaterally. ABDOMEN: Soft, nontender, and nondistended. NEURO AND PSYCH: Alert and oriented to person, place, and time. Normal affect. INPATIENT MEDICATIONS: Reviewed. LABORATORY DATA: Reviewed. Troponin negative x2. TELEMETRY: Reviewed, shows normal sinus rhythm. ASSESSMENT: 1. Chest pain, atypical. 2. Coronary artery disease, status post six stents in the past. 3. Hypertension. 4. Hyperlipidemia. 5. Poorly-controlled diabetes. PLAN: Chest pain is atypical, currently resolved. EKG shows no changes. Troponins negative x2. Do not suspect acute coronary syndrome. The patient will follow up with me in the office in 1 to 2 weeks for outpatient stress testing. Thank you for this consult. We will continue to follow. MD ANNALEE Castro/MIKA /[id number]
[2019-08-12] MEDS: DEXTROSE 5%/0.9% SOD CHL 1,000 ML IV SCH ×2 (00:40→21:34)
[2019-08-12] MEDS: LEVALBUTEROL HCL SOLN NEBU 0.63 MG/3 ML NEB INH SCH ×4 (01:10→19:20)
[2019-08-12] MEDS: LEVOTHYROXINE SODIUM 75 MCG TAB PO SCH ×2 (05:17→06:28)
[2019-08-12] MEDS: HYDROCODONE/APAP 7.5MG-325MG 1 EA TAB PO PRN ×2 (06:28→17:30)
[2019-08-12] MEDS: CLOPIDOGREL BISULFATE 75 MG TAB PO SCH (06:42)
--- NOTE | 2019-08-12 07:00 | NUR ---
Bedside report and walking rounds completed with on coming nurse. Patient in bed with call light within reach. No issues or concerns noted.
[2019-08-12] MEDS: INSULIN LISPRO 100 UNIT/1 ML 3ML VIAL SQ SCH ×7 (07:14→21:34)
[2019-08-12] MEDS: INSULIN GLARGINE 100 UNITS/ML VIAL SQ SCH ×2 (08:33→21:34)
[2019-08-12] MEDS: METOPROLOL TARTRATE 25 MG TAB PO SCH ×2 (08:49→16:38)
[2019-08-12] MEDS: ATORVASTATIN 40 MG TAB PO SCH (08:49)
[2019-08-12] MEDS: FAMOTIDINE 20 MG/2 ML VIAL IV SCH ×2 (08:49→16:37)
--- NOTE | 2019-08-12 09:47 | Diagnostic Imaging Report ---
EXAM: MODIFIED BA. SWALLOW DATE: 08/11/2019 2:33 PM INDICATION: Aspiration Fluoroscopy Time: 1.7 min. Reference Air Kerma (Ka, r): 5.53 mGy. FINDINGS/ASPIRATION: Modified barium swallow was performed by the speech pathologist. The radiologist was not present for the examination. Provided images demonstrate laryngeal penetration with at least one episode of trace aspiration. Please refer to speech pathology notes for further details. Signed by: Dr. Luis Andrade MD on 08/12/2019 9:44 AM
--- NOTE | 2019-08-12 10:20 | NUR ---
patient to endo now.
--- NOTE | 2019-08-12 10:31 | Progress Note ---
DATE: SUBJECTIVE: The patient is seen and evaluated. Discussed with Dr. Chávez. Discussed with the nurse. REVIEW OF SYSTEMS: Uneventful night. Remains weak. Comfortable in bed. No nausea. No vomiting. No chest pain. No shortness of breath. No rash. The patient remains with dysphagia. MEDICATIONS: Medication list reviewed as far as Infectious Disease point of view, the patient is on Rocephin and Zithromax, renewed on 08/08. The patient's Rocephin was started on 08/04. MICROBIOLOGY: No new microbiology studies available. RADIOLOGY STUDIES: The patient had a swallow test done on 08/10. PHYSICAL EXAMINATION: VITAL SIGNS: Temperature 97.3, pulse is 89, respirations 20, and blood pressure 165/85, temperature reviewed. The patient had a temperature of 94 this morning at 6 o'clock, however, clinically no acute distress. Continue to monitor. GENERAL: Comfortable in bed, in no acute distress. CVS: S1, S2. CHEST: Equal expansion. Decreased breath sounds. No acute distress. ABDOMEN: Soft and nontender. No distention. HEENT: Moist. No pallor. No JVD. EXTREMITIES: Weak. No significant edema. ASSESSMENT AND PLAN: 1. Dysphagia -- pending EGD today. 2. Fever -- resolved. 3. Aspiration pneumonia. The patient remains on Zithromax and Rocephin. 4. Diabetes. Recent admission for diabetic ketoacidosis. 5. Status post treatment for diabetic ketoacidosis. 6. Hypothyroidism. 7. Debility. 8. Discussed with Dr. Chávez. Please refer to chart for further more information. The patient with a history of esophageal stricture pending EGD today hopefully. Thank you for this dictation. Discussed with Dr. Chávez in details. Dictated by Nino Schroeder PA-C (Al) Silvia Chávez MD /MODL /[id number]
--- NOTE | 2019-08-12 11:42 | Operative Report ---
DATE OF PROCEDURE: 08/10/2019 SURGEON: Fidel Hilario MD PROCEDURE: EGD with esophageal dilatation and biopsies. INDICATIONS FOR PROCEDURE: Dysphagia. MEDICATIONS: The patient was done under MAC, please see anesthesiologist's note. PROCEDURE IN DETAIL: With the patient in left lateral decubitus position, a flexible fiberoptic Olympus gastroscope was introduced into the esophagus under direct visualization without any difficulty. There were some patchy erythema noted in distal esophagus. A mild stricture was noted at the GE junction, that was dilated to size 52-Sami Peace. The scope was then advanced with ease into the stomach traversing a small hiatal hernia. Mucosa overlying the antrum and the body revealed some patchy erythema, [id number]-[id number]-[id number] edema, and biopsies were obtained, sent to stain for H pylori. The pylorus was of normal contour and shape, it was intubated with ease and the scope was advanced all the way to the second portion of the duodenum. The scope was then withdrawn slowly and mucosa overlying the proximal second portion and the duodenal bulb appeared to be within normal limits. The scope was then withdrawn back into the stomach and retroflexed and previously described hiatal hernia. It was also noted in the retroflexed position, the fundus appeared to be within normal limits. The scope was then straightened out, it was subsequently withdrawn. The patient tolerated the procedure well. IMPRESSION: 1. Distal esophagitis. 2. Esophageal stricture at GE junction, dilated to size 52-Sami Peace. 3. Small hiatal hernia. 4. Gastritis, biopsied. Biopsies sent to stain for Helicobacter pylori. PLAN: Follow up histology. Initiate Protonix 40 mg one p.o. q.a.m. before meals. Fidel Hilario MD [facility]/MODL /[id number] cc: Diomedes Dupont MD
--- NOTE | 2019-08-12 12:05 | NUR ---
patient back from endo with stable vitals.
[2019-08-12] MEDS: AZITHROMYCIN 250MG/NS 100 ML 100 ML IV SCH (12:41)
[2019-08-12] MEDS: CEFTRIAXONE SOD 1 GM/NS 50 ML 50 ML IV SCH (12:41)
--- NOTE | 2019-08-12 12:41 | NUR ---
ST Note: Attempted to see pt for dysphagia therapy. Per FLOR Morin, pt just returned from procedure. Pt sleeping, very difficult to awake. Will return later time permitting.
--- NOTE | 2019-08-12 13:10 | NUR ---
patient very lethargic post procedure so no insulin being given due to patients lack of intake. will re-evaluate at supper.
[2019-08-12] MEDS: PANTOPRAZOLE 40 MG 10ML VIAL IV SCH (15:14)
--- NOTE | 2019-08-12 15:32 | Progress Note ---
DATE: SUBJECTIVE: The patient is afebrile. She went for EGD and attempted dilatation of esophageal stricture today. PHYSICAL EXAMINATION: VITAL SIGNS: The patient is afebrile. The blood pressure is 129/65 and the saturation is 93% on 2 L. HEENT: Shows no facial swelling or erythema. CARDIAC: Reveals regular rate and rhythm with normal S1 and S2. LUNGS: Auscultation of lungs reveals clear breath sounds bilaterally. There is no wheezing. ABDOMEN: Soft and nontender. There is no rebound or guarding. EXTREMITIES: Shows no leg edema. IMPRESSION: 1. Recurrent aspiration pneumonia. 2. Gastroesophageal reflux. 3. Diabetes. 4. Hypothyroidism. 5. Abnormal neurological activity with glucose hyperglycemia. PLAN: 1. Complete antibiotics. 2. Continue speech therapy. 3. Evaluate nutritional status. 4. Discussed disposition with Dr. Dupont and case management. MD BC Casas/MIKA /[id number]
[2019-08-12] MEDS ORDERED: PROPOFOL IV EMULSION 10 MG/ML 20 ML VIAL ONE (19:56)
[2019-08-12] MEDS ORDERED: LIDOCAINE HCL 2% LOCAL INJ 5 ML SDV VIAL INJ ONE (19:56)
[2019-08-12] MEDS: ACETAMINOPHEN 325 MG TAB PO PRN (22:56)
[2019-08-13] VITALS (8 sets, daily range): BP systolic 135–172; BP diastolic 66–78
--- NOTE | 2019-08-13 | Progress Note ---
DATE: 08/12/2019 Cardiology Progress Note SUBJECTIVE: She had her EGD today, was very lethargic post EGD. Sedation. No complaints. OBJECTIVE: VITAL SIGNS: Temperature afebrile, pulse 70, respiratory rate 16, blood pressure 132/61, saturating 99% on 2 L nasal cannula. GENERAL: Elderly female, in no acute distress. CARDIOVASCULAR: Regular rate and rhythm. No murmurs, rubs, or gallops. LUNGS: Clear to auscultation anteriorly. Decreased breath sounds at the bases. ABDOMEN: Soft, nontender, nondistended. NEURO AND PSYCH: Alert and oriented to person, place, and time. Normal affect. INPATIENT MEDICATIONS: Reviewed. LABORATORY DATA: Reviewed. Hemoglobin had been 8.8 from 9.3 yesterday. Troponin negative x2 yesterday. IMAGING DATA: Reviewed. Barium swallow demonstrated laryngeal penetration with one episode of tracheal aspiration. ASSESSMENT: 1. Chest pain, atypical, likely from gastroesophageal reflux disease. 2. History of coronary artery disease, status post multiple stents in the past. 3. Hypertension. 4. Hyperlipidemia. 5. Aspiration. 6. Poorly controlled diabetes. PLAN: Doing well post EGD. Continue to monitor on telemetry. Troponins negative x2. I do not suspect acute coronary syndrome at this time. We will continue to monitor from cardiovascular standpoint. Thank you for this consult. We will continue to follow. MD ANNALEE Castro/MIKA /[id number]
[2019-08-13] MEDS: HYDROCODONE/APAP 7.5MG-325MG 1 EA TAB PO PRN ×3 (02:05→23:10)
[2019-08-13] MEDS: LEVALBUTEROL HCL SOLN NEBU 0.63 MG/3 ML NEB INH SCH ×4 (02:30→20:50)
[2019-08-13] MEDS: LEVOTHYROXINE SODIUM 75 MCG TAB PO SCH (05:22)
--- NOTE | 2019-08-13 07:00 | NUR ---
bedside shift report received pt in stable condition, denies pain at this time, updated on poc vocied understanding, call light in reach will continue to monitor
--- NOTE | 2019-08-13 07:05 | NUR ---
Bedside report and walking rounds completed with on coming nurse. Patient in bed and call light within reach. No issues or concerns noted.
[2019-08-13] MEDS: INSULIN LISPRO 100 UNIT/1 ML 3ML VIAL SQ SCH ×7 (07:30→17:00)
[2019-08-13] MEDS: ATORVASTATIN 40 MG TAB PO SCH (09:23)
[2019-08-13] MEDS: METOPROLOL TARTRATE 25 MG TAB PO SCH ×2 (09:24→16:38)
[2019-08-13] MEDS: PANTOPRAZOLE 40 MG 10ML VIAL IV SCH (09:25)
[2019-08-13] MEDS: FAMOTIDINE 20 MG/2 ML VIAL IV SCH ×2 (09:25→16:38)
[2019-08-13] MEDS: INSULIN GLARGINE 100 UNITS/ML VIAL SQ SCH ×2 (09:25→21:00)
--- NOTE | 2019-08-13 09:35 | Progress Note ---
DATE: REVIEW OF SYSTEMS: Wants to go home. No nausea. No vomiting. No fever. No chills. No chest pain. No shortness of breath. No headache. No dysuria. No rash. OBJECTIVE: VITAL SIGNS: Temperature 98.4, pulse is 79, respirations 22, blood pressure 151/76. GENERAL: Alert and oriented, sitting in the edge of the bed, in no acute distress. CV: S1 and S2. CHEST: Equal expansion, clear to auscultation. No acute distress. ABDOMEN: Soft and nontender. No distention. HEENT: Moist. No pallor. No JVD. EXTREMITIES: Moves all. No edema. MEDICATIONS: Medication list reviewed. As far as Infectious Disease point of view, the patient is on Rocephin and Zithromax. LABORATORY STUDIES: No new CBC or BMP. MICROBIOLOGY: No new microbiology studies available. ASSESSMENT AND PLAN: This is a 78-year-old female. 1. Dysphagia-status post EGD, was found to have small hiatal hernia and gastritis. There is no esophagitis and distal esophageal stricture, which was dilated yesterday. 2. Fever, resolved. 3. Aspiration pneumonia-on antibiotics, prescription in chart for Keflex. 4. Diabetes mellitus type 2. 5. Admitted with diabetic ketoacidosis, Endocrinology on the case. 6. Hypothyroidism. 7. Debility. Overall, alert and oriented, in no acute distress. Discharge plan noted. Discussed with Dr. Chávez in detail. Please refer to chart for more information. Dictated by Nino Schroeder PA-C (Al) Silvia Chávez MD /MODL /[id number]
--- NOTE | 2019-08-13 09:50 | NUR ---
pt co chest pain in mid sternum, denies radiation to arms, jaws, back, vs stable 167/76, 78, stat ekg ordered, md notified no new orders at this time.
[2019-08-13] MEDS: CEFTRIAXONE SOD 1 GM/NS 50 ML 50 ML IV SCH (12:15)
[2019-08-13] MEDS: AZITHROMYCIN 250MG/NS 100 ML 100 ML IV SCH (13:34)
[2019-08-13] MEDS ORDERED: METHYLPREDNISOLONE SOD SUCC 40 MG/ML VIAL 1ML IV ONE (14:45)
--- NOTE | 2019-08-13 15:22 | Progress Note ---
DATE: SUBJECTIVE: The patient notes some increased dyspnea and congestion today. She has limited exercise tolerance. She does not have fevers. PHYSICAL EXAMINATION: VITAL SIGNS: The blood pressure is 151/70 and the saturation is 96% on 2 L. Respiratory rate is normal. HEENT: Shows no facial swelling or erythema. CARDIAC: Reveals regular rate and rhythm with normal S1 and S2. LUNGS: Auscultation of lungs reveals rhonchorous breath sounds bilaterally. There is no wheezing. ABDOMEN: Soft and nontender. There is no rebound or guarding. EXTREMITIES: Shows no leg edema or calf tenderness. There is no cyanosis or clubbing. SKIN: Shows no rashes. LABORATORY DATA: White blood cell count is 6.7 and the hemoglobin is 8.8. The platelet count is 314. Blood sugars are 170 to 270. IMPRESSION: 1. Recurrent aspiration pneumonia. 2. Gastroesophageal reflux. 3. Esophageal stricture. 4. Diabetes. 5. Hypothyroidism. PLAN: 1. Solu-Medrol x1 today. 2. Bronchodilators. 3. Continue antibiotics. 4. Protonix and Pepcid. 5. Discussed disposition with Dr. Dupont and case management. Pedro Shah MD LM/MIKA /[id number]
--- NOTE | 2019-08-13 17:32 | NUR ---
Nutrition Screen Note RD Recommendation for Physician: -Continue 1800 kcal consistent carbohydrate diet -Recommend supplement change from Ensure Enlive TID to Glucerna Shake TID in light of elevated BG trend Plan of Care: RD following, monitoring for tolerance and adequacy Nutrition reason for involvement: follow up Primary Diagnose(s): HHNC (hyperglycemic hyperosmolar nonketotic coma) PMH: Hypertension, diabetes mellitus, hypothyroidism, esophageal stricture status post dilatation, hyperlipidemia, osteoporosis, and gastroesophageal reflux disease, coronary artery disease status post stent placement. Ht: 58 in Wt:101 lb BMI: 21.1 kg/m2 IBW:[address] Assessment: 08/12: Follow up. Pt denies poor intake- per chart pt with fluctuating po intake, noted 0-75% of meals per flowsheets. Per chart pt with hiatal hernia and gastritis s/p EGD. No GI distress, Noted pt continues with elevated BG in 200-300s and currently on Ensure and D5NS at 75 ml/hr providing an additional 90 gm dextrose per day. Labs and meds reviewed. Chart reviewed. Will continue to monitor. (08/06/19) Chart reviewed. Labs and meds reviewed. Pt is a 78 year old female admitted with HHNC (hyperglycemic hyperosmolar nonketotic coma). It is noted that pts HgbA1c lab value is 19.2%. Pt reports eating most of her meals. Per meal consumption record in chart pt has varied intake ranging from 0-100% of meals during admission. No weight loss reported and pt mentioned she usually weighs 97 lbs. No N/V/D/C or chewing/swallowing issues. Recommend Glucerna nutrition supplement as needed (if meal intake is <50%) Will continue to monitor. Current Diet: 1800 ADA Malnutrition Evaluation (08/06/19) The patient does not meet criteria for a specified degree of malnutrition at this time. Will re-evaluate at follow-up as appropriate. Diet Education Needs Assessment: Diet education indicated, but pt declined Nutrition Care Level: low Signed: Nidia Salas RD, LD, [facility]
--- NOTE | 2019-08-13 18:21 | NUR ---
down to xray left in stable condition
--- NOTE | 2019-08-13 18:59 | Diagnostic Imaging Report ---
EXAMINATION: CHEST 2 VIEWS INDICATION: Shortness of breath COMPARISON: Multiple prior chest x-ray examinations most recent dated 08/08/2019. FINDINGS: PA and lateral views TUBES and LINES: None. LUNGS/PLEURA: There is perihilar interstitial opacities, consistent with interstitial edema.. Increased bibasilar opacity is compatible with moderate to large pleural effusions with associated atelectasis. HEART AND MEDIASTINUM: The cardiomediastinal silhouette is obscured by adjacent opacity. BONES AND SOFT TISSUES: No acute osseous lesion. Soft tissues are unremarkable. UPPER ABDOMEN: No free air under the diaphragm. IMPRESSION: Moderate to large bilateral pleural effusions with associated atelectasis. Mild pulmonary edema. Signed by: Nino Lowe MD on 08/13/2019 6:56 PM
--- NOTE | 2019-08-13 19:20 | NUR ---
Bedside report completed with morning nurse. Pt alert to name, lying in bed HOB 60 degrees. Pt denies pain at this time. Bed low and locked. Call light within reach.
[2019-08-13] MEDS: ACETAMINOPHEN 325 MG TAB PO PRN (19:45)
[2019-08-13] MEDS: DEXTROSE 5%/0.9% SOD CHL 1,000 ML IV SCH ×2 (21:50→23:15)
[2019-08-14] VITALS (8 sets, daily range): BP systolic 127–168; BP diastolic 67–91
[2019-08-14] MEDS: LEVALBUTEROL HCL SOLN NEBU 0.63 MG/3 ML NEB INH SCH ×4 (00:45→20:30)
[2019-08-14 05:37] LABS: BASOPHILS % 0.3 % (0.0-1.0); EOSINOPHILS % 0.1 % (0.0-6.0); HEMATOCRIT 28.8 % (34.2-44.1); HEMOGLOBIN 9.4 g/dL (12.0-16.0); LYMPHOCYTES # (AUTO) 1.7 (1.0-3.2); LYMPHOCYTES % 17.1 % (18.0-39.1); MEAN CORPUSCULAR HEMOGLOBIN 29.4 pg (28-32); MEAN CORPUSCULAR HGB CONC 32.6 g/dL (31-35); MONOCYTES # (AUTO) 0.4 (0.2-0.8); MONOCYTES % 4.1 % (4.4-11.3); NEUTROPHILS # (AUTO) 7.8 (2.1-6.9); NEUTROPHILS % 78.1 % (38.7-80.0); PLATELET COUNT 368 x10e3/uL (140-360); RED CELL DISTRIBUTION WIDTH 13.1 % (11.7-14.4)
[2019-08-14] MEDS: LEVOTHYROXINE SODIUM 75 MCG TAB PO SCH (06:00)
[2019-08-14 06:34] LABS: FERRITIN 89.38 ng/mL (4.63-204.00)
[2019-08-14] MEDS: INSULIN LISPRO 100 UNIT/1 ML 3ML VIAL SQ SCH ×7 (08:00→21:00)
[2019-08-14] MEDS: FAMOTIDINE 20 MG/2 ML VIAL IV SCH ×2 (08:38→17:03)
[2019-08-14] MEDS: ATORVASTATIN 40 MG TAB PO SCH (08:38)
[2019-08-14] MEDS: PANTOPRAZOLE 40 MG 10ML VIAL IV SCH (08:38)
[2019-08-14] MEDS: METOPROLOL TARTRATE 25 MG TAB PO SCH ×2 (08:39→17:03)
[2019-08-14] MEDS ORDERED: ONDANSETRON HCL INJ 2MG/ML 2ML 2 MG/ML VIAL IV PRN (08:45)
[2019-08-14] MEDS: INSULIN GLARGINE 100 UNITS/ML VIAL SQ SCH ×2 (09:00→21:46)
--- NOTE | 2019-08-14 09:08 | Progress Note ---
DATE: SUBJECTIVE: The patient is seen and evaluated. Discussed with Dr. Chávez. REVIEW OF SYSTEMS: The patient is nauseated but no vomiting, nausea started this morning, seems alert, but uncomfortable with nausea. Nurses in the room; however, no fever, no chills, no chest pain, no shortness of breath. OBJECTIVE: VITAL SIGNS: Temperature is 98.6, pulse is 103, respirations 18, and blood pressure 165/83. GENERAL: Alert and oriented. CV: S1 and S2. CHEST: Equal expansion, decreased breath sounds, some wheezing. ABDOMEN: Soft and nontender. No distention. HEENT: Moist. No pallor. No JVD. EXTREMITIES: No edema. Moves all and is weak. MEDICATIONS: Medication list reviewed. As far as Infectious Disease point of view, the patient is on Zithromax and Rocephin. LABORATORY STUDIES: White count of 9.94, hemoglobin 9.4, and platelets 368. No new BMP from today. SEROLOGY: COVID-19 not detected on 08/12/2019. MICROBIOLOGY: No new microbiology studies available. Previous blood culture and urine culture negative. RADIOLOGY STUDIES: Chest x-ray from yesterday showed [id number] bilateral pleural effusion with associated atelectasis, mild pulmonary edema. ASSESSMENT AND PLAN: 1. Nausea. We will stop Zithromax and Rocephin, we will give Zofran 4 mg p.o. one dose. 2. Aspiration pneumonia. We will stop antibiotics-treated with IV antibiotics. 3. Diabetes mellitus type 2. 4. Fever, resolved. 5. Dysphagia. The patient is status post EGD yesterday, showed hiatal hernia and gastritis, also had esophagitis, distal esophageal stricture. This procedure was done on 08/11. 6. Hypothyroidism. 7. Debility. Stop now IV antibiotics. Continue to monitor nausea. We will give Zofran 4 mg one dose. Continue to monitor the patient clinically and follow with the labs. Discussed with Dr. Chávez in detail. Dictated by Nino Schroeder PA-C (Al) Silvia Chávez MD /MODL /[id number]
--- NOTE | 2019-08-14 09:41 | NUR ---
Pt feeling very short of breath. 02 saturation is 100% on 2L/NC. Pt had just returned form restroom when she started to complain of shortness of breath. Paged Dr. Shah and waiting for call back .
--- NOTE | 2019-08-14 10:46 | NUR ---
ST NOTE: Attempted to see pt for therapy, pt nauseated and did not wish to be disturbed. Outpatient order to treat pt for dysphagia received, will continue to follow pt inpatient and out patient. Handoff to FLOR Nolasco
[2019-08-14] MEDS ORDERED: LEVALBUTEROL HCL SOLN NEBU 0.63 MG/3 ML NEB INH ONE (10:55)
--- NOTE | 2019-08-14 11:03 | Diagnostic Imaging Report ---
EXAMINATION: CHEST SINGLE (PORTABLE) INDICATION: Shortness of breath COMPARISON: Chest radiograph 08/13/2019. FINDINGS: TUBES and LINES: None. LUNGS/PLEURA: Slightly decreased aeration of the lungs. Persistent perihilar fullness and indistinctness of the pulmonary vasculature. Bilateral hazy and consolidative opacities in the lower lung zones. Moderate to large right and moderate left pleural effusions. HEART AND MEDIASTINUM: The cardiomediastinal silhouette is obscured by adjacent opacity. BONES AND SOFT TISSUES: No acute osseous lesion. Soft tissues are unremarkable. UPPER ABDOMEN: No free air under the diaphragm. IMPRESSION: Persistent pulmonary edema with slightly decreased interval lung aeration. Moderate to large right and moderate left bilateral pleural effusions with lower lung zone opacities, likely atelectasis. Superimposed infection is possible in the appropriate clinical setting. Signed by: Dr. Rosa Sauceda MD on 08/14/2019 10:59 AM
--- NOTE | 2019-08-14 13:00 | NUR ---
Paged Dr. Shah twice to report chest xray results. Dr. Shah here to see pt and received orders for a one time dose of lasix 20mg IV and BMP to be done at this time.
[2019-08-14] MEDS ORDERED: FUROSEMIDE INJ 10 MG/ML 2 ML VIAL IV ONE (13:15)
[2019-08-14 14:04] LABS: ALANINE AMINOTRANSFERASE 16 IU/L (0-55); ALBUMIN 2.9 g/dL (3.5-5.0); ALBUMIN/GLOBULIN RATIO 0.9 (0.8-2.0); ALKALINE PHOSPHATASE 155 IU/L (40-150); ANION GAP 13.7 mmol/L (8-16); BLOOD UREA NITROGEN 14 mg/dL (7-26); BUN/CREATININE RATIO 21 (6-25); CARBON DIOXIDE 25 mmol/L (22-29); CHLORIDE 105 mmol/L (98-107); CREATININE, SERUM 0.67 mg/dL (0.57-1.11); EST GLOMERULAR FILTRATION RATE > 60 ML/MIN (60-); GLUCOSE 71 mg/dL (74-118); SODIUM 141 mmol/L (136-145)
[2019-08-14 14:08] LABS: POTASSIUM 2.7 mmol/L (3.5-5.1)
[2019-08-14] MEDS ORDERED: POTASSIUM CHLORIDE 20 MEQ TAB CR PO ONE ×3 (14:45→21:00)
--- NOTE | 2019-08-14 14:49 | Progress Note ---
DATE: Pulmonary Critical Care Progress Note SUBJECTIVE: The patient continues to have dyspnea. She went for repeat chest x-ray today. She has bilateral pleural effusions and some infiltrates. She has no fever. She is not complaining of wheezing. She received some bronchodilators with mild relief. PHYSICAL EXAMINATION: VITAL SIGNS: The blood pressure 131/70, saturation is 100% on 3 L, and the pulse is 116. HEENT: Shows no facial swelling or erythema. CARDIAC: Reveals regular rate and rhythm with normal S1 and S2. LUNGS: Auscultation of lungs reveals decreased breath sounds at the bases. There is no wheezing. ABDOMEN: Soft and nontender. There is no rebound or guarding. EXTREMITIES: Shows no leg edema or calf tenderness. There is no cyanosis or clubbing. SKIN: Shows no rashes. NEUROLOGICAL: Shows no focal abnormalities. LABORATORY DATA: White blood cell count is 9.9 and the hemoglobin is 9.4. The platelet count is 368. Blood sugars are 290 to 350. IMPRESSION: 1. Acute diastolic heart failure. 2. Recurrent aspiration pneumonia. 3. Gastroesophageal reflux. 4. Esophageal stricture. 5. Diabetes. 6. Hypothyroidism. PLAN: 1. Stop IV fluids. 2. The patient to receive Lasix now. 3. Complete antibiotics. 4. Continue Protonix and Pepcid. 5. Continue bronchodilators and oxygen. Pedro Shah MD [facility]/MODL /[id number]
--- NOTE | 2019-08-14 15:00 | NUR ---
Received critical potassium level 2.7, Dr. Shah here to see pt and received orders to give Kdur 40mEq now and another dose of 40mEq of Kdur at 2100.
[2019-08-14] MEDS ORDERED: POTASSIUM CHLORIDE 20MEQ/100ML 200 ML IV ONE (15:15)
[2019-08-14] MEDS: FUROSEMIDE INJ 10 MG/ML 4 ML VIAL IV SCH ×2 (15:18→23:22)
[2019-08-14] MEDS: ENOXAPARIN SOD INJ 40 MG/0.4 ML SYR SC SCH (17:03)
--- NOTE | 2019-08-14 19:00 | NUR ---
RECEIVED PATIENT IN BEDSIDE SHIFT REPORT. PATIENT RESTING IN BED AT THIS TIME. NO PAIN REPORTED. NO S&S OF DISTRESS NOTED. BED ALARM ON. BED LOCKED IN LOWEST POSITION, SIDE RAILS UPX2, CALL LIGHT IN REACH.
[2019-08-14] MEDS ORDERED: SODIUM CHLORIDE 0.9% 500ML 500 ML ONE (19:59)
[2019-08-14] MEDS: HYDROCODONE/APAP 7.5MG-325MG 1 EA TAB PO PRN (21:40)
[2019-08-15] VITALS (7 sets, daily range): BP systolic 101–131; BP diastolic 58–65
[2019-08-15] MEDS: LEVALBUTEROL HCL SOLN NEBU 0.63 MG/3 ML NEB INH SCH ×4 (00:30→20:00)
--- NOTE | 2019-08-15 06:04 | Diagnostic Imaging Report ---
EXAMINATION: CHEST SINGLE (PORTABLE) INDICATION: ^pleural effusions. ^[id number] ^[id number] ^Y COMPARISON: 08/14/2019 FINDINGS: AP view TUBES and LINES: None. LUNGS: Interval increase in right lung airspace disease. Persistent pulmonary edema. PLEURA: Unchanged bilateral pleural effusions, right greater than left. HEART AND MEDIASTINUM: Unchanged. BONES AND SOFT TISSUES: No acute osseous lesion. Soft tissues are unremarkable. UPPER ABDOMEN: No free air under the diaphragm. IMPRESSION: 1. Interval increase in right lung airspace disease which may reflect atelectasis and/or pneumonia. 2. Unchanged pulmonary edema. 3. Unchanged pleural effusions, right greater than left. Signed by: Jose Melo MD on 08/15/2019 6:01 AM
[2019-08-15 06:17] LABS: ANION GAP 11.7 mmol/L (8-16); BLOOD UREA NITROGEN 12 mg/dL (7-26); BUN/CREATININE RATIO 17 (6-25); CALCIUM 9.1 mg/dL (8.4-10.2); CARBON DIOXIDE 30 mmol/L (22-29); CHLORIDE 103 mmol/L (98-107); CREATININE, SERUM 0.72 mg/dL (0.57-1.11); EST GLOMERULAR FILTRATION RATE > 60 ML/MIN (60-); POTASSIUM 3.7 mmol/L (3.5-5.1); SODIUM 141 mmol/L (136-145)
[2019-08-15] MEDS: LEVOTHYROXINE SODIUM 75 MCG TAB PO SCH (06:18)
[2019-08-15 06:23] LABS: GLUCOSE 43 mg/dL (74-118)
[2019-08-15 06:24] LABS: MAGNESIUM 1.1 MG/DL (1.3-2.1)
--- NOTE | 2019-08-15 06:32 | NUR ---
LAB REPORTED GLUCOSE WAS 43. GIVEN 2 CUPS OF ORANGE JUICE. PATIENT ALSO DRINKING ENSURE. BED ALARM ON.
--- NOTE | 2019-08-15 06:47 | NUR ---
PAGED MD MULLER FOR CRITICAL MAGNESIUM LEVEL OF 1.1. AWAITING CALL BACK.
[2019-08-15] MEDS ORDERED: MAGNESIUM SULFATE 2GM/50ML 50 ML IV ONE ×2 (07:15→11:15)
[2019-08-15] MEDS: INSULIN LISPRO 100 UNIT/1 ML 3ML VIAL SQ SCH ×7 (07:30→21:19)
[2019-08-15] MEDS: METOPROLOL TARTRATE 25 MG TAB PO SCH ×2 (08:44→16:45)
[2019-08-15] MEDS: ATORVASTATIN 40 MG TAB PO SCH (08:44)
[2019-08-15] MEDS: FAMOTIDINE 20 MG/2 ML VIAL IV SCH ×2 (08:44→16:45)
[2019-08-15] MEDS: FUROSEMIDE INJ 10 MG/ML 4 ML VIAL IV SCH ×3 (08:44→23:49)
[2019-08-15] MEDS: PANTOPRAZOLE 40 MG 10ML VIAL IV SCH (08:44)
[2019-08-15] MEDS: INSULIN GLARGINE 100 UNITS/ML VIAL SQ SCH ×2 (09:00→21:17)
--- NOTE | 2019-08-15 09:27 | Progress Note ---
DATE: SUBJECTIVE: The patient is seen and evaluated. Discussed with the nurse. The patient remains with poor appetite. REVIEW OF SYSTEMS: The patient has no complaint; however, the nurse says that the patient has diarrhea. Otherwise, no nausea, no vomiting, no fever, no chills, no chest pain, no shortness of breath. OBJECTIVE: VITAL SIGNS: Temperature 97.1, pulse 96, respirations 20, and blood pressure 131/65. GENERAL: Alert and oriented; however, weak. CV: S1 and S2. CHEST: Equal expansion, clear to auscultation. No acute distress. ABDOMEN: Soft and nontender. No distention. HEENT: Moist. No pallor. No JVD. EXTREMITIES: Weak with 1 to 2+ edema of feet. MEDICATIONS: Medication list reviewed. As far as Infectious Disease point of view, the patient's antibiotics were stopped yesterday and currently off antibiotics. LABORATORY STUDIES: White count of 9.94 with a creatinine of 0.72, GFR of greater than 60, platelets of 368; however, the CBC is from yesterday. MICROBIOLOGY: No new microbiology studies available. RADIOLOGY: Chest x-ray from today showed increasing right lung airspace disease, may reflect atelectasis and/or pneumonia. Unchanged pulmonary edema. Unchanged pleural effusion, right greater than left. ASSESSMENT AND PLAN: 1. Diarrhea. The patient has completed a course of IV antibiotics. We will send the stool for Clostridium difficile and start vancomycin p.o.. 2. Nausea, most likely was secondary to antibiotics, stopped. Nausea has improved. 3. Aspiration pneumonia, status post IV antibiotics. 4. Fever, resolved. 5. Dysphagia-the patient is status post EGD with dilation of esophageal stricture on 08/11. 6. Hypothyroidism. 7. Debility. Discussed with Dr. Chávez in detail. Further management of this patient based on daily finding on laboratory and physical examination. Please refer to chart for more information. Dictated by Nino Schroeder PA-C (Al) Silvia Chávez MD /MODL /[id number]
[2019-08-15] MEDS: VANCOMYCIN 250MG/5ML ORAL SOLN PO SCH ×3 (12:00→23:49)
--- NOTE | 2019-08-15 13:00 | NUR ---
ST NOTE: Attempted to see pt for dysphagia therapy, pt fatigued and refused to participate. Will continue to follow pt, have orders to treat pt in OP setting
--- NOTE | 2019-08-15 14:00 | NUR ---
Pt being transferred to radiology dept in wheelchair for thoracentesis. Pt is aox3 and able to verbalize needs. Denies any pain at this time. Pt is on 3L/NC. Spoke with daughter prior to procedure to and let her know that pt could possibly be discharging home on Sunday.
--- NOTE | 2019-08-15 14:34 | Progress Note ---
DATE: SUBJECTIVE: The patient still has some dyspnea. She does not complain of chest pain or fevers. PHYSICAL EXAMINATION: VITAL SIGNS: The patient is afebrile. Blood pressure is 129/64 and O2 saturation is 100% on 3 L. HEENT: Shows no facial swelling or erythema. CARDIAC: Reveals regular rate and rhythm with normal S1, S2. LUNGS: Auscultation of lungs reveals rhonchorous breath sounds bilaterally. There is no wheezing. ABDOMEN: Soft, nontender. There is no rebound or guarding. EXTREMITIES: Show no leg edema or calf tenderness. There is no cyanosis or clubbing. SKIN: Shows no rashes. NEUROLOGIC: Shows no focal abnormalities. LABORATORY DATA: Magnesium is 1.1 and the glucose is 43. White blood cell count is 9.9, hemoglobin is 9.4, and platelet count is 368. IMPRESSION: 1. Aspiration pneumonia. 2. Recurrent pleural effusions. 3. Esophageal stricture. 4. Gastroesophageal reflux. 5. Hypothyroidism. 6. Hypomagnesemia. PLAN: 1. Arrange for ultrasound-guided thoracentesis. 2. Replace magnesium. 3. Continue to follow recommendations of speech pathology. 4. Aspiration precautions. 5. Arrange for ultrasound-guided thoracentesis. MD BC Casas/MIKA /[id number]
--- NOTE | 2019-08-15 15:35 | Diagnostic Imaging Report ---
EXAMINATION: CHEST SINGLE (NOT PORTABLE) INDICATION: Postprocedural COMPARISON: Chest radiograph of earlier the same day FINDINGS: LINES/TUBES:EKG leads overlie the chest. LUNGS:Interval improvement in lung aeration. Bibasilar patchy opacities. PLEURA:Interval decrease in right pleural effusion, now trace. No pneumothorax status post right thoracentesis. MEDIASTINUM:The cardiomediastinal silhouette appears unchanged in size and shape. BONES/SOFT TISSUES:No acute osseous injury. ABDOMEN:No free air under the diaphragm. IMPRESSION: No pneumothorax status post right thoracentesis. Trace residual right pleural effusion. Bibasilar patchy opacities, most likely subsegmental atelectasis. Signed by: Katie Aj MD on 08/15/2019 3:32 PM
--- NOTE | 2019-08-15 15:37 | Diagnostic Imaging Report ---
PROCEDURE: Ultrasound-guided thoracentesis Procedural Personnel Attending physician(s): Katie Aj MD Fellow physician(s): None Resident physician(s): None Advanced practice provider(s): None Pre-procedure diagnosis: Right pleural effusion Post-procedure diagnosis: Same Indication: Pleural effusion with compromised respiration Additional clinical history: None Complications: No immediate complications. IMPRESSION: Ultrasound-guided thoracentesis with drainage of 1000 mL of serous fluid. Plan: Resume care by clinical team. PROCEDURE SUMMARY: - Limited thoracic ultrasound - Ultrasound-guided thoracentesis - Additional procedure(s): None PROCEDURE DETAILS: Pre-procedure Consent: Informed consent for the procedure including risks, benefits and alternatives was obtained and time-out was performed prior to the procedure. Preparation: The site was prepared and draped using maximal sterile barrier technique including cutaneous antisepsis. Anesthesia/sedation Level of anesthesia/sedation: No sedation Anesthesia/sedation administered by: Not applicable Total intra-service sedation time (minutes): NA Limited thoracic ultrasound Limited thoracic ultrasound was performed using a curved transducer. A safe window for thoracentesis was identified. Left hemithorax findings: Not investigated Right hemithorax findings: Moderate pleural effusion Thoracentesis Local anesthesia was administered. The pleural space was accessed under real-time ultrasound guidance and fluid return confirmed position. The fluid was drained. The catheter was removed, and a sterile bandage was applied. Catheter placed: 5F Mattie Post-drainage hemithorax findings: Trace pleural effusion Additional Details Additional description of procedure: None Equipment details: None Specimens removed: Pleural fluid Estimated blood loss (mL): Less than 10 Standardized report: [id number] Attestation Signer name: Katie Aj MD I attest that I was present for the entire procedure. I reviewed the stored images and agree with the report as written. Signed by: Katie Aj MD on 08/15/2019 3:33 PM
--- NOTE | 2019-08-15 16:00 | NUR ---
Pt returned from thoracentesis. Pt is aox4 and able to verbalize needs. Pt has dressing to right midback. Dressing is dry and intact. 1000mls were removed.
--- NOTE | 2019-08-15 16:26 | NUR ---
ATTEMPTED TO CALL PT'S DTR AMADEO SHANKS AT [phone] TO NOTIFY HER THAT PT'S PROJECTED DC IS THIS SUNDAY. NO ANSWER, RECORDING STATES "THE [employer] [facility] YOU ARE CALLING IS NOT AVAILABLE. PLEASE TRY AGAIN LATER". NURSE TO REACH OUT TO DTR THIS WEEKEND TO NOTIFY OF PENDING DC SUNDAY.
[2019-08-15] MEDS: ENOXAPARIN SOD INJ 40 MG/0.4 ML SYR SC SCH (16:45)
[2019-08-15 17:17] LABS: BODY FLUID APPEARANCE SL.CLOUDY; BODY FLUID COLOR YELLOW; BODY FLUID TYPE PLEURAL
[2019-08-15 18:37] LABS: RBC,BODY FLUID 46 cells/uL; WBC,BODY FLUID 32 cells/uL
[2019-08-15 18:56] LABS: LYMPHOCYTES,BODY FLUID 68 %; MONO/MACROPHG,BODY FLUID 3 %; NEUTROPHILS,BODY FLUID 2 %; OTHER CELLS,BODY FLUID 27 %
--- NOTE | 2019-08-15 19:00 | NUR ---
RECEIVED PATIENT IN BEDSIDE REPORT. PATIENT RESTING IN BED AT THIS TIME. A&OX3. NO PAIN REPORTED. NO S&S OF DISTRESS NOTED. O2@3L VIA NC. BED LOCKED IN LOWEST POSITION, SIDE RAILS UPX2, CALL LIGHT IN REACH.
--- NOTE | 2019-08-15 23:00 | NUR ---
MD Jacobo MARTELLDAD IN TO SEE PATIENT. NO NEW ORDERS AT THIS TIME.
[2019-08-16] VITALS (8 sets, daily range): BP systolic 96–151; BP diastolic 47–88
--- NOTE | 2019-08-16 02:27 | Progress Note ---
DATE: 08/15/2019 Cardiology Progress Note SUBJECTIVE: No major events overnight. Denies any chest pain or shortness of breath. OBJECTIVE: VITAL SIGNS: Temperature afebrile, pulse 87, respiratory rate 18, blood pressure 110/58, and saturating 97% on nasal cannula. GENERAL: Elderly female, in no acute distress. CARDIOVASCULAR: Regular rate and rhythm. No murmurs, rubs, or gallops. LUNGS: Clear to auscultation bilaterally. ABDOMEN: Soft, nontender, and nondistended. NEURO AND PSYCH: Alert and oriented to person, place, and time. Normal mood and affect. INPATIENT MEDICATIONS: Reviewed. LABORATORY DATA: Reviewed. TELEMETRY DATA: Reviewed, shows normal sinus rhythm. ASSESSMENT: 1. Aspiration pneumonia. 2. Recurrent pleural effusion. 3. Esophageal stricture, status post dilation. 4. History of gastroesophageal reflux disease. 5. Coronary artery disease, status post multiple percutaneous coronary interventions in the past. PLAN: Remained stable from a cardiovascular standpoint. Continue current medications. No plans for any further cardiovascular workup or intervention at this time. She can follow up postdischarge in clinic 1 to 2 weeks. Thank you for this consult. We will continue to follow. MD ANNALEE Castro/MIKA /[id number]
[2019-08-16] MEDS: LEVALBUTEROL HCL SOLN NEBU 0.63 MG/3 ML NEB INH SCH ×4 (02:40→19:35)
[2019-08-16 06:01] LABS: BLOOD UREA NITROGEN 15 mg/dL (7-26); BUN/CREATININE RATIO 23 (6-25); CALCIUM 9.1 mg/dL (8.4-10.2); CARBON DIOXIDE 35 mmol/L (22-29); CHLORIDE 96 mmol/L (98-107); CREATININE, SERUM 0.66 mg/dL (0.57-1.11); EST GLOMERULAR FILTRATION RATE > 60 ML/MIN (60-); MAGNESIUM 1.5 MG/DL (1.3-2.1); SODIUM 142 mmol/L (136-145)
[2019-08-16 06:05] LABS: GLUCOSE 58 mg/dL (74-118)
[2019-08-16] MEDS: VANCOMYCIN 250MG/5ML ORAL SOLN PO SCH (06:09)
[2019-08-16] MEDS: LEVOTHYROXINE SODIUM 75 MCG TAB PO SCH (06:09)
--- NOTE | 2019-08-16 06:10 | NUR ---
PATIENT'S BLOOD SUGAR REPORTED 58 BY LAB. PATIENT ASYMPTOMATIC. PROVIDED PATIENT WITH ORANGE JUICE AND GLUCERNA.
--- NOTE | 2019-08-16 06:22 | Diagnostic Imaging Report ---
EXAMINATION: CHEST SINGLE (PORTABLE) INDICATION: ^CHF ^[id number] ^0600 ^Y COMPARISON: 08/15/2019 FINDINGS: AP view TUBES and LINES: None. LUNGS: Unchanged central pulmonary venous congestion. Interval development of ill-defined right lower lung airspace opacity. PLEURA: Slight interval decrease in right pleural effusion. Unchanged small left pleural effusion. HEART AND MEDIASTINUM: Stable cardiomegaly. BONES AND SOFT TISSUES: No acute osseous lesion. Soft tissues are unremarkable. UPPER ABDOMEN: No free air under the diaphragm. IMPRESSION: 1. Unchanged cardiomegaly with central pulmonary venous congestion. 2. Slight interval decrease in size of the small right pleural effusion. Unchanged small left pleural effusion. 3. Interval development of right lower lung zone airspace opacity, likely atelectasis. Pneumonia may appear similar. Signed by: Jose Melo MD on 08/16/2019 6:19 AM
--- NOTE | 2019-08-16 07:00 | NUR ---
RECEIVED PATIENT AWAKE AT THIS TIME. NO S/S OF DISTRESS. BED LOW, WHEELS LOCKED, SIDE RAILS X2. CALL LIGHT IN REACH WILL CONTINUE TO MONITOR PATIENT.
[2019-08-16] MEDS: INSULIN LISPRO 100 UNIT/1 ML 3ML VIAL SQ SCH ×7 (07:30→20:18)
[2019-08-16] MEDS: INSULIN GLARGINE 100 UNITS/ML VIAL SQ SCH ×2 (09:00→20:18)
[2019-08-16] MEDS: METOPROLOL TARTRATE 25 MG TAB PO SCH ×2 (09:25→15:42)
[2019-08-16] MEDS: PANTOPRAZOLE 40 MG 10ML VIAL IV SCH (09:25)
[2019-08-16] MEDS: ATORVASTATIN 40 MG TAB PO SCH (09:25)
[2019-08-16] MEDS: FAMOTIDINE 20 MG/2 ML VIAL IV SCH ×2 (09:25→16:19)
[2019-08-16] MEDS: FUROSEMIDE INJ 10 MG/ML 4 ML VIAL IV SCH ×2 (10:43→15:42)
[2019-08-16] MEDS: ACETAMINOPHEN 325 MG TAB PO PRN (12:16)
--- NOTE | 2019-08-16 14:13 | Progress Note ---
DATE: SUBJECTIVE: The patient underwent thoracentesis yesterday. She is feeling better. She has less dyspnea. She does not have fever. PHYSICAL EXAMINATION: VITAL SIGNS: Stable. Blood pressure is 121/56 and saturation is 98%. HEENT: Shows no facial swelling or erythema. CARDIAC: Reveals regular rate and rhythm with normal S1 and S2. LUNGS: Auscultation of lungs reveals decreased breath sounds at the bases. There is no wheezing. ABDOMEN: Soft, nontender. There is no rebound or guarding. EXTREMITIES: Show no leg edema or calf tenderness. There is no cyanosis or clubbing. SKIN: Shows no rashes. NEUROLOGIC: Shows no focal abnormalities. IMPRESSION: 1. Recurrent aspiration pneumonia with parapneumonic effusion. 2. Esophageal reflux. 3. Esophageal stricture. 4. Coronary artery disease. PLAN: 1. Wean oxygen. 2. Complete antibiotics. 3. Continue to monitor and control blood sugars. 4. Repeat CBC and electrolytes tomorrow. MD BC Casas/MIKA /[id number]
--- NOTE | 2019-08-16 14:47 | NUR ---
PATIENT STATES SHE FEELS SHAKY. BLOOD SUGAR CHECKED 46. APPLE JUICE GIVEN X2. WILL RECHECK IN 30 MINUTES.
--- NOTE | 2019-08-16 15:20 | NUR ---
BLOOD SUGAR RECHECKED 105. WILL CONTINUE TO MONITOR PATIENT.
[2019-08-16] MEDS: ENOXAPARIN SOD INJ 40 MG/0.4 ML SYR SC SCH (16:19)
[2019-08-16] MEDS: CHOLESTYRAMINE 4 GM PACKET PO SCH ×2 (16:19→22:00)
--- NOTE | 2019-08-16 22:58 | NUR ---
SPOKE TO DR. Jacobo GARCIA REGARDING PT C/O DIARRHEA. NEW ORDER RECEIVED FOR LOMOTIL 2 TABS ONCE.
[2019-08-16] MEDS ORDERED: HYDROCODONE/APAP 7.5MG-325MG 1 EA TAB PO PRN (23:15)
--- NOTE | 2019-08-16 23:15 | NUR ---
SPOKE TO DR. Jacobo GARCIA REGARDING PT C/O BACK PAIN. NEW ORDER RECEIVED FOR KOSTAS SEE.
[2019-08-16] MEDS: DIPHENOXYLATE/ATROPINE TAB PO ONE (23:24)
--- NOTE | 2019-08-16 23:40 | NUR ---
DR. Jacobo GARCIA DOING ROUNDS, NEW ORDER RECEIVED FOR KOSTAS PARKER.
[2019-08-16] MEDS ORDERED: DIPHENOXYLATE/ATROPINE TAB PO PRN (23:45)
[2019-08-17] MEDS: DIPHENOXYLATE/ATROPINE TAB PO ONE (00:32)
[2019-08-17] MEDS: LEVALBUTEROL HCL SOLN NEBU 0.63 MG/3 ML NEB INH SCH ×2 (00:35→07:22)
[2019-08-17 00:49] VITALS: BP 120/72
[2019-08-17] MEDS: ACETAMINOPHEN 325 MG TAB PO PRN (03:29)
[2019-08-17 05:07] VITALS: BP 127/57
[2019-08-17] MEDS: LEVOTHYROXINE SODIUM 75 MCG TAB PO SCH (05:34)
[2019-08-17 05:43] LABS: BASOPHILS % 0.3 % (0.0-1.0); EOSINOPHILS # (AUTO) 0.2 (0.0-0.4); HEMATOCRIT 27.6 % (34.2-44.1); HEMOGLOBIN 8.8 g/dL (12.0-16.0); LYMPHOCYTES # (AUTO) 2.8 (1.0-3.2); LYMPHOCYTES % 35.4 % (18.0-39.1); MEAN CORPUSCULAR HGB CONC 31.9 g/dL (31-35); MEAN CORPUSCULAR VOLUME 91.1 fL (81-99); MONOCYTES # (AUTO) 0.6 (0.2-0.8); MONOCYTES % 7.7 % (4.4-11.3); NEUTROPHILS # (AUTO) 4.3 (2.1-6.9); NEUTROPHILS % 54.1 % (38.7-80.0); PLATELET COUNT 314 x10e3/uL (140-360); RED BLOOD COUNT 3.03 x10e6/uL (3.6-5.1); RED CELL DISTRIBUTION WIDTH 13.6 % (11.7-14.4)
[2019-08-17 06:01] LABS: ALANINE AMINOTRANSFERASE 14 IU/L (0-55); ALBUMIN 2.6 g/dL (3.5-5.0); ALBUMIN/GLOBULIN RATIO 0.8 (0.8-2.0); ALKALINE PHOSPHATASE 121 IU/L (40-150); ANION GAP 12.3 mmol/L (8-16); BLOOD UREA NITROGEN 15 mg/dL (7-26); BUN/CREATININE RATIO 22 (6-25); CALCIUM 8.7 mg/dL (8.4-10.2); CARBON DIOXIDE 33 mmol/L (22-29); CHLORIDE 95 mmol/L (98-107); CREATININE, SERUM 0.68 mg/dL (0.57-1.11); EST GLOMERULAR FILTRATION RATE > 60 ML/MIN (60-); GLUCOSE 98 mg/dL (74-118); POTASSIUM 3.3 mmol/L (3.5-5.1); SODIUM 137 mmol/L (136-145)
--- NOTE | 2019-08-17 07:00 | NUR ---
RECEIVED PATIENT AWAKE AT THIS TIME. NO S/S OF DISTRESS. BED LOW, WHEELS LOCKED, SIDE RAILS X2. CALL LIGHT IN REACH WILL CONTINUE TO MONITOR PATIENT.
[2019-08-17] MEDS: INSULIN LISPRO 100 UNIT/1 ML 3ML VIAL SQ SCH ×4 (07:30→12:00)
[2019-08-17] MEDS: METOPROLOL TARTRATE 25 MG TAB PO SCH (08:15)
[2019-08-17] MEDS: INSULIN GLARGINE 100 UNITS/ML VIAL SQ SCH (08:17)
[2019-08-17 08:30] VITALS: BP 104/54
[2019-08-17] MEDS: FUROSEMIDE INJ 10 MG/ML 4 ML VIAL IV SCH (08:54)
[2019-08-17] MEDS: PANTOPRAZOLE 40 MG 10ML VIAL IV SCH (08:54)
[2019-08-17] MEDS: CHOLESTYRAMINE 4 GM PACKET PO SCH (08:54)
[2019-08-17] MEDS: FAMOTIDINE 20 MG/2 ML VIAL IV SCH (08:54)
[2019-08-17] MEDS: ATORVASTATIN 40 MG TAB PO SCH (08:54)
[2019-08-17 09:19] VITALS: BP 104/54
--- NOTE | 2019-08-17 11:11 | Progress Note ---
DATE: SUBJECTIVE: The patient feels better. She has less dyspnea. She is not complaining of cough or congestion. She is walking to the bathroom. PHYSICAL EXAMINATION: VITAL SIGNS: Blood pressure is 104/54 and the saturation is 94% on 2 L. HEENT: Shows no facial swelling or erythema. CARDIAC: Reveals regular rate and rhythm with normal S1 and S2. LUNGS: Auscultation of lungs shows decreased breath sounds at the bases. There is no wheezing. ABDOMEN: Soft, nontender. There is no rebound or guarding. EXTREMITIES: Show no leg edema or calf tenderness. There is no cyanosis or clubbing. SKIN: Shows no rashes. NEUROLOGICAL: Shows no focal abnormalities. LABORATORY DATA: White blood cell count is 7.9 and hemoglobin is 8.8. The platelet count is 314. The BUN to creatinine ratio is 15 to 0.68. The potassium is 3.3. IMPRESSION: 1. Recurrent aspiration pneumonia. 2. Esophageal reflux. 3. Esophageal stricture. 4. Coronary artery disease. PLAN: 1. Complete antibiotics. 2. Wean oxygen. 3. The patient is okay for complete antibiotics. 4. Continue aspiration precautions and following recommendations of speech pathology. Pedro Shah MD LM/MIKA /[id number]
[2019-08-17] MEDS ORDERED: POTASSIUM CHLORIDE 20 MEQ TAB CR PO NR (12:00)
--- NOTE | 2019-08-17 12:21 | Discharge Summary ---
HOSPITAL COURSE: The patient's discharge held because of shortness of breath. The patient developed bilateral pleural effusion and congestion. She was treated with IV Lasix and symptoms improved. The patient will be discharged home today. DISCHARGE DIAGNOSES: 1. Decompensated congestive heart failure. 2. Esophageal stricture. 3. Dysphagia. 4. Diabetic ketoacidosis. 5. Seizure from electrolyte abnormality including hypokalemia, hypomagnesemia. The patient is to follow up in the office one week. Diomedes Dupont MD TG/MODL /[id number]
[2019-08-17 12:23] VITALS: BP 141/64
[2019-08-17] MEDS ORDERED: LASIX40 MG PO (13:52)
[2019-08-17] MEDS ORDERED: ALDACTONE25 MG PO (13:53)
[2019-08-17] MEDS ORDERED: ASPIR 8181 MG PO (13:53)
[2019-08-17] MEDS ORDERED: PANTOPRAZOLE SO40 MG PO (13:54)
--- NOTE | 2019-08-17 14:23 | NUR ---
REMOVED PATIENTS IV. CATHETER TIP INTACT AND PRESSURE DRESSING APPLIED.
--- NOTE | 2019-08-17 14:44 | NUR ---
PATIENT DISCHARGED FROM FACILITY. PATIENT GATHERED ALL PERSONAL BELONGINGS, DISCHARGE INSTRUCTIONS, AND FOLLOW UP INFORMATION. PATIENT LEFT UNIT IN WHEELCHAIR AND WENT HOME VIA PRIVATE AUTO.
== END 2019-08-17 14:44 | disposition home or self-care (01) | DRG 637 ==
LOC: ER 05:55 → ERHOLD 08:20 → ICU 14:20 → MED/SURG 08-01 16:40
PROVIDERS: ADMIT Internal Medicine; ATTEND Internal Medicine
PROC: 0DB68ZX Excision of Stomach, Via Natural or Artificial Opening Endoscopic, Diagnostic (ICD-10-PCS; principal; 2019-08-10)
PROC: 0D748ZZ Dilation of Esophagogastric Junction, Via Natural or Artificial Opening Endoscopic (ICD-10-PCS; 2019-08-10)
PROC: 0W993ZZ Drainage of Right Pleural Cavity, Percutaneous Approach (ICD-10-PCS; 2019-08-15)
DX: E11.10 Type 2 diabetes mellitus with ketoacidosis without coma (principal); J69.0 Pneumonitis due to inhalation of food and vomit; I50.31 Acute diastolic (congestive) heart failure; N17.9 Acute kidney failure, unspecified; E87.1 Hypo-osmolality and hyponatremia; N39.0 Urinary tract infection, site not specified; D50.0 Iron deficiency anemia secondary to blood loss (chronic); E87.6 Hypokalemia; E03.9 Hypothyroidism, unspecified; E11.21 Type 2 diabetes mellitus with diabetic nephropathy; E11.319 Type 2 diabetes mellitus with unspecified diabetic retinopathy without macular edema; E11.42 Type 2 diabetes mellitus with diabetic polyneuropathy; I25.2 Old myocardial infarction; F41.9 Anxiety disorder, unspecified; I25.10 Atherosclerotic heart disease of native coronary artery without angina pectoris; K21.9 Gastro-esophageal reflux disease without esophagitis; I11.0 Hypertensive heart disease with heart failure; M81.0 Age-related osteoporosis without current pathological fracture; E86.0 Dehydration; T38.3X6A Underdosing of insulin and oral hypoglycemic [antidiabetic] drugs, initial encounter; R07.89 Other chest pain; F03.90 Unspecified dementia, unspecified severity, without behavioral disturbance, psychotic disturbance, mood disturbance, and anxiety; K22.2 Esophageal obstruction; Z79.4 Long term (current) use of insulin; Z91.19 Patient's noncompliance with other medical treatment and regimen; Z96.641 Presence of right artificial hip joint; Z95.5 Presence of coronary angioplasty implant and graft; Z83.3 Family history of diabetes mellitus; Z82.49 Family history of ischemic heart disease and other diseases of the circulatory system; E83.42 Hypomagnesemia; K20.9 Esophagitis, unspecified; K44.9 Diaphragmatic hernia without obstruction or gangrene; K29.70 Gastritis, unspecified, without bleeding; D64.9 Anemia, unspecified; G40.909 Epilepsy, unspecified, not intractable, without status epilepticus; Z79.82 Long term (current) use of aspirin
CPT/HCPCS: 32555; 36415; 43239; 43450; 70450; 71045; 71046; 74230; 74470; 80048; 80053; 81001; 82550; 82553; 82607; 82728; 82948; 83036; 83540; 83615; 83630; 83735; 83880; 84157; 84439; 84443; 84466; 84484; 85025; 85610; 85730; 87040; 87045; 87070; 87086; 87177; 87205; 87493; 87635; 88112; 88305; 88312; 89051; 93005; 93306; 94640; 96360; 96361; 96372; 99285; J0696; J1650; J1815; J1817; J1940; J2001; J2405; J2920; J3475; J3480; J7030; J7040; J7042; J7050; J7799

== ENCOUNTER 2019-08-27 21:38 | Emergency (ER) | payer MEDICARE ==
[~2019-08-27] VITALS: Ht 269.2 cm; Wt 44.5 kg
[~2019-08-27 21:38] MED LIST changes: +ALDACTONE25 MG PO; +ASPIR 8181 MG PO; +LASIX40 MG PO; +PANTOPRAZOLE SO40 MG PO
--- OUTSIDE RECORDS SUMMARY | 2019-08-27 21:42 | XMS REPORT ---
Author Author [facility] t Organization [facility] Address [address] [place] [address] Phone Unavailable Care Team Providers Care Adjunct Psychology Professor Name Role Phone ELIDA ROSEANNE PCP [phone] ELIDA FLORES, ROSEANNE Attphys Sebastián Dela Cruz Attphys Unavailable KAM ARRINGTON Attphys Unavailable Yang JACOBSEN Attphys Unavailable BANDHAKAVI, SUBHADRA Attphys Unavailable NARESH PINEDA Attphys Unavailable LYNSEY GARCIA Attphys Unavailable ELIDA FLORES, ROSEANNE Admphys Yusuf VILLAR, QUINTON Admphys Unavailable MIRIAM NARESH Admphys Unavailable Payers Payer Name Policy Type Policy Number Effective Date Expiration Date Jessica syed Medicare A & B [id number] 2005 00:00:00 [facility] [id number] [facility] [id number] 2017 00:00:00 [facility] Medicare A & B [id number] 2005 00:00:00 [facility] [id number] 2017 00:00:00 [facility] Medicare A & B [id number] 2005 00:00:00 [facility] Advance Directives Directive Decision Effective Date Termination Date Comments Sour ce Yes N/A [facility] Problems Condition Name Condition Details Condition Category Status Onset Date Resolution Date Last Treatment Date Treating Clinician Comments Source Acute urinary tract infection Problem Active 2014-01-01 00:00:00 [facility] Hypokalemia Problem Active 2014-01-01 00:00:00 [facility] Fracture of right hip Problem [facility] Closed intertrochanteric fracture of right femur Problem [facility] Hyperglycemic hyperosmolar nonketotic coma Problem [facility] Allergies, Adverse Reactions, Alerts This patient has no known allergies or adverse reactions. Social History Social Habit Start Date Stop Date Quantity Comments Source Sex Assigned At 1940 00:00:00 1940 00:00:00 Female [facility] Medications Ordered Medication Name Filled Medication Name Start Date Stop Da te Current Medication? Ordering Clinician Indication Dosage Frequency Signature (SIG) Comments Components Source Aspirin (Aspirin Chew) 81 Mg Chew Aspirin (Aspirin Chew) 81 Mg Chew Yes 81 Daily [facility] Atorvastatin Calcium (Lipitor) 20 Mg Tablet Atorvastat in Calcium (Lipitor) 20 Mg Tablet Yes 40 Daily [facility] Clonazepam 0.5 Mg Tablet Clonazepam 0.5 Mg Tablet Yes .5 Daily [facility] Clopidogrel Bisulfate (Plavix) 75 Mg Tablet Clopidogre l Bisulfate (Plavix) 75 Mg Tablet Yes 75 Daily [facility] Dexlansoprazole (Dexilant) 60 Mg Reid. Dexlansopra zole (Dexilant) 60 Mg Cap. Yes 60 Daily [facility] Dicyclomine Hcl 10 Mg Capsule Dicyclomine Hcl 10 Mg Capsule Yes 10 Daily [facility] Gabapentin 300 Mg Capsule Gabapentin 300 Mg Capsule Yes 300 Three Times A Day [facility] Gabapentin 300 Mg Capsule Gabapentin 300 Mg Capsule Yes 300 Three Times A Day [facility] Hydrocodone Bit/Acetaminophen (Eclectic 5-325 Tablet) 1 E ach Tablet Hydrocodone Bit/Acetaminophen (Eclectic 5-325 Tablet) 1 Each Tablet Yes 1 As Needed [facility] Hydrocodone Bit/Acetaminophen (Eclectic 5-325 Tablet) 1 E ach Tablet Hydrocodone Bit/Acetaminophen (Eclectic 5-325 Tablet) 1 Each Tablet Yes 1 Three Times A Day [facility] Insulin Glargine (Lantus) 100 Units/Ml Ml Insulin Glar gine (Lantus) 100 Units/Ml Ml Yes 25 Twice A Day [facility] Insulin Lispro (Humalog) 100 Unit/1 Ml Cartridge Insul in Lispro (Humalog) 100 Unit/1 Ml Cartridge Yes 8 Three Times A Day [facility] Levothyroxine Sodium 100 Mcg Tablet Levothyroxine Sodium 100 Mcg Tabl et Yes 100 Daily [facility] Losartan/Hydrochlorothiazide (Losartan-Hctz 100-12.5 M g Tab) 1 Each Tablet Losartan/Hydrochlorothiazide (Losartan-Hctz 100-12.5 Mg Tab) 1 Each Tablet Yes Daily [facility] Metoprolol Tartrate 25 Mg Tablet Metoprolol Tartrate 25 Mg Tablet Yes 25 Twice A Day [facility] Ondansetron (Ondansetron Odt) 8 Mg Tab.rapdis Ondanset kvng (Ondansetron Odt) 8 Mg Tab.rapdis Yes 8 As Needed [facility] Pantoprazole Sodium (Protonix) 40 Mg Suspdr.pkt Pantop razole Sodium (Protonix) 40 Mg Suspdr.pkt Yes 40 Daily [facility] Temazepam (Restoril) 15 Mg Capsule Temazepam (Restoril) 15 Mg Capsule Yes 15 Bedtime [facility] Temazepam 15 Mg Capsule Temazepam 15 Mg Capsule Yes Bedtime [facility] Aspirin (Aspir 81) 81 Mg TABLET. Aspirin (Aspir 81) 81 Mg TABLET. Yes 81 [facility] Atorvastatin Calcium (Lipitor) 20 Mg TABLET Atorvastat in Calcium (Lipitor) 20 Mg TABLET Yes 40 [facility] Atorvastatin Calcium (Lipitor) 20 Mg TABLET Atorvastat in Calcium (Lipitor) 20 Mg TABLET Yes 40 [facility] Clonazepam Clonazepam Yes .5 [facility] Clonazepam (Klonopin) 0.5 Mg TABLET Clonazepam (Klonopin) 0.5 Mg TABL ET Yes .5 [facility] Clopidogrel Bisulfate (Plavix) 75 Mg TABLET Clopidogre l Bisulfate (Plavix) 75 Mg TABLET Yes 75 [facility] Clopidogrel Bisulfate (Clopidogrel) 75 Mg TABLET Clopi dogrel Bisulfate (Clopidogrel) 75 Mg TABLET Yes 75 [facility] Furosemide (Lasix) 40 Mg TABLET Furosemide (Lasix) 40 Mg TABLET Yes 40 [facility] Hydrocodone Bit/Acetaminophen (Hydrocodone-Apap 7.5-32 5 Mg Tb) 1 Each TABLET Hydrocodone Bit/Acetaminophen (Hydrocodone-Apap 7.5-325 Mg Tb) 1 Each TABLET Yes 1 [facility] Hydrocodone Bit/Acetaminophen (Eclectic 5-325 Tablet) 1 E ach TABLET Hydrocodone Bit/Acetaminophen (Eclectic 5-325 Tablet) 1 Each TABLET Yes 1 [facility] Insulin Glargine,Hum.rec.anlog (Lantus) 100 Unit/1 Ml VIAL Insulin Glargine,Hum.rec.anlog (Lantus) 100 Unit/1 Ml VIAL Yes 15 [facility] Insulin Lispro (Humalog) 100 Unit/1 Ml CARTRIDGE Insul in Lispro (Humalog) 100 Unit/1 Ml CARTRIDGE Yes 8 [facility] Levothyroxine Sodium Levothyroxine Sodium Yes 150 [facility] Levothyroxine Sodium Levothyroxine Sodium Yes 150 [facility] Metoprolol Tartrate Metoprolol Tartrate Yes 25 [facility] Metoprolol Tartrate Metoprolol Tartrate Yes 25 [facility] Omeprazole Omeprazole Yes 20 [facility] Omeprazole Omeprazole Yes 20 [facility] Pantoprazole Sodium (Protonix) 40 Mg TABLET. Pantopr azole Sodium (Protonix) 40 Mg TABLET. Yes 40 [facility] Spironolactone (Aldactone) 25 Mg TABLET Spironolactone ([place] ctone) 25 Mg TABLET Yes 25 [facility] Temazepam Temazepam Yes 15 [facility] Temazepam Temazepam Yes 15 [facility] Atorvastatin Calcium (Lipitor) 20 Mg Tablet Atorvastat in Calcium (Lipitor) 20 Mg Tablet Yes 40 Bedtime [facility] Clonazepam (Klonopin) 0.5 Mg Tablet Clonazepam (Klonopin) 0.5 Mg Tabl et Yes .5 Daily [facility] Clopidogrel Bisulfate (Plavix) 75 Mg Tablet Clopidogre l Bisulfate (Plavix) 75 Mg Tablet Yes 75 Daily [facility] Hydrocodone Bit/Acetaminophen (Eclectic 5-325 Tablet) 1 E ach Tablet Hydrocodone Bit/Acetaminophen (Eclectic 5-325 Tablet) 1 Each Tablet Yes 1 Every 8 Hours as needed for Pain [facility] Levothyroxine Sodium 100 Mcg Vial Levothyroxine Sodium 100 Mcg Vial Yes 150 Daily [facility] Metoprolol Tartrate 25 Mg Tablet Metoprolol Tartrate 25 Mg Tablet Yes 25 Twice A Day [facility] Omeprazole 20 Mg Capsule. Omeprazole 20 Mg Capsule. Yes 20 Daily [facility] Temazepam 15 Mg Capsule Temazepam 15 Mg Capsule Yes 15 Bedtime [facility] Dicyclomine Hcl Dicyclomine Hcl 2018-09-17 00:00:00 No 10 [facility] Gabapentin Gabapentin 2018-09-17 00:00:00 No 300 [facility] Losartan/Hydrochlorothiazide (Hyzaar 100-12.5 Tablet) 1 Each TABLET Losartan/Hydrochlorothiazide (Hyzaar 100-12.5 Tablet) 1 Each TABLET 2018-09-17 00:00:00 No 1 [facility] Ondansetron (Ondansetron Odt) 8 Mg TAB.RAPDIS Ondanset kvng (Ondansetron Odt) 8 Mg TAB.RAPDIS 2018-09-17 00:00:00 No 8 [facility] Pantoprazole Sodium (Protonix) 40 Mg SUSPDR.PKT Pantop razole Sodium (Protonix) 40 Mg SUSPDR.PKT 2018-09-17 00:00:00 No 40 [facility] Ranitidine Hcl Ranitidine Hcl 2018-09-17 00:00:00 No 150 [facility] Aspirin (Aspirin Chew) 81 Mg CHEW Aspirin (Aspirin Chew) 81 Mg C HEW 2017-10-05 00:00:00 No 81 [facility] Dexlansoprazole (Dexilant) 60 Mg CAP. Dexlansopra zole (Dexilant) 60 Mg CAP. 2017-10-05 00:00:00 No 60 [facility] Gabapentin Gabapentin 2017-10-05 00:00:00 No 300 [facility] Insulin Glargine (Lantus) 100 Units/Ml ML Insulin Glar gine (Lantus) 100 Units/Ml ML 2017-10-05 00:00:00 No 25 [facility] Levothyroxine Sodium Levothyroxine Sodium 2017-10-05 00:00:00 No 100 [facility] Losartan/Hydrochlorothiazide (Losartan-Hctz 100-12.5 M g Tab) 1 Each TABLET Losartan/Hydrochlorothiazide (Losartan-Hctz 100-12.5 Mg Tab) 1 Each TABLET 2017-10-05 00:00:00 No [facility] Metformin Hcl Metformin Hcl 2017-10-05 00:00:00 No 500 [facility] Temazepam Temazepam 2017-10-05 00:00:00 No [facility] Temazepam (Restoril) 15 Mg CAPSULE Temazepam (Restoril) 15 Mg CA PSULE 2017-10-05 00:00:00 No 15 [facility] Clonazepam Clonazepam 2017-10-03 00:00:00 No .5 [facility] Clopidogrel Bisulfate (Plavix) 75 Mg TABLET Clopidogre l Bisulfate (Plavix) 75 Mg TABLET 2017-10-03 00:00:00 No 75 [facility] Gabapentin Gabapentin 2017-10-03 00:00:00 No 300 [facility] Hydrocodone Bit/Acetaminophen (Eclectic 5-325 Tablet) 1 E ach TABLET Hydrocodone Bit/Acetaminophen (Eclectic 5-325 Tablet) 1 Each TABLET 2017-10-03 00: 00:00 No 1 [facility] Hydrocodone Bit/Acetaminophen (Eclectic 5-325 Tablet) 1 E ach TABLET Hydrocodone Bit/Acetaminophen (Eclectic 5-325 Tablet) 1 Each TABLET 2017-10-03 00: 00:00 No 1 [facility] Hydrocodone Bit/Acetaminophen (Hydrocodo n-Acetaminoph 7.5-325) 1 Each Tablet, Oral Hydrocodone Bit/Acetaminophen (Hydrocodo n-Acetaminoph 7.5-325) 1 Each Tablet, Oral 2016-06-21 00:00:00 No As Needed [facility] Hydrocodone Bit/Acetaminophen (Eclectic 7.5-325 Tablet) 1 Each Tablet, 1 Ea Oral Hydrocodone Bit/Acetaminophen (Eclectic 7.5-325 Tablet) 1 Each Tablet, 1 Ea Oral 2016-06-21 00:00:00 No 1 Every 4 Hours as nee ded for Pain [facility] Hydrocodone Bit/Acetaminophen (Hydrocodon-Acetaminoph 7.5-325) 1 Each TABLET Hydrocodone Bit/Acetaminophen (Hydrocodon-Acetaminoph 7.5-325) 1 Each TABLET 2016-06-21 00:00:00 No [facility] Hydrocodone Bit/Acetaminophen (Eclectic 7.5-325 Tablet) 1 Each TABLET Hydrocodone Bit/Acetaminophen (Eclectic 7.5-325 Tablet) 1 Each TABLET 00:00:00 No 1 [facility] Ropinirole , 2 Mg Oral Ropinirole , 2 Mg Oral 2014-01-01 00:00:00 No 2 Daily [facility] Ropinirole Ropinirole 2014-01-01 00:00:00 No 2 [facility] Erythromycin Base (Erythromycin) 3.5 Gm OINT..GM. Eryt hromycin Base (Erythromycin) 3.5 Gm OINT..GM. 2013-06-04 00:00:00 No [facility] Glyburide, Micro/Metformin Hcl (Glyburid-Metformin 5-5 00 Mg Tb) 1 Each TABLET Glyburide, Micro/Metformin Hcl (Glyburid-Metformin 5-500 Mg Tb) 1 Each TABLET 2013-06-04 00:00:00 No 2 [facility] Insulin Glargine,Hum.rec.anlog (Lantus) 100 Unit/1 Ml VIAL Insulin Glargine,Hum.rec.anlog (Lantus) 100 Unit/1 Ml VIAL 2013-06-04 00:00:0 0 No 50 [facility] Iron Iron 2013-06-04 00:00:00 No 5 [facility] Ropinirole Hcl (Requip) 2 Mg TABLET Ropinirole Hcl (Requip) 2 Mg TABLET 2013-06-04 00:00:00 No 2 [facility] Vital Signs Vital Name Observation Time Observation Value Comments Source Body Temperature 2019-08-17 12:23:00 97.8 [degF] [facility] Weight 2019-08-16 00:44:00 153.44 [lb_av] [facility] BMI (Body Mass Index) 2019-08-16 00:44:00 32.1 kg/m2 [facility] Procedures Procedure Date / Time Performed Performing Clinician Sourc e Thoracentesis with ultrasound guidance 2019-08-15 00:00:00 [facility] X-ray of chest, single view 2019-08-15 00:00:00 [facility] X-ray of chest, two views 2019-08-13 00:00:00 [facility] Computed tomography of brain without radiopaque contrast 2019-07 00:00:00 [facility] Computed tomography, lower extremity; without contrast material 2017-08-09 00:00:00 AUSTIN JACOBSEN [facility] TRANSFUSE NONAUT RED BLOOD CELLS IN PERIPH VEIN, PERC 06-03 00:00:00 ROSEANNE MARRERO [facility] INSERTION OF INTRAMED FIX INTO R UP FEMUR, PERC APPROACH 201 11-15-16 00:00:00 KAM ARRINGTON [facility] Computed tomography of brain without radiopaque contrast 201 11-16-11 00:00:00 LLUVIA DIEGO [facility] MRI jnt of lwr extre w/o dye 2017-05-28 00:00:00 LLUVIA DIEGO [facility] Magnetic resonance imaging of pelvis without contrast 05-28 00:00:00 JOHNATHON LLUVIA [facility] Plan of Care Planned Activity Planned Date Details Comments Source Future Scheduled Test [code = ] Future Scheduled Test [code = ] Future Scheduled Test [code = ] Future Scheduled Test [code = ] Goal Patient referral [code = 4671771 ] [facility] Goal Patient referral [code = 9414287 ] [facility] Goal Patient referral [code = 9869889 ] [facility] Goal Patient referral [code = 0150036 ] [facility] Goal Patient referral [code = 9951325 ] [facility] Goal Patient referral [code = 4163704 ] [facility] Instructions Seizures [facility] Encounters Start Date/Time End Date/Time Encounter Type Admission Type [facility] Care Department Encounter ID Source 2019-07-31 08:20:00 2019-08-17 14:44:00 Discharged Inpatient 1 ELIDA FLORES, HIRALCHANI [facility] [id number] [facility] 2018-08-06 17:47:00 2018-08-08 13:03:00 Discharged Inpatient (obs) 1 JOSE NELSON [facility] [id number] [facility] 2017-08-09 20:47:00 2017-08-10 00:46:00 Departed Emergency Room ER AUSTIN JACOBSEN [facility] [id number] [facility] 2017-05-28 21:54:00 2017-06-07 16:53:00 Discharged Inpatient ER ROSEANNE MARRERO [facility] [id number] [facility] Results Test Description Test Time Test Comments Results Result Comments Source Capillary blood glucose measurement by glucometer (mas s/volume) 2019-08-17 11:11:00 Test Item Bedside Glucose (test code = 43655-6) 221 [facility] automated count (number/volume)2019-08-17 05:30:00* Test Item Value Reference Range Interpretation Comments White Blood Count (test code = 6690-2) 7.97 [facility] erythrocytes automated count (number/volume)2019-08-17 05:30:00* Test Item Value Reference Range Interpretation Comments Red Blood Count (test code = 789-8) 3.03 [facility] hemoglobin measurement (moles/volume)2019-08-17 05:30:00* Test Item Value Reference Range Interpretation Comments Hemoglobin (test code = 57118-7) 8.8 [facility] hematocrit (volume fraction)2019-08-17 05:30:00* Test Item Value Reference Range Interpretation Comments Hematocrit (test code = 4544-3) 27.6 [facility] erythrocyte mean corpuscular [id number] 05:30:00* Test Item Value Reference Range Interpretation Comments Mean Corpuscular Volume (test code = 787-2) 91.1 [facility] eryth[facility] mean corpuscular hemoglobin (mass per erythrocyte)2019-08-17 05:30:00* Test Item Value Reference Range Interpretation Comments Mean Corpuscular Hemoglobin (test code = 785-6) 29.0 [facility] mean corpuscular hemoglobin concentration measurement (mass/volume)2019-08-17 05:30:00* Test Item Value Reference Range Interpretation Comments Mean Corpuscular Hemoglobin Concent (test code = 786-4) 31.9 [facility] HospitalRDW [id number]-[id number] 05:30:00* Test Item Value Reference Range Interpretation Comments Red Cell Distribution Width (test code = 78245-7) 13.6 [facility] blood platelet count (count/volume)2019-08-17 05:30:00* Test Item Value Reference Range Interpretation Comments Platelet Count (test code = 777-3) 314 [facility] segmented neutrophil count as percentage of total [id number] 05:30:00* Test Item Value Reference Range Interpretation Comments Neutrophils (%) (Auto) (test code = 61872-3) 54.1 [facility] lymphocyte count as percentage ot total posnmhnzql7080-87-88 05:30:00* Test Item Value Reference Range Interpretation Comments Lymphocytes (%) (Auto) (test code = 736-9) 35.[address] [facility] monocyte count as percentage of total [id number] 05:30:00* Test Item Value Reference Range Interpretation Comments Monocytes (%) (Auto) (test code = 5905-5) 7.7 [facility] blood eosinophil count as percentage of total [id number] 05:30:00* Test Item Value Reference Range Interpretation Comments Eosinophils (%) (Auto) (test code = 713-8) 2.0 [facility] basophil count as percentage of total [id number] 05:30:00* Test Item Value Reference Range Interpretation Comments Basophils (%) (Auto) (test code = 706-2) 0.3 [facility] HospitalFluoroscopic procedure less than one hour [id number] 05:30:00* Test Item Value Reference Range Interpretation Comments IM GRANULOCYTES % (test code = IM GRANULOCYTES %) 0.5 [facility] neutrophil count 2019-08-17 05:30:00* Test Item Value Reference Range Interpretation Comments Neutrophils # (Auto) (test code = 751-8) 4.3 [facility] lymphocytes count (number/volume) 2019-08-17 05:30:00* Test Item Value Reference Range Interpretation Comments Lymphocytes # (Auto) (test code = 84923-5) 2.[address] [facility] monocytes automated count (number/volume)2019-08-17 05:30:00* Test Item Value Reference Range Interpretation Comments Monocytes # (Auto) (test code = 742-7) 0.6 [facility] blood eosinophil count 2019-08-17 05:30:00* Test Item Value Reference Range Interpretation Comments Eosinophils # (Auto) (test code = 711-2) 0.2 [facility] HospitalAutom[facility] blood basophil count (count/volume)2019-08-17 05:30:00* Test Item Value Reference Range Interpretation Comments Basophils # (Auto) (test code = 704-7) 0.0 [facility] HospitalFluoroscopic procedure less than one hour [id number] 05:30:00* Test Item Value Reference Range Interpretation Comments Absolute Immature Granulocyte (auto (constantino t code = Absolute Immature Granulocyte (auto) 0.04 [facility] sodium measurement (moles/volume)2019-08-17 05:30:00* Test Item Value Reference Range Interpretation Comments Sodium Level (test code = 2951-2) 137 [facility] plasma potassium measurement (moles/volume)2019-08-17 05:30:00* Test Item Value Reference Range Interpretation Comments Potassium Level (test code = 2823-3) 3.3 [facility] or plasma chloride measurement (moles/volume)2019-08-17 05:30:00* Test Item Value Reference Range Interpretation Comments Chloride Level (test code = 2075-0) 95 [facility] or plasma carbon dioxide, total measurement (moles/volume)2019-08-17 05:30:00* Test Item Value Reference Range Interpretation Comments Carbon Dioxide Level (test code = 2028-9) 33 [facility] or plasma anion [id number] 05:30:00* Test Item Value Reference Range Interpretation Comments Anion Gap (test code = 66573-4) 12.3 [facility] or plasma urea nitrogen measurement (mass/volume)2019-08-17 05:30:00* Test Item Value Reference Range Interpretation Comments Blood Urea Nitrogen (test code = 3094-0) 15 [facility] or plasma creatinine measurement (mass/volume)2019-08-17 05:30:00* Test Item Value Reference Range Interpretation Comments Creatinine (test code = 2160-0) 0.68 [facility] or plasma urea nitrogen/creatinine mass [id number] 05:30:00* Test Item Value Reference Range Interpretation Comments BUN/Creatinine Ratio (test code = 3097-3) 22 [facility] HospitalEstimated glomerular filtration rate (GFR) [id number] 05:30:00* Test Item Value Reference Range Interpretation Comments Estimat Glomerular Filtration Rate (test code = 519045734) > 60 [facility] HospitalGlucose qxzghebjwcu2989-00-00 05:30:00* Test Item Value Reference Range Interpretation Comments Glucose Level (test code = XPS9865) 98 [facility] or plasma calcium measurement (mass/volume)2019-08-17 05:30:00* Test Item Value Reference Range Interpretation Comments Calcium Level (test code = 38942-3) 8.7 [facility] or plasma total bilirubin measurement (mass/volume)2019-08-17 05:30:00* Test Item Value Reference Range Interpretation Comments Total Bilirubin (test code = 1975-2) 0.9 [facility] HospitalFluoroscopic procedure less than one hour [id number] 05:30:00* Test Item Value Reference Range Interpretation Comments Aspartate Amino Transf (AST/SGOT) (test code = Aspartate Amino Transf (AST/SGOT)) 15 [facility]rum or plasma alanine aminotransferase measurement (enzymatic activity/volume)2019-08-17 05:30:00* Test Item Value Reference Range Interpretation Comments Alanine Aminotransferase (ALT/SGPT) (test code = 1742-6) 14 [facility]ererum or plasma protein measurement (mass/volume)2019-08-17 05:30:00* Test Item Value Reference Range Interpretation Comments Total Protein (test code = 2885-2) 5.7 [facility] or plasma albumin measurement (mass/volume)2019-08-17 05:30:00* Test Item Value Reference Range Interpretation Comments Albumin (test code = 1751-7) 2.6 [facility] HospitalPlasma globulin measurement (mass/volume) 2019-08-17 05:30:00* Test Item Value Reference Range Interpretation Comments Globulin (test code = 29213-6) 3.1 [facility] or plasma albumin/globulin mass [id number] 05:30:00* Test Item Value Reference Range Interpretation Comments Albumin/Globulin Ratio (test code = 1759-0) 0.8 [facility]ererum or plasma alkaline phosphatase measurement (enzymatic activity/volume)2019-08-17 05:30:00* Test Item Value Reference Range Interpretation Comments Alkaline Phosphatase (test code = 6768-6) 121 [facility] HospitalCHEST SINGLE (PORTABLE)2019-08-16 06:17:00 [facility] [address] [place] [address] Patient Name: TALA ROMO MR #: [id number] : 1940 Age/Sex: 78/F Req #: [id number] Adm Physician: ROSEANNE MARRERO Ordered by: ELIDA FLORES, ROSEANNE FLORES Report #: [id number] Location: MED/SURG Room/Bed: [facility] Pro cedure: [id number] DX/CHEST SINGLE (PORTABLE) Exam Date: 08/16/19 Exam Time: 0600 REPORT STATUS: Signed EXAMINATION: CHEST SINGLE (PORTABLE) INDICATION: CHF [id number] 0600 Y COMPARISON: 08/15/2019 FINDINGS: AP view TUBES and LINES: None. LUNGS: Unchanged central pulmonary venous congestion. Interval development of ill-defined right lower lung ai rspace opacity. PLEURA: Slight interval decrease in right pleural effusion . Unchanged small left pleural effusion. HEART AND MEDIASTINUM: Stable c ardiomegaly. BONES AND SOFT TISSUES: No acute osseous lesion. Soft ti ssues are unremarkable. UPPER ABDOMEN: No free air under the diaphragm. IMPRESSION: 1. Unchanged cardiomegaly with central pulmonary venous c ongestion. 2. Slight interval decrease in size of the small right pleural e ffusion. Unchanged small left pleural effusion. 3. Interval development o f right lower lung zone airspace opacity, likely atelectasis. Pneumonia may ap pear similar. Signed by: Jose Hamilton MD on 08/16/2019 6:19 AM D ictated By: JOSE HAMILTON MD 8 COPY TO: ROSEANNE YORK Serum or plasma magnesium measurement (mass/volume) 2019-08-16 05:15:00* Test Item Value Reference Range Interpretation Comments Magnesium Level (test code = 38525-9) 1.5 [facility] Iym-dFkx0143-03-02 05:15:00* Test Item Value Reference Range Interpretation Comments B-Type Natriuretic Peptide (test code = 58125-0) 439.3 [facility] lactoferrin azhahfspp0518-38-74 02:55:00* Test Item Value Reference Range Interpretation Comments Stool Lactoferrin (LAB) (test code = 28650-3) POSITIVE [facility] JCSPRRO2161-83-01 15:32:00 [place] [address] Patient Name: TALA ROMO MR #: [id number] : 1940 Age/Sex: 78/F Req #: [id number] Adm Physician: ROSEANNE MARRERO Ordered by: SANDRA SEXTON MD Report #: [id number] Location: MED/SURG Room/Bed: [facility] Procedure: [id number] DX /IR CONSULT Exam Date: Exam Time: REPORT STATUS: Signed PROCEDURE: Ultrasound-guid ed thoracentesis Procedural Personnel Attending physician(s): Bety Sifuentes MD Fellow physician(s): None Resident physician(s): None Advanced practice provider(s): None Pre-procedure diagnosis: Right pleural effusion Post- procedure diagnosis: Same Indication: Pleural effusion with compromised respir ation Additional clinical history: None Complications: No immediate compl ications. IMPRESSION: Ultrasound-guided thoracentesis with drainage of 1000 mL of serous fluid. Plan: Resume care by clinical team. PROCEDURE SUMMAR Y: - Limited thoracic ultrasound - Ultrasound-guided thoracentesis - Addit ional procedure(s): None PROCEDURE DETAILS: Pre-procedure Consent: I nformed consent for the procedure including risks, benefits and alternatives w as obtained and time-out was performed prior to the procedure. Preparation: e site was prepared and draped using maximal sterile barrier technique includi ng cutaneous antisepsis. Anesthesia/sedation Level of anesthesia/sedation : No sedation Anesthesia/sedation administered by: Not applicable Total intr a-service sedation time (minutes): NA Limited thoracic ultrasound Limited thoracic ultrasound was performed using a curved transducer. A safe window for thoracentesis was identified. Left hemithorax findings: Not investigated Right hemithorax findings: Moderate pleural effusion Thoracentesis Local anesthesia was administered. The pleural space was accessed under real-time ul trasound guidance and fluid return confirmed position. The fluid was drained. The catheter was removed, and a sterile bandage was applied. Catheter placed: 5F Yueh Post-drainage hemithorax findings: Trace pleural effusion Additi onal Details Additional description of procedure: None Equipment details: No ne Specimens removed: Pleural fluid Estimated blood loss (mL): Less than 10 Standardized report: SIR_Thoracentesis_v3 Attestation Signer name: Yana Sifuentes MD I attest that I was present for the entire procedure. I reviewed e stored images and agree with the report as written. Signed by: Alex Sifuentes MD on 08/15/2019 3:33 PM Dictated By: BETY SIFUENTES MD Electronical ly Signed By: BETY SIFUENTES MD on 08/15/19 1533 Transcribed By: EFREM on 0 1533 COPY TO: SANDRA SEXTON MD THORACENTESIS/IMAGE GUIDED 2019-08-15 15:32:00 [facility] [address] [place] [address] Patient Name: TALA ROMO MR #: [id number] : 1940 Age/Sex: 78/F Req #: [id number] Adm Physician: ROSEANNE MARRERO Ordered by: SANDRA SEXTON MD Report #: [id number] Location: MED/SURG Room/Bed: [facility] Procedure: [id number] US /THORACENTESIS/IMAGE GUIDED Exam Date: 08/15/19 Exam Time: 1500 REPORT STATUS: Signed PROCEDURE: Ultrasound-guided thoracentesis Procedural Personnel Attending physician(s): Bety Sifuentes MD Fellow physician(s): None Resident physician (s): None Advanced practice provider(s): None Pre-procedure diagnosis: Ri ght pleural effusion Post-procedure diagnosis: Same Indication: Pleural effu trev with compromised respiration Additional clinical history: None Compl ications: No immediate complications. IMPRESSION: Ultrasound-guided th oracentesis with drainage of 1000 mL of serous fluid. Plan: Resume ca re by clinical team. PROCEDURE SUMMARY: - Limited thoracic ultrasound - Ultrasound-gu ided thoracentesis - Additional procedure(s): None PROCEDURE DETAILS: Pre-procedure Consent: Informed consent for the procedure including risks, b enefits and alternatives was obtained and time-out was performed prior to the procedure. Preparation: The site was prepared and draped using maximal sterile barrier technique including cutaneous antisepsis. Anesthesia/sedation Level of anesthesia/sedation: No sedation Anesthesia/sedation administered by: Not applicable Total intra-service sedation time (minutes): NA Limited t horacic ultrasound Limited thoracic ultrasound was performed using a curved tr ansducer. A safe window for thoracentesis was identified. Left hemithorax f indings: Not investigated Right hemithorax findings: Moderate pleural effusion Thoracentesis Local anesthesia was administered. The pleural space was a ccessed under real-time ultrasound guidance and fluid return confirmed positi on. The fluid was drained. The catheter was removed, and a sterile bandage was applied. Catheter placed: 5F Wyatt Post-drainage hemithorax findings: Trace pleural effusion Additional Details Additional description of procedure: None Equipment details: None Specimens removed: Pleural fluid Estimated bl ood loss (mL): Less than 10 Standardized report: SIR_Thoracentesis_v3 Att estation Signer name: Bety Sifuentes MD I attest that I was present for the ent roz procedure. I reviewed the stored images and agree with the report as writt en. Signed by: Bety Sifuentes MD on 08/15/2019 3:33 PM Dictated By: BETY SIFUENTES MD 1533 Transc ribed By: EFREM on 08/15/19 1533 COPY TO: SANDRA SEXTON MD CHEST SINGLE (NOT PORTABLE)2019-08-15 15:31:00 [place] [address] Patient Name: TALA ROMO MR #: [id number] : 1940 Age/Sex: 78/F Req #: [id number] Adm Physician: ROSEANNE MARRERO Ordered by: BETY SIFUENTES MD Report #: [id number] Location: MED/SURG Room/Bed: [facility] Procedure: [id number] DX/ CHEST SINGLE (NOT PORTABLE) Exam Date: 08/15/19 Exam Time: 1517 REPORT STATUS: Signed EXAMINATION: CHEST SINGLE (NOT PORTABLE) INDICATION: Postprocedural COMPARISON: Chest radiograph of earlier the same day FINDINGS: LINES/TUBES:EKG leads overlie the chest. LUNGS:Interval improvement in lung aeration. Bibasilar patchy opacities. PLEURA:Interval decrease in right pleural effusion, now trace. No pneumothorax status post right thoracentesis. MEDIASTINUM:The cardiomediastinal silhouette appears unchanged in size and shape. BONES/SOFT TISSUES:No acute osseous injury. ABDOMEN:No free air under the diaphragm. IMPRESSION: No pneumothorax status post right thoracentesis. Trace residual right pleural effusion. Bibasilar patchy opacities, most likely subsegmental atelectasis. Signed by: Bety Sifuentes MD on 08/15/2019 3:32 PM Dictated By: BETY SIFUENTES MD 1532 Transcribed By: EFREM on 08/15/19 1532 COPY TO: BETY SIFUENTES MD Specimen source identification of body fluid 2019-08-15 15:00:00* Test Item Value Reference Range Interpretation Comments Body Fluid Type (test code = 96011-7) PLEURAL [facility] of body fluid 2019-08-15 15:00:00* Test Item Value Reference Range Interpretation Comments Body Fluid Color (test code = 6824-7) YELLOW [facility] Hospital[facility]ination of appearance of body fluid 2019-08-15 15:00:00* Test Item Value Reference Range Interpretation Comments Body Fluid Appearance (test code = 9335-1) SL.CLOUDY [facility] HospitalManual body fluid leukocytes count (number/volume)2019-08-15 15:00:00* Test Item Value Reference Range Interpretation Comments Body Fluid WBC (test code = 6743-9) [address] [facility] body fluid erythrocytes count (number/volume)2019-08-15 15:00:00* Test Item Value Reference Range Interpretation Comments Body Fluid RBC (test code = 6741-3) 46 [facility]Man[facility] body fluid neutrophils/100 vxmxgxzyvu3847-23-45 15:00:00* Test Item Value Reference Range Interpretation Comments Body Fluid Neutrophils (test code = 42999-4) 2 [facility] fluid lymphocyte eypwx1552-42-08 15:00:00* Test Item Value Reference Range Interpretation Comments Body Fluid Lymphocytes (test code = 50578086) 68 [facility] fluid monocyte exnbc5414-51-67 15:00:00* Test Item Value Reference Range Interpretation Comments Body Fluid Monocytes (test code = 12516-2) 3 [facility] other cells manual count 2019-08-15 15:00:00* Test Item Value Reference Range Interpretation Comments Body Fluid Other Cells (test code = 819265368) 27 [facility] HospitalTotal cell stmte8168-03-04 15:00:00* Test Item Value Reference Range Interpretation Comments Body Fluid Total Cells Counted (test code = 01148-6) 100 [facility] fluid protein measurement (mass/volume)2019-08-15 15:00:00* Test Item Value Reference Range Interpretation Comments Body Fluid Total Protein (test code = 2881-1) 1.7 [facility] fluid lactate dehydrogenase measurement (enzymatic activity/volume)2019-08-15 15:00:00* Test Item Value Reference Range Interpretation Comments Body Fluid Lactate Dehydrogenase (test code = 367237097) 71 [facility] HospitalClostridium difficile A and B toxin assay 2019-08-15 11:52:00* Test Item Value Reference Range Interpretation Comments Clostridium Difficile Toxin A & B (test code = 016431529) NEGATIVE [facility])2019-08-15 05:59:00 [facility] [address] [place] [address] Patient Name: TALA ROMO MR #: [id number] : 1940 Age/Sex: 78/F Req #: [id number] Adm Physician: ROSEANNE MARRERO Ordered by: ELIDA FLORES, ROSEANNE FLORES Report #: [id number] Location: MED/SURG Room/Bed: [facility] Pro cedure: [id number] DX/CHEST SINGLE (PORTABLE) Exam Date: 08/15/19 Exam Time: 050 REPORT STATUS: Signed EXAMINATION: CHEST SINGLE (PORTABLE) INDICATION: pleural effusions. [id number] Y COMPARISON: 08/14/2019 FINDINGS: AP view TUBES and LINES: None. LUNGS: Interval increase in right lung airspace disease. Persistent pulmonary edema. PLE URA: Unchanged bilateral pleural effusions, right greater than left. HEART AND MEDIASTINUM: Unchanged. BONES AND SOFT TISSUES: No acute osseous lesion. Soft tissues are unremarkable. UPPER ABDOMEN: No free air under the diaphragm. IMPRESSION: 1. Interval increase in right lung airsp rick disease which may reflect atelectasis and/or pneumonia. 2. Unchanged pul monary edema. 3. Unchanged pleural effusions, right greater than left. Signed by: Jose Hamilton MD on 08/15/2019 6:01 AM Dictated By: JOSE DELACRUZ MD 0 Transcri bed By: EFREM on 08/15/19600 COPY TO: ROSEANNE MARRERO CHEST SINGLE (PORTABLE)2019-08-14 10:49:00 [place] [address] Patient Name: TALA ROMO MR #: [id number] : 1940 Age/Sex: 78/F Req #: [id number] Adm Physician: ROSEANNE MARRERO Ordered by: SANDRA SEXTON MD Report #: [id number] Location: MED/SURG Room/Bed: [facility] Procedure: [id number] DX /CHEST SINGLE (PORTABLE) Exam Date: 08/14/19 Exam Ti me: 1018 REPORT STATUS: Signed E XAMINATION: CHEST SINGLE (PORTABLE) INDICATION: Shortness of breath COMPARISON: Chest radiograph 08/13/2019. FINDINGS: TUBES and LINES: None. LUNGS/PLEURA: Slightly decreased aeration of the lungs. Persist ent perihilar fullness and indistinctness of the pulmonary vasculature. Bilate ral hazy and consolidative opacities in the lower lung zones. Moderate to larg e right and moderate left pleural effusions. HEART AND MEDIASTINUM: The cardiomediastinal silhouette is obscured by adjacent opacity. BONES AND SOFT TISSUES: No acute osseous lesion. Soft tissues are unremarkable. UPPER ABDOMEN: No free air under the diaphragm. IMPRESSION: Persis tent pulmonary edema with slightly decreased interval lung aeration. Moderate to large right and moderate left bilateral pleural effusions with lower lung z one opacities, likely atelectasis. Superimposed infection is possible in the [facility] Signed by: Dr. Lisa Rodarte MD on 08/14/2019 10: 59 AM Dictated By: LISA RODARTE MD 105 Transcribed By: EFREM on 08/14/19 105 COPY TO: SANDRA KIDD MD Serum or plasma iron measurement (mass/volume)2019-08-14 05:25:00* Test Item Value Reference Range Interpretation Comments Iron Level (test code = 2498-4) 49 [facility] or plasma iron binding capacity measurement (mass/volume)2019-08-14 05:25:00* Test Item Value Reference Range Interpretation Comments Total Iron Binding Capacity (test code = 2500-7) 291 [facility]ererum or plasma iron saturation measurement (mass fraction)2019-08-14 05:25:00* Test Item Value Reference Range Interpretation Comments Percent Iron Saturation (test code = 2502-3) 17 [facility]rum or plasma transferrin measurement (mass/volume)2019-08-14 05:25:00* Test Item Value Reference Range Interpretation Comments Transferrin (test code = 3034-6) 208 [facility] Centererum or plasma ferritin measurement (mass/volume)2019-08-14 05:25:00* Test Item Value Reference Range Interpretation Comments Ferritin (test code = 2276-4) 89.38 [facility] cobalamin (vitamin B12) measurement (mass/volume)2019-08-14 05:25:00* Test Item Value Reference Range Interpretation Comments Vitamin B12 Level (test code = 71591-3) 695 [facility]CHEST 2 MATGY3170-41-57 18:53:00 [facility] [address] [place] [address] Patient Name: TALA ROMO MR #: [id number] : 1940 Age/Sex: 78/F Req #: [id number] Adm Physician: ROSEANNE MARRERO Ordered by: ELIDA FLORES, ROSEANNE FLORES Report #: [id number] Location: MED/SURG Room/Bed: [facility] Pro cedure: [id number] DX/CHEST 2 VIEWS Exam Date: 08/13/19 Exam Time: 1800 REPORT STATUS: S igned EXAMINATION: CHEST 2 VIEWS INDICATION: Shortness of breath COMPARISON: Multiple prior chest x-ray examinations most recent dated 2019. FINDINGS: PA and lateral views TUBES and LINES: None. LUNGS/PLEURA: There is perihilar interstitial opacities, consistent with interstitial edema.. Increased bibasilar opacity is compatible with moder ate to large pleural effusions with associated atelectasis. HEART AND MED IASTINUM: The cardiomediastinal silhouette is obscured by adjacent opacity. BONES AND SOFT TISSUES: No acute osseous lesion. Soft tissues are un remarkable. UPPER ABDOMEN: No free air under the diaphragm. IMPRES TREV: Moderate to large bilateral pleural effusions with associated atelec tasis. Mild pulmonary edema. Signed by: Nino Sorensen MD on 2019 6:56 PM Dictated By: NINO SORENSEN MD 55 Transcribed By: EFREM on 08/13/191855 COPY TO: ROSEANNE MARRERO BA. SWALLOW 2019-08-12 09:41:00 [place] [address] Patient Name: TALA ROMO MR #: [id number] : 1940 Age/Sex: 78/F Req #: [id number] Adm Physician: ROSEANNE MARRERO Ordered by: SANDRA SEXTON MD Report #: [id number] Location: MED/SURG Room/Bed: [facility] Procedure: [id number] DX /MODIFIED BA. SWALLOW Exam Date: 08/11/19 Exam Time: 1200 REPORT STATUS: Signed EXAM: MODIFIED BA. SWALLOW DATE: 08/11/2019 2:33 PM INDICATION: Aspiration Fluoroscopy Time: 1.7 min. Reference Air Kerma (Ka, r): 5.53 mGy. FINDINGS/ASPIRATION: Modified barium swallow was performed by the speech pa thologist. The radiologist was not present for the examination. Provided image s demonstrate laryngeal penetration with at least one episode of trace aspirat ion. Please refer to speech pathology notes for further details. Signed b y: Dr. Luis Andrade MD on 08/12/2019 9:44 AM Dictated By: LUIS ANDRADE MD 3 Transcribed By: JADE GARDNER on 08/12/19943 COPY TO: SANDRA SEXTON MD Fluoroscopic procedure less than one hour haytgpmg3509-28-19 01:43:00* Test Item Value Reference Range Interpretation Comments Coronavirus (PCR) (test code = Coronavirus (PCR)) NOT DETECTED [facility]rum or plasma creatine kinase measurement (enzymatic activity/volume)2019-08-11 15:40:00* Test Item Value Reference Range Interpretation Comments Creatine Kinase (test code = 2157-6) 38 [facility] Centererum or plasma creatine kinase MB measurement (mass/volume)2019-08-11 15:40:00* Test Item Value Reference Range Interpretation Comments Creatine Kinase MB (test code = 33615-6) 1.90 [facility] HospitalTroponin I measurement by highly sensitive enzyme ddlosifsnpk4928-68-25 15:40:00* Test Item Value Reference Range Interpretation Comments Troponin I (test code = 06298-2) 0.024 [facility]2019-08-08 13:17:00 [place] [address] Patient Name: TALA ROMO MR #: [id number] : 1940 Age/Sex: 78/F Req #: [id number] Adm Physician: ROSEANNE MARRERO Ordered by: ELIDA FLORES, ROSEANNE FLORES Report #: [id number] Location: MED/SURG Room/Bed: [facility] Procedure: [id number] DX/CHEST SINGLE (PORTABLE) Exam Date: 08/08/19 Exam Time: 1040 REPORT STATUS: Signed EXAMINATION: CHEST SINGLE (PORTABLE) INDICATION: Pneumonia COMPARISON: Chest radiograph of 08/05/2019 F INDINGS: LINES/TUBES:EKG leads overlie the chest. LUNGS:The lungs are moderately inflated. Perihilar interstitial opacities and bronchial wall thick ening. Mild bibasilar patchy opacities. PLEURA:No pleural effusion or pneum othorax. MEDIASTINUM:The cardiomediastinal silhouette appears unchanged in size and shape. BONES/SOFT TISSUES:No acute osseous injury. ABDOMEN: No free air under the diaphragm. IMPRESSION: Perihilar interstitial o pacities and bronchial wall thickening could represent atypical pneumonia in t he proper clinical setting. Signed by: Bety Sifuentes MD on 08/08/2019 1:20 PM Dictated By: BETY SIFUENTES MD 1320 COPY TO: ROSEANNE YORK Urine color uuqvdrrloddsv2368-72-33 20:20:00* Test Item Value Reference Range Interpretation Comments Urine Color (test code = 5778-6) YELLOW [facility] HospitalU[facility] gaablrd7350-34-82 20:20:00* Test Item Value Reference Range Interpretation Comments Urine Clarity (test code = 74279-3) HAZY [facility] Centerpecific gravity of Urine by Test strip 2019-08-05 20:20:00* Test Item Value Reference Range Interpretation Comments Urine Specific Mobile (test code = 5811-5) 1.025 [facility] pH measurement by automated test mjohd8115-35-96 20:20:00* Test Item Value Reference Range Interpretation Comments Urine pH (test code = 34148-2) 6 [facility] leukocyte esterase detection by mnfcfngf0565-64-11 20:20:00* Test Item Value Reference Range Interpretation Comments Urine Leukocyte Esterase (test code = 5799-2) LARGE [facility] HospitalUrine nitrite jsztvtiic6466-77-49 20:20:00* Test Item Value Reference Range Interpretation Comments Urine Nitrite (test code = 16246-6) NEGATIVE [facility] protein measurement by test strip (mass/volume)2019-08-05 20:20:00* Test Item Value Reference Range Interpretation Comments Urine Protein (test code = 5804-0) 1+ [facility] glucose yeaqtmked7736-02-64 20:20:00* Test Item Value Reference Range Interpretation Comments Urine Glucose (UA) (test code = 2349-9) 1+ [facility] Hospital[facility] ketones detection by automated test ijofx9154-00-41 20:20:00* Test Item Value Reference Range Interpretation Comments Urine Ketones (test code = 49460-7) NEGATIVE [facility] HospitalUrine urobilinogen measurement by test strip (mass/volume)2019-08-05 20:20:00* Test Item Value Reference Range Interpretation Comments Urine Urobilinogen (test code = 66509-3) 1 [facility] total bilirubin measurement (mass/volume)2019-08-05 20:20:00* Test Item Value Reference Range Interpretation Comments Urine Bilirubin (test code = 1978-6) NEGATIVE [facility] HospitalU[facility] erythrocytes myqlhmdnc2922-01-69 20:20:00* Test Item Value Reference Range Interpretation Comments Urine Blood (test code = 66415-9) 1+ [facility] HospitalAutomated urine sediment leukocyte count by microscopy (number/high power field)2019-08-05 20:20:00* Test Item Value Reference Range Interpretation Comments Urine WBC (test code = 5821-4) >50 [facility] HospitalErythrocytes detection in urine sediment by light qewpskhqmg8561-91-82 20:20:00* Test Item Value Reference Range Interpretation Comments Urine RBC (test code = 17270-5) 6-10 [facility] HospitalBacteria detection in urine sediment by light fenzxajqhy3127-51-42 20:20:00* Test Item Value Reference Range Interpretation Comments Urine Bacteria (test code = 41687-5) MODERATE [facility] HospitalEpithelial cells detection in urine sediment by light vsixqzeqom6927-06-87 20:20:00* Test Item Value Reference Range Interpretation Comments Urine Epithelial Cells (test code = 41010-8) NONE [facility] HospitalBlood vodxssq2722-07-54 18:24:00* Test Item Value Reference Range Interpretation Comments Blood Culture (test code = 10030161) NO GROWTH AFTER 5 DAYS, FINAL REPORT [facility] ([facility])2019-08-05 17:03:00 [facility] [address] [place] [address] Patient Name: TALA ROMO MR #: [id number] : 1940 Age/Sex: 78/F Req #: [id number] [facility] Physician: ROSEANNE MARRERO Ordered by: ELIDA FLORES, ROSEANNE FLORES Report #: [id number] Location: MED/SURG Room/Bed: [facility] Procedure: [id number] DX/CHEST SINGLE (PORTABLE) Exam Date: 08/05/19 Exam Time: 1620 REPORT STATUS: Signed EXAMINATION: CHEST SINGLE (PORTABLE) INDICATION: temperature. [id number] 1620 COMPARISON: 0 FINDINGS: AP view TUBES and LINES: None. LUNGS: Lung s are well inflated. No definite focal consolidation. Minimal bibasilar hazin ess. PLEURA: No pleural effusion or pneumothorax. HEART AND MEDIASTIN UM: The cardiomediastinal silhouette is unremarkable. BONES AND SOFT T ISSUES: No acute osseous lesion. Soft tissues are unremarkable. UPPER A BDOMEN: No free air under the diaphragm. IMPRESSION: Minimal bibasil ar haziness, likely subsegmental atelectasis. However, developing pneumonia ca nnot be entirely excluded in the appropriate clinical context. Signed by: Dr. Zakiya Contreras MD on 08/05/2019 5:05 PM Dictated By: ZAKIYA CONTRERAS MD 04 Transcribed By: EFREM on 08/05/191704 COPY TO: ROSEANNE MARRERO Fluoroscopic procedure less than one hour ytkhjtop2808-38-49 04:30:00* Test Item Value Reference Range Interpretation Comments Hemoglobin A1c Percent (test code = Hemoglobin A1c Percent) 19.2 [facility] [facility] or plasma thyroxine (T4) free measurement (mass/volume)2019-08-01 04:30:00* Test Item Value Reference Range Interpretation Comments Free Thyroxine (test code = 3024-7) 1.21 [facility] or plasma thyrotropin measurement by detection limit <= 0.005 miu/l (units/volume)2019-08-01 04:30:00* Test Item Value Reference Range Interpretation Comments Thyroid Stimulating Hormone (TSH) (test code = 88145-5) 0.963 [facility]2019-07-31 06:54:00 [place] [address] Patient Name: TALA ROMO MR #: [id number] : 1940 Age/Sex: 78/F Req #: [id number] Adm Physician: Ordered by: AUSTIN JACOBSEN MD Report #: [id number] Location: ER Room/Bed: Procedure: DX/CHEST SINGLE (PORTABLE) Exam Date: 07/31/19 Exam Time: 616 REPORT STATUS: S igned EXAMINATION: CHEST SINGLE (PORTABLE) INDICATION: New onset se izure COMPARISON: None FINDINGS: TUBES and LINES: None. LUNGS: Normal lung volumes. Mild right perihilar/infrahilar hazine ss No consolidations. PLEURA: No pleural effusion or pneumothorax. HEART AND MEDIASTINUM: The cardiomediastinal silhouette is within normal size limits. Aortic calcifications.. Calcific coronary artery atherosclerosis. BONES AND SOFT TISSUES: No acute osseous lesion. Soft tissues are unremarka ble. Degenerative changes in the spine and shoulders. UPPER ABDOMEN: No chetna e air under the diaphragm. IMPRESSION: Nonspecific right perihila r/infrahilar haziness, possibly due to atelectasis. Calcific coronary arter y disease. Signed by: Ariel Koehler DO on 07/31/2019 6:56 AM Dictat ed By: ARIEL KOEHLER DO 5 COPY TO: AUSTIN JACOBSEN MD CT BRAIN OV7737-77-51 06:30:00 [place] [address] Patient Name: TALA ROMO MR #: [id number] : 1940 Age/Sex: 78/F Req #: [id number] Adm Physician: Ordered by: AUSTIN JACOBSEN MD Report #: [id number] Location: ER Room/Bed: Procedure: CT/CT BRAIN WO Exam Date: 07/31/19 Exam Time : 616 REPORT STATUS: Signed CT BRAIN WO HISTORY: Seizure COMPARISON: None. Technique: Noncon trast axial scans were obtained from skull base to the vertex. Coronal and sa gittal reconstructions obtained from the axial data. One or more of the follo wing dose reduction techniques were used: Automated exposure control, adjustme nt of the mA and/or kV according to patient size, and/or utilization of iterat christiano reconstruction technique. DISCUSSION: Scalp/Skull: Unremarkable. Brain sulci: Mildly prominent. Ventricles: Compensatory dilatation. Extra-a xial spaces: No masses or fluid collections. Carotid and vertebral artery calc ifications are present. Parenchyma: Mild bilateral deep white matter hyp odensity is likely chronic microvascular ischemic change. Otherwise, no mas ses, hemorrhage, or large vascular territory acute infarct. Dural sinuses: No abnormal densities. Sellar/Suprasellar region: Intact. Skull base: Intac t. Incidental findings: Bilateral ocular lens replacement. IMPRESSION: 1. No acute intracranial abnormalities. 2. Mild supratentorial chronic micro vascular ischemic change. Mild generalized cerebral volume loss. Venus d by: Dr. Dennis Resendiz M.D. on 07/31/2019 6:34 AM Dictated By: DENNIS RESENDIZ MD 3 Tra nscribed By: EFREM on 07/31/19633 COPY TO: AUSTIN JACOBSEN MD Prothrombin time (PT) in platelet poor plasma by coagulation assay 2019-07-31 05:58:00* Test Item Value Reference Range Interpretation Comments Prothrombin Time (test code = 5902-2) 14.5 [facility] CenterIN[facility] in Platelet poor plasma by Coagulation ucwti1766-26-17 05:58:00* Test Item Value Reference Range Interpretation Comments Prothromb Time International Ratio (test code = 6301-6) 1.06 [facility] HospitalActivated partial thromboplastin time (aPTT) in platelet poor plasma by coagulation isfin4215-42-50 05:58:00* Test Item Value Reference Range Interpretation Comments Activated Partial Thromboplast Time (test code = 91179-7) 22.3 [facility] HospitalBedside Qsoqksf1217-75-39 07:27:00* Test Item Value Reference Range Interpretation Comments Bedside Glucose (test code = 27309-0) 295 70-120 Meter ID: [id number] General HospitalCreatine Kinase MB 2018-08-07 13:57:00* Test Item Value Reference Range Interpretation Comments Creatine Kinase MB (test code = 77651-4) 1.90 0-5.0 [facility] HospitalTroponin X8749-16-67 13:57:00* Test Item Value Reference Range Interpretation Comments Troponin I (test code = WUF6765) 0.010 0-0.300 [facility] HospitalCreatine Dvcibp2609-99-61 13:49:00* Test Item Value Reference Range Interpretation Comments Creatine Kinase (test code = 2157-6) 57 29-168 [facility] HospitalTriglycerides Fpvyz4919-77-55 06:09:00* Test Item Value Reference Range Interpretation Comments Triglycerides Level (test code = 2571-8) 109 0-149 [facility] HospitalCholesterol Klrgj5420-74-61 06:09:00* Test Item Value Reference Range Interpretation Comments Cholesterol Level (test code = 2093-3) 96 0-199 Less than 200 mg/dL Low Iwza207 - 239 mg/dL Borderline Ssnu680 m g/dl and greater High Risk [facility] HospitalLDL Pzzagmvjvun5705-74-07 06:09:00* Test Item Value Reference Range Interpretation Comments LDL Cholesterol (test code = 2089-1) 38 60-130 [facility] HospitalHDL Quaewrhhpke1606-58-71 06:09:00* Test Item Value Reference Range Interpretation Comments HDL Cholesterol (test code = 2085-9) 36 40-60 [facility] HospitalCholesterol/HDL Tbzvu7881-53-54 06:09:00 * Test Item Value Reference Range Interpretation Comments Cholesterol/HDL Ratio (test code = 9830-1) 2.7 3.0-3.6 [facility] HospitalUrine QZE6721-05-55 15:23:00* Test Item Value Reference Range Interpretation Comments Urine WBC (test code = 5821-4) NONE 0-5 [facility] HospitalUrine VRO5125-77-29 15:23:00* Test Item Value Reference Range Interpretation Comments Urine RBC (test code = 67655-8) NONE 0-5 [facility] HospitalUrine Ngacpxtd9589-50-17 15:23:00* Test Item Value Reference Range Interpretation Comments Urine Bacteria (test code = 89497-4) FEW NONE [facility] HospitalUrine Epithelial Gfclb2761-12-13 15:23:00 * Test Item Value Reference Range Interpretation Comments Urine Epithelial Cells (test code = 23808-0) MODERATE NONE [facility] HospitalInfluenza Virus Types A,B Antigen 2018-08-06 15:10:00* Test Item Value Reference Range Interpretation Comments Influenza Virus Types A,B Antigen (test code = 85377-7) NEGATIVE NEGATIVE [facility] HospitalCHEST SINGLE (PORTABLE)2018-08-06 15:10:00 [facility] [address] [place] [address] Patient Name: TALA ROMO MR #: [id number] : 1940 Age/Sex: 78/F Req #: [id number] Adm Physician: ROSEANNE MARRERO Ordered by: SHAKIRA STROUD SOLID PLASTERER Report #: [id number] Location: [facility] Room/Bed: [place] [address] Proce dure: 3240-1330 DX/CHEST SINGLE (PORTABLE) Exam Date: 08/06/18 Exam Time: 1430 REPORT S TATUS: Signed Examination: Single AP view of the chest. COMPARISON: None . INDICATION: Chest pain DISCUSSION: Lines/tubes: None. Lungs: The lungs are well inflated and clear. No pneumonia or pulmonary edema. Pleura: No pleural effusion or pneumothorax. Heart and mediastinum: The heart and the mediastinum are unremarkable. Bones and soft tissues: No acute bony abnormalities. IMPRESSION: 1. No acute cardiopulmonary abnormalities. Signed by: Dr. No Figueroa M.D. on 08/06/2018 3:11 PM Dictated By: NO FIGUEROA MD 10 Transcribed By: EFREM on 08/06/181510 COPY TO: SHAKIRA STROUD SOLID PLASTERER CHEST SINGLE (PORTABLE)2018-08-06 15:10:00 [place] [address] Patient Name: DEMETRIUS ECHEVERRIA MR #: [id number] : 1940 Age/Sex: 77/F Req #: [id number] Adm Physician: Ordered by: SHAKIRA STROUD SOLID PLASTERER Report #: [id number] Location: ER Room/Bed: Procedure: [id number] DX/CHEST SINGLE (PORTABLE) Exam Date: 08/06/18 Exam [...] PM Dictate d By: NO FIGUEROA MD 10 COPY TO: MARIALUISA STROUD SOLID PLASTERER B-Type Natriuretic Hobewjs0665-16-07 15:09:00* Test Item Value Reference Range Interpretation Comments B-Type Natriuretic Peptide (test code = 31441-5) 64.9 0-100 [facility] Centerodium Joxls9924-39-61 15:03:00* Test Item Value Reference Range Interpretation Comments Sodium Level (test code = 2951-2) 135 136-145 [facility] HospitalPotassium Gwuac7978-00-21 15:03:00* Test Item Value Reference Range Interpretation Comments Potassium Level (test code = 2823-3) 3.4 3.5-5.1 [facility] HospitalChloride Evfru2512-81-73 15:03:00* Test Item Value Reference Range Interpretation Comments Chloride Level (test code = 2075-0) 98 98-107 [facility] HospitalCarbon Dioxide Tetos8125-65-04 15:03:00* Test Item Value Reference Range Interpretation Comments Carbon Dioxide Level (test code = 2028-9) 26 22-29 [facility] HospitalAnion Jst3144-69-74 15:03:00* Test Item Value Reference Range Interpretation Comments Anion Gap (test code = 38027-2) 14.4 8-16 [facility] HospitalBlood Urea Ugcvbgyv2385-24-93 15:03:00* Test Item Value Reference Range Interpretation Comments Blood Urea Nitrogen (test code = 3094-0) 24 7-26 [facility] HospitalCreatinine2019-04-23 15:03:00* Test Item Value Reference Range Interpretation Comments Creatinine (test code = 2160-0) 0.87 0.57-1.11 [facility] HospitalBUN/Creatinine Fisld3078-63-85 15:03:00* Test Item Value Reference Range Interpretation Comments BUN/Creatinine Ratio (test code = 3097-3) 28 6-25 [facility] HospitalEstimat Glomerular Filtration Rate 2018-08-06 15:03:00* Test Item Value Reference Range Interpretation Comments Estimat Glomerular Filtration Rate (test code = 876265648) > 60 >60 Ranges were taken from the National Kidney Disease Education Program and the [facility] Kidney Foundation literature.Reference ranges:60 or greater: Cwuzmn06-62 ( for 3 consecutive months): Chronic kidney disease 15 or less: Kidney failureCHI Titus Regional Medical CenterGlucose Arjnf2665-61-05 15:03:00* Test Item Value Reference Range Interpretation Comments Glucose Level (test code = CGW8830) 185 74-118 [facility] HospitalCalcium Itwvd4395-91-39 15:03:00* Test Item Value Reference Range Interpretation Comments Calcium Level (test code = 08027-1) 9.9 8.4-10.2 [facility] HospitalMagnesium Zgybo1217-56-03 15:03:00* Test Item Value Reference Range Interpretation Comments Magnesium Level (test code = 67296-2) 1.4 1.3-2.1 [facility] HospitalTotal Tcnxapulo4607-26-24 15:03:00* Test Item Value Reference Range Interpretation Comments Total Bilirubin (test code = 1975-2) 1.3 0.2-1.2 [facility] HospitalAspartate Amino Transf (AST/SGOT) 2018-08-06 15:03:00* Test Item Value Reference Range Interpretation Comments Aspartate Amino Transf (AST/SGOT) (test code = Aspartate Amino Transf (AST/SGOT)) 34 5-34 [facility] HospitalAlanine Aminotransferase (ALT/SGPT) 2018-08-06 15:03:00* Test Item Value Reference Range Interpretation Comments Alanine Aminotransferase (ALT/SGPT) (test code = 1742-6) 83 0-55 [facility] HospitalTotal Cyewomu1832-27-82 15:03:00* Test Item Value Reference Range Interpretation Comments Total Protein (test code = 2885-2) 6.8 6.5-8.1 [facility] HospitalAlbumin2019-04-23 15:03:00* Test Item Value Reference Range Interpretation Comments Albumin (test code = 1751-7) 3.3 3.5-5.0 [facility] HospitalGlobulin2019-04-23 15:03:00* Test Item Value Reference Range Interpretation Comments Globulin (test code = 62272-2) 3.5 2.3-3.5 [facility] HospitalAlbumin/Globulin Vfpwb8060-65-57 15:03:00 * Test Item Value Reference Range Interpretation Comments Albumin/Globulin Ratio (test code = 1759-0) 0.9 0.8-2.0 [facility] HospitalAlkaline Ibgyhytnztn9675-01-68 15:03:00* Test Item Value Reference Range Interpretation Comments Alkaline Phosphatase (test code = 6768-6) 91 40-150 [facility] HospitalUrine Riwso7409-91-67 15:01:00* Test Item Value Reference Range Interpretation Comments Urine Color (test code = 5778-6) YELLOW YELLOW [facility] HospitalUrine Grhdlek7837-10-65 15:01:00* Test Item Value Reference Range Interpretation Comments Urine Clarity (test code = 30226-7) SL CLOUDY CLEAR [facility] HospitalUrine Specific Awqiqys3613-49-75 15:01:00 * Test Item Value Reference Range Interpretation Comments Urine Specific Mobile (test code = 5811-5) 1.015 1.010-1.02 5 [facility] HospitalUrine dZ5621-92-96 15:01:00* Test Item Value Reference Range Interpretation Comments Urine pH (test code = 16755-8) 6 5-7 [facility] HospitalUrine Leukocyte Oxyyroxw2044-25-24 15:01:00* Test Item Value Reference Range Interpretation Comments Urine Leukocyte Esterase (test code = 5799-2) TRACE NEGATIVE [facility] HospitalUrine Yejntwn4026-83-19 15:01:00* Test Item Value Reference Range Interpretation Comments Urine Nitrite (test code = 43673-5) NEGATIVE NEGATIVE [facility] HospitalUrine Dphdymn9977-82-17 15:01:00* Test Item Value Reference Range Interpretation Comments Urine Protein (test code = 5804-0) 1+ NEGATIVE [facility] HospitalUrine Glucose (UA)2018-08-06 15:01:00* Test Item Value Reference Range Interpretation Comments Urine Glucose (UA) (test code = 2349-9) 2+ NEGATIVE [facility] HospitalUrine Jssefeo1437-48-66 15:01:00* Test Item Value Reference Range Interpretation Comments Urine Ketones (test code = 33405-3) 1+ NEGATIVE [facility] Xmmlfgyflqlq4678-88-86 15:01:00* Test Item Value Reference Range Interpretation Comments Urine Urobilinogen (test code = 43248-2) 0.2 0.2-1 [facility] HospitalUrine Kzseulrwr3622-45-66 15:01:00* Test Item Value Reference Range Interpretation Comments Urine Bilirubin (test code = 1978-6) 1+ NEGATIVE [facility] HospitalUrine Lbfkc5124-23-57 15:01:00* Test Item Value Reference Range Interpretation Comments Urine Blood (test code = 35901-5) NEGATIVE NEGATIVE [facility] HospitalProthrombin Bjop7433-97-53 14:59:00* Test Item Value Reference Range Interpretation Comments Prothrombin Time (test code = 5902-2) 13.2 11.9-14.5 [facility] HospitalProthromb Time International Ratio 2018-08-06 14:59:00* Test Item Value Reference Range Interpretation Comments Prothromb Time International Ratio (test code = 6301-6) 0.95 Oral Anticoagulant Therapy INR Values:1. Low Intensity Therapy 1.5 - 2.02 . Moderate Intensity Therapy 2.0 - 3.03. High Intensity Therapy(1) 2.5 - 3. 54. High Intensity Therapy(2) 3.0 - 4.05. Panic Value INR > 5.0 [facility] HospitalActivated Partial Thromboplast Time 2018-08-06 14:59:00* Test Item Value Reference Range Interpretation Comments Activated Partial Thromboplast Time (test code = 58118-5) 20.0 23.8-35.5 NO CLOT DETECTED [facility] HospitalWhite Blood Count 2018-08-06 14:49:00* Test Item Value Reference Range Interpretation Comments White Blood Count (test code = 6690-2) 9.71 4.8-10.8 [facility] HospitalRed Blood Rkyrz0955-69-18 14:49:00* Test Item Value Reference Range Interpretation Comments Red Blood Count (test code = 789-8) 4.46 3.6-5.1 [facility] HospitalHemoglobin2019-04-23 14:49:00* Test Item Value Reference Range Interpretation Comments Hemoglobin (test code = 63488-5) 13.6 12.0-16.0 [facility] HospitalHematocrit2019-04-23 14:49:00* Test Item Value Reference Range Interpretation Comments Hematocrit (test code = 4544-3) 38.2 34.2-44.1 [facility] HospitalMean Corpuscular Qyzgvi4592-38-22 14:49:00* Test Item Value Reference Range Interpretation Comments Mean Corpuscular Volume (test code = 787-2) 85.7 81-99 [facility] HospitalMean Corpuscular Mytrfrdizq6071-43-21 14:49:00* Test Item Value Reference Range Interpretation Comments Mean Corpuscular Hemoglobin (test code = 785-6) 30.5 28-32 [facility] HospitalMean Corpuscular Hemoglobin Concent 2018-08-06 14:49:00* Test Item Value Reference Range Interpretation Comments Mean Corpuscular Hemoglobin Concent (test code = 786-4) 35.6 31-35 [facility] HospitalRed Cell Distribution Fnodm5497-25-15 14:49:00* Test Item Value Reference Range Interpretation Comments Red Cell Distribution Width (test code = 95344-3) 12.4 11.7 -14.4 [facility] HospitalPlatelet Cdlyf6812-69-97 14:49:00* Test Item Value Reference Range Interpretation Comments Platelet Count (test code = 777-3) 295 140-360 [facility] HospitalNeutrophils (%) (Auto)2018-08-06 14:49:00 * Test Item Value Reference Range Interpretation Comments Neutrophils (%) (Auto) (test code = 99169-5) 67.5 38.7-80.0 [facility] HospitalLymphocytes (%) (Auto)2018-08-06 14:49:00 * Test Item Value Reference Range Interpretation Comments Lymphocytes (%) (Auto) (test code = 736-9) 25.5 18.0-39.1 [facility] HospitalMonocytes (%) (Auto)2018-08-06 14:49:00* Test Item Value Reference Range Interpretation Comments Monocytes (%) (Auto) (test code = 5905-5) 5.8 4.4-11.3 [facility] HospitalEosinophils (%) (Auto)2018-08-06 14:49:00 * Test Item Value Reference Range Interpretation Comments Eosinophils (%) (Auto) (test code = 713-8) 0.3 0.0-6.0 [facility] HospitalBasophils (%) (Auto)2018-08-06 14:49:00* Test Item Value Reference Range Interpretation Comments Basophils (%) (Auto) (test code = 706-2) 0.2 0.0-1.0 [facility] HospitalIM GRANULOCYTES %2018-08-06 14:49:00* Test Item Value Reference Range Interpretation Comments IM GRANULOCYTES % (test code = IM GRANULOCYTES %) 0.7 0.0- 1.0 [facility] HospitalNeutrophils # (Auto)2018-08-06 14:49:00* Test Item Value Reference Range Interpretation Comments Neutrophils # (Auto) (test code = 751-8) 6.6 2.1-6.9 [facility] HospitalLymphocytes # (Auto)2018-08-06 14:49:00* Test Item Value Reference Range Interpretation Comments Lymphocytes # (Auto) (test code = 48893-3) 2.5 1.0-3.2 [facility] HospitalMonocytes # (Auto)2018-08-06 14:49:00* Test Item Value Reference Range Interpretation Comments Monocytes # (Auto) (test code = 742-7) 0.6 0.2-0.8 [facility] HospitalEosinophils # (Auto)2018-08-06 14:49:00* Test Item Value Reference Range Interpretation Comments Eosinophils # (Auto) (test code = 711-2) 0.0 0.0-0.4 [facility] HospitalBasophils # (Auto)2018-08-06 14:49:00* Test Item Value Reference Range Interpretation Comments Basophils # (Auto) (test code = 704-7) 0.0 0.0-0.1 [facility] HospitalAbsolute Immature Granulocyte (auto 2018-08-06 14:49:00* Test Item Value Reference Range Interpretation Comments Absolute Immature Granulocyte (auto (constantino t code = Absolute Immature Granulocyte (auto) 0.07 0-0.1 [facility] HospitalMRI SPINE LUMBAR GM9553-85-96 07:30:00 [place] [address] Patient Name: TALA ROMO MR #: [id number] : 1940 Age/Sex: 77/F Req #: [id number] Adm Physician: Ordered by: KAM ARRINGTON MD Report #: [id number] Location: MRI Room/Bed: Procedure: 0117-0 006 MRI/MRI [...] TO: KAM ARRINGTON MD 25-Hydroxy Vitamin D Lsezj7539-86-77 06:30:00* Test Item Value Reference Range Interpretation Comments 25-Hydroxy Vitamin D Total (test code = 62674-8) 15 . Reference Range:All Ages: Target levels 30 - 100[facility]25-Hydroxy Vitamin H88168-19-21 06:30:00* Test Item Value Reference Range Interpretation Comments 25-Hydroxy Vitamin D3 (test code = 94615-8) 15 . Performed at: - [facility] [address] [place] [address] [id number] Director: Go Gold MD, Phone: [phone] General Hospital25-Hydroxy Vitamin J17322-37-33 06:30:00* Test Item Value Reference Range Interpretation Comments 25-Hydroxy Vitamin D2 (test code = 1989-3) -1.0 . [facility] CenterBedside Cfdwtcp9305-09-06 15:43:00* Test Item Value Reference Range Interpretation Comments Bedside Glucose (test code = 69303-9) 165 70-120 Meter ID: [id number] General HospitalMagnesium Level 2017-06-06 08:05:00* Test Item Value Reference Range Interpretation Comments Magnesium Level (test code = 40253-0) 0.9 1.3-2.1 Results called to TIGIST RODRIGUEZ at 0804 on 06/06/17 by Ramona Ernst. RB [place]. [facility] Centerodium Llbyk3968-00-32 07:23:00* Test Item Value Reference Range Interpretation Comments Sodium Level (test code = 2951-2) 132 136-145 [facility] HospitalPotassium Ufrvv3584-59-14 07:23:00* Test Item Value Reference Range Interpretation Comments Potassium Level (test code = 2823-3) 3.7 3.5-5.1 [facility] HospitalChloride Sxpvi4988-44-25 07:23:00* Test Item Value Reference Range Interpretation Comments Chloride Level (test code = 2075-0) 96 98-107 [facility] HospitalCarbon Dioxide Noamt1721-78-59 07:23:00* Test Item Value Reference Range Interpretation Comments Carbon Dioxide Level (test code = 2028-9) 24 22-29 [facility] HospitalAnion Jym2783-41-93 07:23:00* Test Item Value Reference Range Interpretation Comments Anion Gap (test code = 33803-3) 15.7 8-16 [facility] HospitalBlood Urea Jmyysjqb1601-20-61 07:23:00* Test Item Value Reference Range Interpretation Comments Blood Urea Nitrogen (test code = 3094-0) 15 7-26 [facility] HospitalCreatinine2018-02-21 07:23:00* Test Item Value Reference Range Interpretation Comments Creatinine (test code = 2160-0) 0.79 0.57-1.11 [facility] HospitalBUN/Creatinine Cgkzm0532-74-70 07:23:00* Test Item Value Reference Range Interpretation Comments BUN/Creatinine Ratio (test code = 3097-3) 19 6-25 [facility] HospitalEstimat Glomerular Filtration Rate 2017-06-06 07:23:00* Test Item Value Reference Range Interpretation Comments Estimat Glomerular Filtration Rate (test code = 67417-8) 60- >60 Ranges were taken from the National Kidney Disease Education Program and the [facility] Kidney Foundation literature.Reference ranges:60 or greater: Kuauvd21-79 ( for 3 consecutive months): Chronic kidney disease 15 or less: Kidney failureWilbarger General HospitalGlucose Aprvg7959-95-18 07:23:00* Test Item Value Reference Range Interpretation Comments Glucose Level (test code = LPB5369) 201 74-118 [facility] HospitalCalcium Lotcw1942-44-26 07:23:00* Test Item Value Reference Range Interpretation Comments Calcium Level (test code = 55240-1) 8.6 8.4-10.2 [facility] HospitalPhosphorus Ocrql8139-36-26 07:23:00* Test Item Value Reference Range Interpretation Comments Phosphorus Level (test code = SBG3482) 3.2 2.3-4.7 [facility] HospitalTotal Gthzmbgwc4954-55-68 07:23:00* Test Item Value Reference Range Interpretation Comments Total Bilirubin (test code = 1975-2) 1.5 0.2-1.2 [facility] HospitalAspartate Amino Transf (AST/SGOT) 2017-06-06 07:23:00* Test Item Value Reference Range Interpretation Comments Aspartate Amino Transf (AST/SGOT) (test code = Aspartate Amino Transf (AST/SGOT)) 36 5-34 [facility] HospitalAlanine Aminotransferase (ALT/SGPT) 2017-06-06 07:23:00* Test Item Value Reference Range Interpretation Comments Alanine Aminotransferase (ALT/SGPT) (test code = 1742-6) 27 0-55 [facility] HospitalTotal Jxygkfq7295-13-13 07:23:00* Test Item Value Reference Range Interpretation Comments Total Protein (test code = 2885-2) 5.9 6.5-8.1 [facility] HospitalAlbumin2018-02-21 07:23:00* Test Item Value Reference Range Interpretation Comments Albumin (test code = 1751-7) 2.2 3.5-5.0 [facility] HospitalGlobulin2018-02-21 07:23:00* Test Item Value Reference Range Interpretation Comments Globulin (test code = 84069-0) 3.7 2.3-3.5 [facility] HospitalAlbumin/Globulin Odicb5961-07-32 07:23:00 * Test Item Value Reference Range Interpretation Comments Albumin/Globulin Ratio (test code = 1759-0) 0.6 0.8-2.0 [facility] HospitalAlkaline Jjgwjmznhnv1317-67-93 07:23:00* Test Item Value Reference Range Interpretation Comments Alkaline Phosphatase (test code = 6768-6) 102 40-150 [facility] HospitalHemoglobin2018-02-19 07:21:00* Test Item Value Reference Range Interpretation Comments Hemoglobin (test code = 33605-9) 9.6 12.0-16.0 [facility] HospitalHematocrit2018-02-19 07:21:00* Test Item Value Reference Range Interpretation Comments Hematocrit (test code = 4544-3) 27.9 34.2-44.1 [facility] HospitalThyroid Stimulating Hormone (TSH) 2017-06-03 13:08:00* Test Item Value Reference Range Interpretation Comments Thyroid Stimulating Hormone (TSH) (test code = 87270-8) 5.356 0.350-4.940 [facility] Hbdi3289-36-83 12:49:00* Test Item Value Reference Range Interpretation Comments Uric Acid (test code = 3084-1) 3.9 2.6-8.0 [facility] HospitalTriglycerides Ieerw8139-78-19 12:49:00* Test Item Value Reference Range Interpretation Comments Triglycerides Level (test code = 2571-8) 110 0-149 [facility] HospitalCholesterol Xlknr6192-11-34 12:49:00* Test Item Value Reference Range Interpretation Comments Cholesterol Level (test code = 2093-3) 78 0-199 Less than 200 mg/dL Low Olsa713 - 239 mg/dL Borderline Bkzu264 m g/dl and greater High Risk [facility] HospitalLDL Evvxbzjjzvm6388-62-96 12:49:00* Test Item Value Reference Range Interpretation Comments LDL Cholesterol (test code = 2089-1) 37 60-130 [facility] HospitalHDL Oeaiotjerrg8495-48-91 12:49:00* Test Item Value Reference Range Interpretation Comments HDL Cholesterol (test code = 2085-9) 19 40-60 [facility]Cholesterol/HDL Xsfkp0766-14-58 12:49:00 * Test Item Value Reference Range Interpretation Comments Cholesterol/HDL Ratio (test code = 9830-1) 4.1 3.0-3.6 [facility] HospitalCreatine Kinase MS9730-35-96 08:50:00* Test Item Value Reference Range Interpretation Comments Creatine Kinase MB (test code = 59358-6) 1.50 0-5.0 [facility] HospitalTroponin N8101-15-30 08:50:00* Test Item Value Reference Range Interpretation Comments Troponin I (test code = JIE0955) 0.00 0.0-0.78 [facility] HospitalCreatine Znsalo7079-03-53 08:44:00* Test Item Value Reference Range Interpretation Comments Creatine Kinase (test code = 2157-6) 77 29-168 [facility] HospitalWhite Blood Mtjsh2053-86-73 07:44:00* Test Item Value Reference Range Interpretation Comments White Blood Count (test code = 6690-2) 12.05 4.8-10.8 [facility] HospitalRed Blood Zvubf5193-63-87 07:44:00* Test Item Value Reference Range Interpretation Comments Red Blood Count (test code = 789-8) 3.11 3.6-5.1 [facility] HospitalMean Corpuscular Wllvkv6394-49-40 07:44:00* Test Item Value Reference Range Interpretation Comments Mean Corpuscular Volume (test code = 787-2) 85.5 81-99 [facility] HospitalMean Corpuscular Dmnwcyswgu5094-29-86 07:44:00* Test Item Value Reference Range Interpretation Comments Mean Corpuscular Hemoglobin (test code = 785-6) 28.9 28-32 [facility] Corpuscular Hemoglobin Concent 2017-06-01 07:44:00* Test Item Value Reference Range Interpretation Comments Mean Corpuscular Hemoglobin Concent (test code = 786-4) 33.8 31-35 [facility] HospitalRed Cell Distribution Ehhqr3949-29-66 07:44:00* Test Item Value Reference Range Interpretation Comments Red Cell Distribution Width (test code = 17272-1) 13.8 11.7 -14.4 [facility] HospitalPlatelet Qiwcx0424-70-55 07:44:00* Test Item Value Reference Range Interpretation Comments Platelet Count (test code = 777-3) 307 140-360 [facility] HospitalNeutrophils (%) (Auto)2017-06-01 07:44:00 * Test Item Value Reference Range Interpretation Comments Neutrophils (%) (Auto) (test code = 67573-7) 84.6 38.7-80.0 [facility] HospitalLymphocytes (%) (Auto)2017-06-01 07:44:00 * Test Item Value Reference Range Interpretation Comments Lymphocytes (%) (Auto) (test code = 736-9) 6.6 18.0-39.1 [facility] HospitalMonocytes (%) (Auto)2017-06-01 07:44:00* Test Item Value Reference Range Interpretation Comments Monocytes (%) (Auto) (test code = 5905-5) 8.0 4.4-11.3 [facility] HospitalEosinophils (%) (Auto)2017-06-01 07:44:00 * Test Item Value Reference Range Interpretation Comments Eosinophils (%) (Auto) (test code = 713-8) 0.0 0.0-6.0 [facility] HospitalBasophils (%) (Auto)2017-06-01 07:44:00* Test Item Value Reference Range Interpretation Comments Basophils (%) (Auto) (test code = 706-2) 0.1 0.0-1.0 [facility] HospitalIM GRANULOCYTES %2017-06-01 07:44:00* Test Item Value Reference Range Interpretation Comments IM GRANULOCYTES % (test code = IM GRANULOCYTES %) 0.7 0.0- 1.0 [facility] HospitalNeutrophils # (Auto)2017-06-01 07:44:00* Test Item Value Reference Range Interpretation Comments Neutrophils # (Auto) (test code = 751-8) 10.2 2.1-6.9 [facility] HospitalLymphocytes # (Auto)2017-06-01 07:44:00* Test Item Value Reference Range Interpretation Comments Lymphocytes # (Auto) (test code = 86808-7) 0.8 1.0-3.2 [facility] HospitalMonocytes # (Auto)2017-06-01 07:44:00* Test Item Value Reference Range Interpretation Comments Monocytes # (Auto) (test code = 742-7) 1.0 0.2-0.8 [facility] HospitalEosinophils # (Auto)2017-06-01 07:44:00* Test Item Value Reference Range Interpretation Comments Eosinophils # (Auto) (test code = 711-2) 0.0 0.0-0.4 [facility] HospitalBasophils # (Auto)2017-06-01 07:44:00* Test Item Value Reference Range Interpretation Comments Basophils # (Auto) (test code = 704-7) 0.0 0.0-0.1 [facility] HospitalAbsolute Immature Granulocyte (auto 2017-06-01 07:44:00* Test Item Value Reference Range Interpretation Comments Absolute Immature Granulocyte (auto (constantino t code = Absolute Immature Granulocyte (auto) 0.09 0-0.1 [facility] HospitalUrine KSL6246-66-47 15:50:00* Test Item Value Reference Range Interpretation Comments Urine WBC (test code = 5821-4) NONE 0-5 [facility] HospitalU[facility] MNK1288-90-17 15:50:00* Test Item Value Reference Range Interpretation Comments Urine RBC (test code = 03564-1) NONE 0-5 [facility] HospitalU[facility] Aibyqizd2863-82-43 15:50:00* Test Item Value Reference Range Interpretation Comments Urine Bacteria (test code = 81413-7) NONE NONE [facility] HospitalU[facility] Epithelial Hsusn0485-57-71 15:50:00 * Test Item Value Reference Range Interpretation Comments Urine Epithelial Cells (test code = 41715-8) NONE NONE [facility] HospitalU[facility] Lqpxp1544-59-91 15:20:00* Test Item Value Reference Range Interpretation Comments Urine Color (test code = 5778-6) YELLOW YELLOW [facility] HospitalU[facility] Gnhwvog1233-04-88 15:20:00* Test Item Value Reference Range Interpretation Comments Urine Clarity (test code = 14643-5) SL CLOUDY CLEAR [facility] HospitalUrine Specific Fvdwsqu0822-55-87 15:20:00 * Test Item Value Reference Range Interpretation Comments Urine Specific Mobile (test code = 5811-5) 1.015 1.010-1.02 5 [facility] HospitalUrine qG9771-44-40 15:20:00* Test Item Value Reference Range Interpretation Comments Urine pH (test code = 16042-2) 5 5-7 [facility] Hospital[facility] Leukocyte Snxrugvb6813-12-39 15:20:00* Test Item Value Reference Range Interpretation Comments Urine Leukocyte Esterase (test code = 5799-2) NEGATIVE NEGATIVE [facility] Xatxkdb5356-11-17 15:20:00* Test Item Value Reference Range Interpretation Comments Urine Nitrite (test code = 94895-9) NEGATIVE NEGATIVE [facility] HospitalU[facility] Ddadobi1416-99-07 15:20:00* Test Item Value Reference Range Interpretation Comments Urine Protein (test code = 5804-0) TRACE NEGATIVE [facility] HospitalUrine Glucose (UA)2017-05-31 15:20:00* Test Item Value Reference Range Interpretation Comments Urine Glucose (UA) (test code = 2349-9) 3+ NEGATIVE [facility] HospitalUrine Uycafyd0753-98-06 15:20:00* Test Item Value Reference Range Interpretation Comments Urine Ketones (test code = 53744-3) NEGATIVE NEGATIVE [facility] HospitalU[facility] Uzipeyjkwskv7980-81-38 15:20:00* Test Item Value Reference Range Interpretation Comments Urine Urobilinogen (test code = 74514-3) 0.2 0.2-1 [facility] HospitalUrine Isxipzdps4446-76-82 15:20:00* Test Item Value Reference Range Interpretation Comments Urine Bilirubin (test code = 1978-6) NEGATIVE NEGATIVE [facility] HospitalU[facility] Dsvpn8019-05-17 15:20:00* Test Item Value Reference Range Interpretation Comments Urine Blood (test code = 52276-1) 2+ NEGATIVE [facility] HospitalU[facility] Vmsnn9213-55-56 21:07:00* Test Item Value Reference Range Interpretation Comments Urine Mucus (test code = 8247-9) FEW RARE [facility] HospitalProthrombin Wvju0805-90-12 20:27:00* Test Item Value Reference Range Interpretation Comments Prothrombin Time (test code = 5902-2) 13.5 11.9-14.5 [facility] HospitalProthromb Time International Ratio 2017-05-28 20:27:00* Test Item Value Reference Range Interpretation Comments Prothromb Time International Ratio (test code = 6301-6) 1.11 Oral Anticoagulant Therapy INR Values:1. Low Intensity Therapy 1.5 - 2.02 . Moderate Intensity Therapy 2.0 - 3.03. High Intensity Therapy(1) 2.5 - 3. 54. High Intensity Therapy(2) 3.0 - 4.05. Panic Value INR > 5.0 [facility] HospitalActivated Partial Thromboplast Time 2017-05-28 20:27:00* Test Item Value Reference Range Interpretation Comments Activated Partial Thromboplast Time (test code = 57049-0) 27.2 23.8-35.5 [facility] HospitalCT H[facility] LEFT WO [facility] [address] [address] Patient Name: TALA ROMO MR #: [id number] : 1940 Age/Sex: 76/F Req #: [id number] Adm Physician: Ordered by: AUSTIN JACOBSEN MD Report #: [id number] Location: ER Room/Bed: Procedure: CT/CT HIP LEFT [...] 7:07 AM Dictated By: NO FIGUEROA MD 6 Transcribed By: EFREM on 08/10/17 070 7 COPY TO: AUSTIN JACOBSEN MD CT HIP LEFT WO [place] [address] Patient Name: TALA ROMO MR #: [id number] : 1940 Age/Sex: 76/F Req #: [id number] Adm Physician: Ordered by: AUSTIN JACOBSEN MD Report #: [id number] Location: ER Room/Bed: Procedure: CT/CT HIP LEFT [...] 7:07 AM Dictated By: NO FIGUEROA MD 6 Transcribed By: EFREM on 08/10/17 070 7 COPY TO: AUSTIN JACOBSEN MD HIP LEFT 2-3 VW (+/- PELVIS) [place] [address] Patient Name: TALA ROMO MR #: [id number] D OB: 1940 Age/Sex: 76/F Req #: [id number] Adm Physic rodrick: Ordered by: AUSTIN JACOBSEN MD Report #: [id number] Location: E R Room/Bed: Procedure: 9692-1324 DX/HIP LEFT 2-3 VW (+/- PELVIS) Exam [...] MD HIP LEFT 2-3 VW (+/- PELVIS) [place] [address] Patient Name: TALA ROMO MR #: [id number] : 1940 Age/Sex: 76/F Req #: [id number] Adm Physician: Ordered by: AUSTIN JACOBSEN MD Report #: [id number] Location: ER Room/Bed: Procedure: 9854-5545 DX/HIP LEFT 2-3 VW (+/- PELVIS) Exam [...] TO: AUSTIN JACOBSEN MD CHEST SINGLE (PORTABLE) [place] [address] Patient Name: TALA ROMO MR #: [id number] : 1940 Age/Sex: 76/F Req #: [id number] Adm Physician: ROSEANNE MARRERO Ordered by: ELIDA FLORES, ROSEANNE FLORES Report #: [id number] Location: MED/SURG Room/Bed: [facility] Procedure: 5171-4105 DX/CHEST SINGLE (PORTABLE) Exam Date: 06/05/17 Exam [...] COPY TO: ROSEANNE MARRERO CHEST SINGLE (PORTABLE) [place] [address] Patient Name: TALA ROMO MR #: [id number] : 1940 Age/Sex: 76/F Req #: [id number] Adm Physician: ROSEANNE MARRERO Ordered by: ELIDA FLORES, ROSEANNE FLORES Report #: [id number] Location: MED/SURG Room/Bed: [facility] Procedure: 1577-0000 DX/CHEST SINGLE (PORTABLE) Exam Date: 06/05/17 Exam [...] TO: ROSEANNE MARRERO PELVIS AP 1-2 VIEWS [place] [address] Patient Name: TALA ROMO MR #: [id number] : 1940 Age/Sex: 76/F Req #: [id number] Adm Physician: ROSEANNE MARRERO Ordered by: KAM ARRINGTON MD Report #: [id number] Location: MED/SURG Room/Bed: [facility] Proce dure: 8511-7467 DX/PELVIS AP 1-2 VIEWS Exam Date: 06/02/17 [...] ZIMMERMAN MD 1256 Transcribed By: EFREM on 125 COPY TO: KAM ARRINGTON MD HIP RIGHT ONE VW (+/- PELVIS) [place] [address] Patient Name: TALA ROMO MR #: [id number] D OB: 1940 Age/Sex: 76/F Req #: [id number] Adm Physic rodrick: ROSEANNE MARRERO Ordered by: KAM ARRINGTON MD Report #: [id number] Location: MED/SURG Room/Bed: [facility] Proce dure: [id number] DX/HIP RIGHT ONE VW (+/- PELVIS) Exam [...] igned By: HARLAN ZIMMERMAN MD on 06/02/17 125 Transcribed By: EFREM on 06/02/17 125 COPY TO: KAM ARRINGTON MD PELVIS AP 1-2 VIEWS [place] [address] Patient Name: TALA ROMO MR #: [id number] : 1940 Age/Sex: 76/F Req #: [id number] Adm Physician: ROSEANNE MARRERO Ordered by: KAM ARRINGTON MD Report #: [id number] Location: MED/SURG Room/Bed: 106 Proce dure: [id number] DX/PELVIS AP 1-2 VIEWS Exam Date: 06/02/17 [...] MD HIP RIGHT ONE VW (+/- PELVIS) [place] [address] Patient Name: TALA ROMO MR #: [id number] D OB: 1940 Age/Sex: 76/F Req #: [id number] Adm Physic rodrick: ROSEANNE MARRERO Ordered by: KAM ARRINGTON MD Report #: [id number] Location: MED/SURG Room/Bed: 106 Proce dure: 4350-3933 DX/HIP RIGHT ONE VW (+/- PELVIS) Exam [...] igned By: HARLAN ZIMMERMAN MD on 06/02/17 125 Transcribed By: EFREM on 06/02/17 1256 COPY TO: KAM ARRINGTON MD CHEST SINGLE (PORTABLE) [place] [address] Patient Name: TALA ROMO MR #: [id number] : 1940 Age/Sex: 76/F Req #: [id number] Adm Physician: Ordered by: LLUVIA DIEGO SOLID PLASTERER Report #: [id number] [facility]: Procedure: 2342-2131 DX/CHEST SINGLE (PORTAB LE) Exam Date: Exam [...] on 05/28/17 COPY TO: LLUVIA DIEGO NP CHEST SINGLE (PORTABLE) [place] [address] Patient Name: TALA ROMO MR #: [id number] : 1940 Age/Sex: 76/F Req #: [id number] Adm Physician: ROSEANNE MARRERO Ordered by: LLUVIA DIEGO SOLID PLASTERER Report #: [id number] Location: MED/SURG Room/Bed: [facility] Proce dure: 7571-9934 DX/CHEST SINGLE (PORTABLE) Exam Date: Exam Time: [...] on 05/28/172042 COPY TO: LLUVIA DIEGO NP MRI PELVIS WO [facility] [address] [address] Patient Name: TALA ROMO MR #: [id number] : 1940 Age/Sex: 76/F Req #: [id number] Adm Physician: Ordered by: LLUVIA DIEGO NP Report #: [id number] Location: ER Room/Bed: Procedure: 3887-8130 MRI/MRI PELVIS WO Exam Date: Exam Time: [...] LLUVIA DIEGO NP MRI HIP RIGHT WO [facility] [address] [address] Patient Name: TALA ROMO MR #: [id number] : 1940 Age/Sex: 76/F Req #: [id number] Adm Physician: Ordered by: LLUVIA DIEGO NP Report #: [id number] Location: ER Room/Bed: Procedure: 3446-7400 MRI/MRI HIP RIGHT WO E xam Date: [...] 6:33 PM Dictated By: NO FIGUEROA MD 1833 Transcribed By: EFREM on 05/28/17 183 3 COPY TO: LLUVIA DIEGO SOLID PLASTERER MRI PELVIS WO [place] [address] Patient Name: TALA ROMO MR #: [id number] : 1940 Age/Sex: 76/F Req #: [id number] Adm Physician: ROSEANNE MARRERO Ordered by: LLUVIA DIEGO NP Report #: [id number] Location: MED/SURG Room/Bed: 106-1 Proce dure: [id number] MRI/MRI PELVIS WO Exam Date: Exam T [...] EFREM on 05/28/171832 COPY TO: LLUVIA DIEGO SOLID PLASTERER MRI HIP RIGHT WO [place] [address] Patient Name: TALA ROMO MR #: [id number] : 1940 Age/Sex: 76/F Req #: [id number] Adm Physician: ROSEANNE MARRERO Ordered by: LLUVIA DIEGO SOLID PLASTERER Report #: [id number] Location: MED/SURG Room/Bed: 106-1 Proce dure: [id number] MRI/MRI HIP RIGHT WO Exam Date: Time: REPORT STATUS: Signed TECHNIQUE: Magnetic resonance imaging of the pelvis and right hip was performed WITHOUT injected contrast using [facility] departmental protocols. HISTORY: Right hip pain [...] on 05/28/171832 COPY TO: LLUVIA DIEGO NP CT BRAIN WO [place] [address] Patient Name: TALA ROMO MR #: [id number] : 1940 Age/Sex: 76/F Req #: [id number] Adm Physician: Ordered by: LLUVIA DIEGO NP Report #: [id number] Location: ER Room/Bed: Procedure: 6275-0697 CT/CT BRAIN WO Exam Da te: Exam [...] NP HIP RIGHT 2-3 VW (+/- PELVIS) [place] [address] Patient Name: TALA ROMO MR #: [id number] : 1940 Age/Sex: 76/F Req #: [id number] Adm Physician: Ordered by: LLUVIA DIEGO NP Report #: [id number] Location: ER Room/Bed: Procedure: 4690-1098 DX/HIP RIGHT 2-3 VW (+/ - PELVIS) Exam Date: Exam Time: REPORT STATU S: Signed PROCEDURE: HIP RIGHT 2-3 VW (+/- PELVIS) COMPARISON: To p evans. INDICATIONS: FALL, RIGHT HIP AND LEG PAIN [...] QIAN on 05/28/171626 COPY TO: LLUVIA DIEGO SOLID PLASTERER FEMUR TWO VIEW MINIMUM RIGHT [place] [address] Patient Name: TALA ROMO MR #: [id number] : 1940 Age/Sex: 76/F Req #: [id number] Adm Physician: Ordered by: LLUVIA DIEGO NP Report #: [id number] Location: ER Room/Bed: Procedure: 5628-8256 DX/FEMUR TWO VIEW MINIM UM RIGHT Exam [...] 05/28/171628 COPY TO: LLUVIA DIEGO NP CT BRAIN [place] [address] Patient Name: TALA ROMO MR #: [id number] : 1940 Age/Sex: 76/F Req #: [id number] Adm Physician: ROSEANNE MARRERO Ordered by: LLUVIA DIEGO NP Report #: [id number] Location: MED/SURG Room/Bed: 106-1 Proce zachary: 5699-7085 CT/CT BRAIN WO Exam Date: Exam Time [...] 3:20 PM Dictated By: CYNTHIA SUTHERLAND MD 1520 Transcribed By: EFREM on 05/28/17 1520 C OPY TO: LLUVIA DIEGO SOLID PLASTERER HIP RIGHT 2-3 VW (+/- PELVIS) [place] [address] Patient Name: TALA ROMO MR #: [id number] : 1940 Age/Sex: 76/F Req #: [id number] Adm Physician: ROSEANNE MARRERO Ordered by: LLUVIA DIEGO SOLID PLASTERER Report #: [id number] Location: MED/SURG Room/Bed: 106-1 Proce dure: [id number] DX/HIP RIGHT 2-3 VW (+/- PELVIS) Exam [...] PAREDES MD 26 COPY TO: ANDREAS DIEGO SOLID PLASTERER FEMUR TWO VIEW MINIMUM RIGHT [place] [address] Patient Name: TALA ROMO MR #: [id number] : 1940 Age/Sex: 76/F Req #: [id number] Adm Physician: ROSEANNE MARRERO Ordered by: LLUVIA DIEGO SOLID PLASTERER Report #: [id number] Location: MED/SURG Room/Bed: [facility] Proce dure: 9304-5551 DX/FEMUR TWO VIEW MINIMUM RIGHT Exam Date: [...] PAREDES MD 28 COPY TO: ANDREAS DIEGO NP CT ABDOMEN/PELVIS [place] [address] Patient Name: TALA ROMO MR #: [id number] : 1940 Age/Sex: 76/F Req #: [id number] Adm Physician: QUINTON VILLAR MD Ordered by: UNA REYNOSO MD Report #: [id number] Location: MED/SURG3 Room/Bed: 299-1 Procedure: 8-0014 CT/CT ABDOMEN/PELVIS W Exam Date: 01/01/14 [...] TO: UNA REYNOSO MD CT BRAIN WO [place] [address] Patient Name: TALA ROMO MR #: [id number] : 1940 Age/Sex: 76/F Req #: [id number] Adm Physician: QUINTON VILLAR MD Ordered by: UNA REYNOSO MD Report #: [id number] Location: MED/SURG3 Room/Bed: 299-1 Procedure: 091 8-0016 CT/CT BRAIN WO Exam [...] 5:32 pm Dictated By: MAYO HERMOSILLO MD 173 Trans cribed By: EFREM on 01/01/14 1733 COPY TO: UNA REYNOSO MD CHEST [facility] (PORTABLE) [place] [address] Patient Name: TALA ROMO MR #: [id number] : 1940 Age/Sex: 76/F Req #: [id number] Adm Physician: NARESH PINEDA MD Ordered by: YAZMIN FLORES, LISA FLORES Report #: [id number] Location: ICU Room/Bed: ICU [facility] Procedure: 3765-3112 DX/CHEST SINGLE (PORTABLE) Exam Date: 11/06/13 Exam [...] opacities most compat ible with pulmonary edema. Scott Bray D.O. Dictated by: Deirdre Bray D.O. on 11/06/2013 at 12:05 Electronically approved by: Nai Bray D.O. on 11/06/2013 at 12:05 Dictated By: SCOTT FITZGERALD DO 1152 Transcribed By: QIAN on 11/06/13 1205 COPY TO: LISA ARCE BA. SWALLOW [place] [address] Patient Name: TALA ROMO MR #: [id number] : 1940 Age/Sex: 76/F Req #: [id number] Adm Physician: Ordered by: LYNSEY GARCIA MD Report #: [id number] Location: DX Room/Bed: Procedure: 0121-9204 DX/MODIFIED BA. SWALLOW Exam Date: 08/04/13 Exam [...] at 14:28 Dictated By: GM MARTINEZ MD 1422 Transcribed By: QIAN on 08/04/13 1428 COPY TO: LYNSEY GARCIA MD
--- NOTE | 2019-08-27 22:16 | Emergency Department Note ---
History of Present Illnes History of Present Illness Chief Complaint: Diabetic Crisis History of Present Illness This is a 78 year old female who presents with c/o elevated bs of over 600, pt received 50 units of Levemir and 15 units of NovoLog at 8pm, pt was admitted here last month for same and was in dka Historian: Patient, Family Member Arrival Mode: Car Onset (how long ago): hour(s) (3) Location: none Quality: elevated bs Radiation: non-radiation, back, neck, extremity, abdomen, periumbilical, flank, proximal, distal, other Severity: severe Onset quality: gradual Duration (how long): hour(s) (3) Timing of current episode: constant Progression: worsening Chronicity: recurrent Relieving factors: none Exacerbating factors: none Associated symptoms: chest pain (since waking up this morning) Treatments prior to arrival: other (levimer 50 units, novolog 15 untis) Past Medical/Family History Physician Review I have reviewed the patient's past medical and family history. Any updates have been documented here. Past Medical History Recent Fever: No Clinical Suspicion of Infectio: No New/Unexplained Change in Ment: No Past Medical History: Hypertension, Diabetes, MT, Hypothyroidism, CAD, Anxiety, Chronic Back Pain Other Medical History: HYPONATREMIA R HIP FX MULITPLE ESOPHAGEAL DILATIONS Past Surgical History: PCI Other Surgery: R HIP REPLACEMENT CARDIAC STENTS FOOT SX Social History Smoking Cessation: Never Smoker Alcohol Use: None Any Illegal Drug Use: No Other Last Tetanus: Unknown Review of Systems Review of Systems Constitutional: no symptoms EENTM: no symptoms Cardiovascular: chest pain (since she woke up this morning) Respiratory: no symptoms Gastrointestinal: no symptoms Genitourinary: no symptoms Musculoskeletal: no symptoms Integumentary: no symptoms Neurological: no symptoms Psychological: no symptoms Endocrine: no symptoms Hematological/Lymphatic: no symptoms Review of other systems All other systems reviewed and negative. Physical Exam Related Data Allergies: Coded Allergies: No Known Allergies (Unverified , 07/18/13) Triage Vital Signs Vital Signs Date Time Temp Pulse Resp B/P (MAP) Pulse Ox O2 Delivery O2 Flow Rate FiO2 08/27/19 21:57 98.6 123 20 175/92 95 Vital signs reviewed: Yes Physical Exam CONSTITUTIONAL Constitutional: well-developed, well-nourished HENT HENT: normocephalic, atraumatic, oropharynx clear/moist, nose normal HENT - Ear: left ext ear normal, right ext ear normal EYES Eyes: PERRL, conjunctivae normal NECK Neck: ROM normal PULMONARY Pulmonary: effort normal, breath sounds normal CARDIOVASCULAR Cardiovascular: heart sounds normal, capillary refill normal, tachycardia (rate 123) GASTROINTESTINAL Abdominal: soft, nontender, bowel sounds normal GENITOURINARY Genitourinary: exam deferred SKIN Skin: warm, dry MUSCULOSKELETAL Musculoskeletal: ROM normal NEUROLOGICAL Neurological: alert, oriented x 3, no gross motor or sensory deficits PSYCHOLOGICAL Psychiatric/behavioral: mood/affect normal, judgement normal Results Laboratory Laboratory Laboratory Tests Test 08/27/19 23:45 08/27/19 22:06 White Blood Count 9.62 x10e3/uL (4.8-10.8) Red Blood Count 4.14 x10e6/uL (3.6-5.1) Hemoglobin 11.9 g/dL (12.0-16.0) Hematocrit 34.0 % (34.2-44.1) Mean Corpuscular Volume 82.1 fL (81-99) Mean Corpuscular Hemoglobin 28.7 pg (28-32) Mean Corpuscular Hemoglobin Concent 35.0 g/dL (31-35) Red Cell Distribution Width 13.1 % (11.7-14.4) Platelet Count 443 x10e3/uL (140-360) Neutrophils (%) (Auto) 62.1 % (38.7-80.0) Lymphocytes (%) (Auto) 27.0 % (18.0-39.1) Monocytes (%) (Auto) 9.6 % (4.4-11.3) Eosinophils (%) (Auto) 0.5 % (0.0-6.0) Basophils (%) (Auto) 0.5 % (0.0-1.0) Neutrophils # (Auto) 6.0 (2.1-6.9) Lymphocytes # (Auto) 2.6 (1.0-3.2) Monocytes # (Auto) 0.9 (0.2-0.8) Eosinophils # (Auto) 0.1 (0.0-0.4) Basophils # (Auto) 0.1 (0.0-0.1) Absolute Immature Granulocyte (auto 0.03 x10e3/uL (0-0.1) Sodium Level 126 mmol/L (136-145) Potassium Level 3.4 mmol/L (3.5-5.1) Chloride Level 84 mmol/L (98-107) Carbon Dioxide Level 25 mmol/L (22-29) Anion Gap 20.4 mmol/L (8-16) Blood Urea Nitrogen 36 mg/dL (7-26) Creatinine 1.26 mg/dL (0.57-1.11) Estimat Glomerular Filtration Rate 41 ML/MIN (60-) BUN/Creatinine Ratio 29 (6-25) Glucose Level 526 mg/dL (74-118) Calcium Level 10.6 mg/dL (8.4-10.2) Total Bilirubin 2.2 mg/dL (0.2-1.2) Aspartate Amino Transf (AST/SGOT) 15 IU/L (5-34) Alanine Aminotransferase (ALT/SGPT) 14 IU/L (0-55) Alkaline Phosphatase 121 IU/L (40-150) Creatine Kinase 35 IU/L (29-168) Creatine Kinase MB 1.40 ng/mL (0-5.0) Troponin I 0.014 ng/mL (0-0.300) Total Protein 8.0 g/dL (6.5-8.1) Albumin 4.0 g/dL (3.5-5.0) Globulin 4.0 g/dL (2.3-3.5) Albumin/Globulin Ratio 1.0 (0.8-2.0) Urine Color Yellow (YELLOW) Urine Clarity Clear (CLEAR) Urine pH 6 (5 - 7) Urine Specific [place] <=1.005 (1.010-1.025) Urine Protein Negative (NEGATIVE) Urine Glucose (UA) 2+ (NEGATIVE) Urine Ketones Negative (NEGATIVE) Urine Blood Negative (NEGATIVE) Urine Nitrite Negative (NEGATIVE) Urine Bilirubin Negative (NEGATIVE) Urine Urobilinogen 0.2 mg/dL (0.2 - 1) Urine Leukocyte Esterase Negative (NEGATIVE) Urine RBC 0-5 /HPF (0-5) Urine WBC 21-50 /HPF (0-5) Urine Epithelial Cells Few /LPF (NONE) Urine Transitional Epithelial Cells Few (NONE) Urine Renal Epithelial Cells Few (NONE) Urine Bacteria Few /HPF (NONE) Lab results reviewed: Yes Laboratory comments blood sugar 526 Imaging Imaging results reviewed: Yes Impressions EXAMINATION: CHEST SINGLE (PORTABLE) INDICATION: ^chest pain ^[id number] ^2239 ^Y COMPARISON: 08/15/2019 FINDINGS: AP view TUBES and LINES: None. LUNGS: Lungs are well inflated. Lungs are clear. There is no evidence of pneumonia or pulmonary edema. PLEURA: No pleural effusion or pneumothorax. The previously seen pleural effusions have resolved. HEART AND MEDIASTINUM: The cardiomediastinal silhouette is unremarkable. BONES AND SOFT TISSUES: No acute osseous lesion. Soft tissues are unremarkable. UPPER ABDOMEN: No free air under the diaphragm. IMPRESSION: No acute thoracic abnormality. Interval resolution of the previously seen pleural effusions. Signed by: Edil Hamilton MD on 08/28/2019 1:00 AM Dictated By: EDIL HAMILTON MD Transcribed By: EFREM on 08/28/1999 COPY TO: AUSTIN JACOBSEN MD~ Procedures Procedures Procedure: PT HAS Q WAVES IN V1,V2,V3,III 12 Lead ECG Interpretation Senior Gis Analyst: Interpreted by ED physician Rhythm: sinus tachycardia Rate: tachycardia (122) QRS axis: normal ST Segments Normal: Yes Q Waves: V3 Clinical Impression: abnormal ECG Critical Care Time Subsequent provider I assumed direction of critical care for this patient from another provider of my specialty. Assessment & Plan Assessment & Plan Problems: (1) UTI (urinary tract infection) (2) Hyperglycemia due to diabetes mellitus Assessment & Plan pt presents with c/o elevated blood sugar over 600, pt has h/o dka, also c/o chest pain since this am which is vague in character, cbc, cmp, ekg, cardiac enzymes, ua, cxr ordered to eval for/rule out dka, uti, pneumonia, myocardial infarction ns 1 liter iv bolus ordered pt [facility] bs of 526, 12 units reg insulin sq ordered Reassessment Reassessment blood sugar now 255, heart rate 91 Last Vital Signs Date Time Temp Pulse Resp B/P (MAP) Pulse Ox O2 Delivery O2 Flow Rate FiO2 08/27/19 21:57 98.6 123 20 175/92 95 Home Meds Reported Medications Pantoprazole Sodium* (PROTONIX) 40 Mg Tablet., 40 MG PO DAILY, TAB 08/17/19 Aspirin (ASPIR 81) 81 Mg Tablet., 81 MG PO DAILY 08/17/19 Spironolactone (ALDACTONE) 25 Mg Tablet, 25 MG PO DAILY 08/17/19 Furosemide (LASIX) 40 Mg Tablet, 40 MG PO DAILY, #30 TAB 08/17/19 Clopidogrel Bisulfate (CLOPIDOGREL) 75 Mg Tablet, 75 MG PO DAILY, #30 TAB 09/17/18 Omeprazole (OMEPRAZOLE) 40 Mg Capsule.dr, 20 MG PO DAILY 09/17/18 Levothyroxine Sodium (LEVOTHYROXINE SODIUM) 100 Mcg Vial, 150 MCG PO DAILY, VIAL 08/07/18 Clopidogrel Bisulfate* (PLAVIX) 75 Mg Tablet, 75 MG PO DAILY, #30 TAB 08/07/18 Omeprazole (OMEPRAZOLE) 20 Mg Capsule.dr, 20 MG PO DAILY 08/07/18 Metoprolol Tartrate (METOPROLOL TARTRATE) 25 Mg Tablet, 25 MG PO BID, TAB 08/07/18 Atorvastatin Calcium (LIPITOR) 20 Mg Tablet, 40 MG PO HS, #30 TAB 08/07/18 Temazepam (TEMAZEPAM) 15 Mg Capsule, 15 MG PO HS 08/07/18 Clonazepam (KLONOPIN) 0.5 Mg Tablet, 0.5 MG PO DAILY 08/07/18 Hydrocodone Bit/Acetaminophen (NORCO 5-325 TABLET) 1 Each Tablet, 1 EACH PO Q8H PRN for pain, TAB 08/07/18 Metoprolol Tartrate (METOPROLOL TARTRATE) 25 Mg Tablet, 25 MG PO BID, TAB 01/01/14 Atorvastatin Calcium (LIPITOR) 20 Mg Tablet, 40 MG PO DAILY, #30 TAB 01/01/14 Insulin Lispro (HUMALOG) 100 Unit/1 Ml Cartridge, 8 UNITS SQ TID 10/16/13 Temazepam (TEMAZEPAM) 15 Mg Capsule, 15 MG PO HS 06/04/13 Clonazepam (Clonazepam) 0.5 Mg Tablet, 0.5 MG PO DAILY 11/16/11 Insulin Glargine,Hum.rec.anlog (Lantus) 100 Unit/1 Ml Vial, 15 UNITS SC Q12H 11/16/11 Hydrocodone Bit/Acetaminophen (Hydrocodone-Apap 7.5-325 Mg Tb) 1 Each Tablet, 1 TAB PO TID PRN 11/16/11 Levothyroxine Sodium (Levothyroxine Sodium) 88 Mcg Tablet, 150 MCG PO DAILY 11/16/11 AUSTIN JACOBSEN MD August 27, 2019 22:16
[2019-08-27] MEDS ORDERED: SODIUM CHLORIDE 0.9% 1000ML 1,000 ML IV ONE (22:30)
[2019-08-27 22:34] LABS: BILIRUBIN,URINE NEGATIVE (NEGATIVE); CLARITY,URINE CLEAR (CLEAR); COLOR,URINE YELLOW (YELLOW); KETONES,URINE NEGATIVE (NEGATIVE); LEUKOCYTE ESTERASE ,URINE NEGATIVE (NEGATIVE); NITRITE,URINE NEGATIVE (NEGATIVE); PROTEIN,URINE DIPSTICK NEGATIVE (NEGATIVE); URINE UROBILINOGEN 0.2 mg/dL (0.2 - 1)
[2019-08-27 22:40] LABS: BACTERIA,URINE FEW /HPF; EPITHELIAL CELLS,URINE FEW /LPF; RBC,URINE 0-5 /HPF (0-5); RENAL EPITHELIAL CELLS,URINE FEW; TRANSITIONAL EPI CELLS,URINE FEW; WBC,URINE (MAN) 21-50 /HPF (0-5)
[2019-08-28 00:19] LABS: BASOPHILS # (AUTO) 0.1 (0.0-0.1); BASOPHILS % 0.5 % (0.0-1.0); EOSINOPHILS # (AUTO) 0.1 (0.0-0.4); EOSINOPHILS % 0.5 % (0.0-6.0); HEMOGLOBIN 11.9 g/dL (12.0-16.0); LYMPHOCYTES # (AUTO) 2.6 (1.0-3.2); MEAN CORPUSCULAR HEMOGLOBIN 28.7 pg (28-32); MEAN CORPUSCULAR VOLUME 82.1 fL (81-99); MONOCYTES # (AUTO) 0.9 (0.2-0.8); MONOCYTES % 9.6 % (4.4-11.3); NEUTROPHILS % 62.1 % (38.7-80.0); PLATELET COUNT 443 x10e3/uL (140-360); RED BLOOD COUNT 4.14 x10e6/uL (3.6-5.1); RED CELL DISTRIBUTION WIDTH 13.1 % (11.7-14.4)
[2019-08-28 00:38] LABS: ANION GAP 20.4 mmol/L (8-16); CREATININE, SERUM 1.26 mg/dL (0.57-1.11); POTASSIUM 3.4 mmol/L (3.5-5.1)
[2019-08-28 00:45] LABS: CREATINE KINASE MB 1.4 ng/mL (0-5.0)
[2019-08-28 00:59] LABS: CALCIUM 10.6 mg/dL (8.4-10.2)
[2019-08-28] MEDS ORDERED: INSULIN REGULAR, HUMAN 100 UNIT/1 ML 3ML VIAL SQ ONE (01:00)
[2019-08-28] MEDS ORDERED: INSULIN REGULAR, HUMAN 100 UNIT/1 ML 3ML VIAL ONE (01:03)
--- NOTE | 2019-08-28 01:03 | Diagnostic Imaging Report ---
EXAMINATION: CHEST SINGLE (PORTABLE) INDICATION: ^chest pain ^[id number] ^2240 ^Y COMPARISON: 08/15/2019 FINDINGS: AP view TUBES and LINES: None. LUNGS: Lungs are well inflated. Lungs are clear. There is no evidence of pneumonia or pulmonary edema. PLEURA: No pleural effusion or pneumothorax. The previously seen pleural effusions have resolved. HEART AND MEDIASTINUM: The cardiomediastinal silhouette is unremarkable. BONES AND SOFT TISSUES: No acute osseous lesion. Soft tissues are unremarkable. UPPER ABDOMEN: No free air under the diaphragm. IMPRESSION: No acute thoracic abnormality. Interval resolution of the previously seen pleural effusions. Signed by: Jose Melo MD on 08/28/2019 1:00 AM
[2019-08-28] MEDS ORDERED: METOPROLOL TARTRATE INJ 1 MG/ML VIAL IV ONE (02:30)
[2019-08-28] MEDS ORDERED: CEFTRIAXONE SOD 1 GM/NS 50 ML 50 ML IV ONE (03:00)
[2019-08-28 03:25] LABS: ANION GAP 17.3 mmol/L (8-16); CALCIUM 10.2 mg/dL (8.4-10.2); CREATININE, SERUM 0.96 mg/dL (0.57-1.11); POTASSIUM 3.3 mmol/L (3.5-5.1)
[2019-08-28 04:10] VITALS: BP 154/78
== END 2019-08-28 04:38 | disposition home or self-care (01) ==
LOC: ER 21:38
DX: E11.65 Type 2 diabetes mellitus with hyperglycemia (principal); N39.0 Urinary tract infection, site not specified; R07.89 Other chest pain; I10 Essential (primary) hypertension; E03.9 Hypothyroidism, unspecified; I25.10 Atherosclerotic heart disease of native coronary artery without angina pectoris; F41.9 Anxiety disorder, unspecified; M54.9 Dorsalgia, unspecified; G89.29 Other chronic pain; I25.2 Old myocardial infarction; Z95.5 Presence of coronary angioplasty implant and graft; Z96.641 Presence of right artificial hip joint
CPT/HCPCS: 36415; 71045; 80048; 80053; 81001; 82550; 82553; 82948; 84484; 85025; 87086; 93005; 96374; 99284; J0696; J1817; J7030

== ENCOUNTER 2019-09-12 11:54 | Outpatient (RCR) | payer MEDICARE ==
--- NOTE | 2019-09-03 13:05 | NUR ---
Clinical Swallow Evaluation/Initial Treatment Session Patient is a 78 year old female with diagnosis of dysphagia, HTN, DM, hypothyroidism, esophageal strictures s/p dilation, hyperlipidemia, osteoporosis, GERD, CAD s/p stent placement. Pt participated in a modified barium swallow study on 08/11/19. Pt presented with intermittent trace aspiration of thin liquids. Laryngeal/vallecular residue present with multiple consistencies. Aspiration of refluxed materials multiple times during exam. Moderate vallecular residue after the swallow of multiple consistencies. Recommendation was made for dysphagia therapy to increase strength and coordination of swallow. Patient was seen today in the outpatient clinic for initial treatment of Neuromuscular Electrical Stimulation (NMES) with VitalStim Therapy and traditional dysphagia therapy with pharyngeal exercises. Pt was seen with daughter present. Oral motor exam revealed function that was grossly within normal limits. Patient tolerated room air. Hearing appeared to be WFL. Patient reported no change in her swallow skills since the modified barium swallow study. Pt confirmed that she continues to choke and cough intermittently during meal times but does not have as much difficulty since her esophageal dilatation 08/12/19. Provided extensive education re: need for therapy, purpose of exercises and NMES, and future plan of care. Pt indicated understanding. Pt was given water and hard candy. Pt was instructed to take small bites/sips and swallow hard, feeling all the muscles in her throat contract. Placement 3b was used to target the mylohyoid muscle, the anterior belly of the digastric muscle, the sternohyoid muscle, the omohyoid muscle, the geniohyoid muscle, and the middle pharyngeal constrictors. Channel 1 of the electrodes was aligned horizontally just above the hyoid bone and channel 2 of the electrodes was aligned horizontally at the level of the thyroid notch. This placement was used to improve base of tongue strength, pharyngeal constriction, and UES function. Pt initially tolerated 3.0 mA, but as the session progressed pt tolerated 5.5 mA. Pt received 5450 minutes of stimulation. Cough noted X 3, throat clear X 1, wet vocal quality X 0. During NMES an exercise program was presented, demonstrated, and discussed. Pt completed the exercises with minimal assistance. A home program was assigned. Pt verbalized understanding of the home exercise program. Education provided as indicated. All questions were answered. Pt reported that twice per week was her preferred frequency of treatment. Impressions: Pt tolerated initial session of NMES well. She continues to report and demonstrate s/s of aspiration during meals which significantly interferes with her quality of life. Pt is an excellent candidate for dysphagia exercises and NMES for improvement of strength and coordination of swallow. Recommendations: 1.Dysphagia therapy to include traditional exercises and NMES 2X/week for 6 weeks for a total of 12 treatment sessions 2.Home exercise program 3.Repeat MBS in 6 weeks with new goals to be determined at that time. Strawberry Grower Goal: Pt will tolerate least restrictive diet without s/s of aspiration as judged by an objective evaluation. Short Term Goals: 1.Pt will complete 3 repetitions of a set of dysphagia exercises to improve laryngeal elevation, base of tongue retraction, and laryngeal closure, 10 repetitions per exercise, with minimal cues. 2.Pt will tolerate NMES for 45 60 minutes with no clinical s/s of aspiration to improve strength of pharyngeal constrictors, hyolaryngeal excursion, and safety with po intake. 3.Pt will complete home dysphagia exercise program targeting laryngeal elevation, base of tongue strength, and cricopharyngeal function independently. 4.Pt will follow aspiration precautions with independence. 5.Pt will participate in a repeat Modified Barium Swallow study to objectively re-assess swallow safety and function and determine safest diet. Leny Venegas M.A. [employer] MACHINE Date of Session: 09/03/19 Dysphagia Evaluation X 64 minutes DEBRA NOMS Rating for Swallowing: Level 5
== END 2019-09-14 ==
LOC: ST 11:54
PROVIDERS: ATTEND Internal Medicine
DX: I69.991 Dysphagia following unspecified cerebrovascular disease (principal); I69.920 Aphasia following unspecified cerebrovascular disease; K22.2 Esophageal obstruction

== ENCOUNTER 2019-10-13 11:48 | Outpatient (RCR) | payer MEDICARE ==
--- NOTE | 2019-09-22 11:47 | NUR ---
ST NOTE: Pt ill, will return to Speech Therapy on 09/26/19
--- NOTE | 2019-09-29 12:13 | NUR ---
Pt no show for therapy session today. Will phone pt later this week to see if she can keep apt on 10/03/19
--- NOTE | 2019-10-10 12:16 | NUR ---
ST NOTE: Pt no show for therapy, phoned daughter, pt will be here on Sunday
--- NOTE | 2019-10-13 12:34 | NUR ---
Clinical Swallow Evaluation/Initial Treatment Session Patient is a 78 year old female with diagnosis of dysphagia, HTN, DM, hypothyroidism, esophageal strictures s/p dilation, hyperlipidemia, osteoporosis, GERD, CAD s/p stent placement. Pt participated in a modified barium swallow study on 08/11/19. Pt presented with intermittent trace aspiration of thin liquids. Laryngeal/vallecular residue present with multiple consistencies. Aspiration of refluxed materials multiple times during exam. Moderate vallecular residue after the swallow of multiple consistencies. Recommendation was made for dysphagia therapy to increase strength and coordination of swallow. Patient was seen today in the outpatient clinic for her 7th session of treatment of Neuromuscular Electrical Stimulation (NMES) with VitalStim Therapy and traditional dysphagia therapy with pharyngeal exercises. Pt was seen with no family present. Oral motor exam revealed function that was grossly within normal limits. Patient tolerated room air. Hearing appeared to be WFL. Patient reported no change in her swallow skills since the modified barium swallow study. Pt confirmed that she continues to choke and cough intermittently during meal times but does not have as much difficulty since her esophageal dilatation 08/12/19. Pt was given water and hard candy. Pt was instructed to take small bites/sips and swallow hard, feeling all the muscles in her throat contract. Placement 3b was used to target the mylohyoid muscle, the anterior belly of the digastric muscle, the sternohyoid muscle, the omohyoid muscle, the geniohyoid muscle, and the middle pharyngeal constrictors. Channel 1 of the electrodes was aligned horizontally just above the hyoid bone and channel 2 of the electrodes was aligned horizontally at the level of the thyroid notch. This placement was used to improve base of tongue strength, pharyngeal constriction, and UES function. Pt tolerated 11.0 mA, Pt received 60 minutes of stimulation. Cough noted X 5, throat clear X 5, wet vocal quality X 0. Impressions: Pt tolerated initial session of NMES well. She continues to report and demonstrate s/s of aspiration during meals which significantly interferes with her quality of life. Pt is an excellent candidate for dysphagia exercises and NMES for improvement of strength and coordination of swallow. Recommendations: 1. Dysphagia therapy to include traditional exercises and NMES 2X/week for 4 weeks for a total of 12 treatment sessions (7 completed to date) 2. Home exercise program 3. Repeat MBS in 4 weeks with new goals to be determined at that time. Casing Running Machine Tender Goal: Pt will tolerate least restrictive diet without s/s of aspiration as judged by an objective evaluation. Short Term Goals: 1. Pt will complete 3 repetitions of a set of dysphagia exercises to improve laryngeal elevation, base of tongue retraction, and laryngeal closure, 10 repetitions per exercise, with minimal cues. 2. Pt will tolerate NMES for 45 60 minutes with no clinical s/s of aspiration to improve strength of pharyngeal constrictors, hyolaryngeal excursion, and safety with po intake. 3. Pt will complete home dysphagia exercise program targeting laryngeal elevation, base of tongue strength, and cricopharyngeal function independently. 4. Pt will follow aspiration precautions with independence. 5. Pt will participate in a repeat Modified Barium Swallow study to objectively re-assess swallow safety and function and determine safest diet. Cecelia Driscoll M.S. [facility] Date of Session: 10/13/19 Dysphagia Evaluation X 62 minutes DEBRA NOMS Rating for Swallowing: Level 5 MD Signature date
== END 2019-10-14 ==
LOC: ST 11:48
PROVIDERS: ATTEND Internal Medicine
DX: R13.13 Dysphagia, pharyngeal phase (principal); K22.2 Esophageal obstruction

== ENCOUNTER 2019-10-20 11:42 | Outpatient (RCR) | payer MEDICARE ==
--- NOTE | 2019-10-24 13:49 | NUR ---
ST Note: pt did not keep appointment.
--- NOTE | 2019-10-27 12:13 | NUR ---
ST NOTES: Pt no show for Speech Therapy, spoke with daughter, pt is having back pain and is unable to attend. Pt had shots last in her back to alleviate the pain. If pt is unable to keep this Sunday's apt she will phone this office.
--- NOTE | 2019-11-03 13:35 | NUR ---
ST NOTE: This is the fourth session that the pt did not attend therapy without calling. The pt/daughter have been phoned multiple times and assured the therapist that the pt will return, she has not. As of today the pt is d/c from Speech Therapy
== END 2019-11-14 ==
LOC: ST 11:42
PROVIDERS: ATTEND Internal Medicine
DX: I69.920 Aphasia following unspecified cerebrovascular disease (principal); R13.13 Dysphagia, pharyngeal phase; K22.2 Esophageal obstruction